=== PATIENT | female | born 1990 ===

== ENCOUNTER 2020-12-24 11:12 | Outpatient (REF) | payer OTHER, SELFPAY ==
[2020-12-24 13:37] LABS: Hematocrit 36.4 % (37-47); Hemoglobin 11.3 g/dl (12.0-16.0); Mean Corpuscular Hemoglobin 26.3 pg (27.0-33.0); Mean Corpuscular Volume 84.8 fL (80-98); Platelet Count 378 X10*3/uL (160-400); Red Blood Count 4.29 X10*6/uL (4.20-5.50); Red Cell Distribution Width 14.1 % (11.0-16.0); White Blood Count 8.3 X10*3/uL (4.8-10.8)
[2020-12-24 14:06] LABS: Glucose Random 80 mg/dL (60-115)
[2020-12-24 14:22] LABS: Thyroid Stimulating Hormone 3.65 uIU/mL (0.32-4.0)
[2020-12-24 16:35] LABS: CT PCR NOT DETECTED (Not Detect.); NG PCR NOT DETECTED (Not Detect.)
[2020-12-25 09:24] LABS: BV Int Neg Control Negative (Negative); BV Int Pos Control Positive (Positive)
[2020-12-27 00:36] LABS: HPV mRNA E6/E7 rflx Not Detected (Not Detected)
== END 2020-12-24 11:13 | disposition home or self-care (01) ==
LOC: HO.LAB 11:12
PROVIDERS: Visit Provider Advanced Practice Midwife
DX: N92.4 Excessive bleeding in the premenopausal period (principal); E66.01 Morbid (severe) obesity due to excess calories; Z68.42 Body mass index [BMI] 45.0-49.9, adult; Z87.42 Personal history of other diseases of the female genital tract; Z20.2 Contact with and (suspected) exposure to infections with a predominantly sexual mode of transmission
CPT/HCPCS: 36415; 82947; 84443; 85027; 87480; 87491; 87510; 87591; 87624; 87660; 88142; 99212

== ENCOUNTER 2021-03-26 14:38 | Outpatient (REF) | payer OTHER, SELFPAY ==
--- NOTE | ~2021-03-26 | US_ITS ---
EXAMINATION: PELVIC ULTRASOUND CLINICAL INFORMATION: Obesity COMPARISON: Previous exam March 2018 TECHNIQUE: Transabdominal and transvaginal pelvic ultrasound was performed. Transvaginal exam was performed for better visualization of the uterus and ovaries. FINDINGS: The uterus is anteverted and retroflexed and measures 8.9 x 3.5 x 5.4 cm in dimension. No focal uterine lesion is seen. Endometrial thickness is normal measuring 1.4 cm. There is polycystic appearance of both ovaries with multiple small peripheral cysts or follicles. The right ovary measures 3.2 x 3.1 x 3.1 cm, volume 16 mL in the left ovary measures 3.1 x 2.6 x 3 cm, volume 13 mL. There is no fluid in the pelvis. US/US transvaginal IMPRESSION: Polycystic appearing ovaries. Normal thickness endometrium.
--- NOTE | ~2021-03-26 | US_ITS ---
EXAMINATION: PELVIC ULTRASOUND CLINICAL INFORMATION: Obesity COMPARISON: Previous exam March 2018 TECHNIQUE: Transabdominal and transvaginal pelvic ultrasound was performed. Transvaginal exam was performed for better visualization of the uterus and ovaries. FINDINGS: The uterus is anteverted and retroflexed and measures 8.9 x 3.5 x 5.4 cm in dimension. No focal uterine lesion is seen. Endometrial thickness is normal measuring 1.4 cm. There is polycystic appearance of both ovaries with multiple small peripheral cysts or follicles. The right ovary measures 3.2 x 3.1 x 3.1 cm, volume 16 mL in the left ovary measures 3.1 x 2.6 x 3 cm, volume 13 mL. There is no fluid in the pelvis. US/US pelvic complete IMPRESSION: Polycystic appearing ovaries. Normal thickness endometrium.
== END 2021-03-26 14:39 | disposition home or self-care (01) ==
LOC: HO.US 14:38
PROVIDERS: Visit Provider Advanced Practice Midwife
DX: N92.4 Excessive bleeding in the premenopausal period (principal); E66.01 Morbid (severe) obesity due to excess calories
CPT/HCPCS: 76830; 76856

== ENCOUNTER → 2021-04-03 15:13 | Outpatient (BNVA) | payer OTHER, SELFPAY | PROVIDERS: Visit Provider Advanced Practice Midwife ==

== ENCOUNTER 2021-06-16 13:33 | Outpatient (REF) | payer OTHER, SELFPAY ==
[2021-06-17 01:58] LABS: CT PCR NOT DETECTED (Not Detect.); NG PCR NOT DETECTED (Not Detect.)
[2021-06-17 09:14] LABS: BV Int Neg Control Negative (Negative); BV Int Pos Control Positive (Positive)
== END 2021-06-16 13:34 | disposition home or self-care (01) ==
LOC: HO.LAB 13:33
PROVIDERS: Visit Provider Advanced Practice Midwife
DX: Z01.419 Encounter for gynecological examination (general) (routine) without abnormal findings (principal); N92.1 Excessive and frequent menstruation with irregular cycle; E28.2 Polycystic ovarian syndrome; E66.01 Morbid (severe) obesity due to excess calories; N92.4 Excessive bleeding in the premenopausal period; Z87.42 Personal history of other diseases of the female genital tract; Z20.2 Contact with and (suspected) exposure to infections with a predominantly sexual mode of transmission
CPT/HCPCS: 58100; 81025; 87480; 87491; 87510; 87591; 87660; 88305; 99212

== ENCOUNTER → 2021-12-24 14:06 | Outpatient (BNVA) | payer OTHER, SELFPAY | PROVIDERS: Visit Provider Advanced Practice Midwife | DX: E28.2 Polycystic ovarian syndrome (principal); N92.4 Excessive bleeding in the premenopausal period; E66.01 Morbid (severe) obesity due to excess calories; Z87.42 Personal history of other diseases of the female genital tract; Z68.41 Body mass index [BMI] 40.0-44.9, adult | CPT/HCPCS: 99212 ==

== ENCOUNTER 2022-12-20 05:57 | Emergency (ER) | payer OTHER, SELFPAY ==
--- NOTE | ~2022-12-20 | XR_ITS ---
EXAMINATION: XR CHEST CLINICAL INFORMATION: Cough COMPARISON: 10/11/2017 TECHNIQUE: AP portable upright view of the chest was obtained. FINDINGS: No significant abnormality is noted involving the heart, lungs, mediastinum, bony thorax or soft tissues. XR/XR chest 1V IMPRESSION: Unremarkable examination.
[2022-12-20 06:07] VITALS: BP 114/86; PULSE 70; RESP 15; TEMP 36.6; O2SAT 100; BMI 35.4
[2022-12-20 06:38] LABS: IDNOW Serial# 08D9AD1C; Strep A Nucleic Acid Negative (Negative)
[2022-12-20 07:07] LABS: Influenza A PCR NEGATIVE (Negative); Influenza B PCR NEGATIVE (Negative); Resp Syncy Virus RNA Qual PCR NEGATIVE (Negative); SARS COV2 PCR INHOUSE NEGATIVE (Negative)
[2022-12-20 07:14] VITALS: BP 113/76; PULSE 68; RESP 16; TEMP 36.9; O2SAT 100
--- NOTE | 2022-12-20 07:15 | ED_ITS ---
HPI - General Adult General Chief complaint: General Medical Stated complaint: body aches, sore throat Time Seen by Provider: 12/20/22 06:54 Source: patient, family and asl interpreter Mode of arrival: ambulatory Limitations: no limitations History of Present Illness HPI narrative: 32-year-old female came in for evaluation of sore throat, nasal congestion and coughing with no sputum, generalized body ache, no fever, no chills. 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 Related Data Home Medications Medication Instructions Recorded Confirmed lorazepam 1 mg tablet 1 mg PO DAILY PRN 04/03/21 12/24/21 trazodone 50 mg tablet 50 mg PO BEDTIME PRN 04/03/21 12/24/21 Allergies Allergy/AdvReac Type Severity Reaction Status Date / Time meperidine [From DEMEROL] Allergy Unknown SWELLING, Verified 12/24/21 14:46 ITCHY Review of Systems Review of Systems: All other systems are reviewed and are negative Constitutional: Reports as per HPI and Reports no additional constitutional com plaints Eyes: Reports as per HPI and Reports no additional eye complaints Reports system reviewed and no additional complaints, except as documented Cardiovascular: Reports as per HPI and Reports no additional cardiovascular complaints Respiratory: Reports as per HPI and Reports no additional respiratory complaints Gastrointestinal: Reports as per HPI and Reports no additional gastrointestinal complaints Genitourinary: Reports no additional female genitourinary complaints Musculoskeletal: Reports no additional musculoskeletal complaints Skin/Breast: Reports system reviewed and no additional complaints, except as docu Psychiatric: Reports no additional psychiatric complaints Endocrine: Reports no additional endocrine complaints Hematologic/Lymphatic: Reports no additional hematologic/lymphatic complaints Allergic/Immunologic: Reports no additional allergic/immunologic complaints Reports system reviewed and no additional complaints, except as documented and Reports Abnormal speech present [facility] Past Medical History Medical History Anxiety Depressed Surgical History History of loop electrical excision procedure (LEEP) Hx of cholecystectomy Family History Family History Mother HTN (hypertension) Diabetes Father HTN (hypertension) Social History Social History Alcohol intake: never Advance Directives: No Gender identity: Female Physical Exam ED Vital Signs: Vital Signs - 24 hr 12/20/22 06:07 12/20/22 07:14 Temperature 97.9 F 98.4 F Pulse Rate 70 68 Respiratory Rate 15 16 Blood Pressure 114/86 113/76 Pulse Oximetry 100 100 Oxygen Delivery Method Room Air Room Air BMI result Body Mass Index 35.4 Vital signs have been reviewed as appeared to be correct. Blood pressure normal. Heart rate normal. Respiration rate normal. Temperature normal. Oxygen saturation normal. Appearance: Alert. Oriented X3. No acute distress. Head: Normal external exam. Normocephalic. Atraumatic. No Jordan signs noted. No raccoon eyes noted Eyes: PERRLA. EOMI. Conjunctiva and sclera normal. Eyelids normal. ENT: TM's Normal. Pharynx normal. Uvula midline. Moist mucous membranes. No trismus noted. No drooling noted. No muffled voice noted. Neck: Normal inspection. Neck supple. FROM. No adenopathy. Thyroid Normal. No meningeal signs. No neck mass noted. CVS: Normal heart rate and rhythm. Heart sound normal. No murmurs noted. Pulses normal throughout. Respiratory: No respiratory distress. Painless inspiration. Breath sounds normal. No wheezes/rales/rhonchi noted. Chest nontender. No accessory muscle usage noted or decreased air movement noted. Abdomen: Soft and nontender. Bowel sounds normal in all 4 quadrants. No distention noted. No organomegaly noted. No visible injury noted. Back: No CVA tenderness. Full range of motion noted. Skin: Skin warm and dry. Normal skin color. Normal skin turgor. No rashes/lesions/lacerations noted. Extremities: No lower extremity edema. Extremities exhibit normal range of motion. Extremities nontender. Neuro: Oriented X 3. Cranial nerve exam: II-XII are grossly intact No motor deficit. No sensory deficit. Reflexes normal. Course Course Course Narrative: 32-year-old female came in with flu-like symptoms. Patient has a negative rapid strep, negative upper respiratory panel. Will reassure use Tylenol/ibuprofen p.r.n. symptoms. Medical Decision Making Differential Diagnosis Differential Diagnoses: The differential diagnosis associated with the presentation includes (Strep pharyngitis, viral infection. Pneumonia) Lab Data MDM Lab Attestation statement: I reviewed the patient's lab results. Labs: Lab Results 12/20/22 12/20/22 Range/Units 06:23 06:23 Influenza Type A (PCR) NEGATIVE (Negative) Influenza Type B (PCR) NEGATIVE (Negative) RSV RNA Qual (PCR) NEGATIVE (Negative) SARS-CoV-2 RNA (RT-PCR) NEGATIVE (Negative) S. pyogenes GrpA HENRIQUE Negative (Negative) Independent Interpretation I performed an independent interpretation of an: Plain X-Ray (Chest: No acute intrathoracic pathology.) Discharge Plan Discharge Clinical Impression: Acute viral syndrome Patient Disposition: Home, Self-Care Instructions: Viral Syndrome (ED) Additional Instructions: Take Tylenol/ibuprofen 200 mg tablet ([id number]) every 6 hours if needed. Prescriptions: No Action lorazepam 1 mg tablet 1 mg PO DAILY PRN trazodone 50 mg tablet 50 mg PO BEDTIME PRN Stand Alone Forms: Work/School Release
--- NOTE | 2022-12-20 07:15 | PC.NURSE ---
assumed care of patient, VSS, resting comfortably, awaiting swab results
[2022-12-20 09:03] VITALS: BP 102/75; PULSE 74; RESP 16; O2SAT 100
== END 2022-12-20 09:07 | disposition home or self-care (01) ==
PROVIDERS: Emergency Provider Emergency Medicine
DX: B34.9 Viral infection, unspecified (principal); M79.10 Myalgia, unspecified site; R05.9 Cough, unspecified; Z20.822 Contact with and (suspected) exposure to COVID-19; Z20.828 Contact with and (suspected) exposure to other viral communicable diseases; Z79.899 Other long term (current) drug therapy
CPT/HCPCS: 0241U; 36415; 71045; 87651; 99283

== ENCOUNTER 2023-08-17 15:09 | Outpatient (AMB) | payer OTHER, SELFPAY ==
--- OUTSIDE RECORDS SUMMARY | 2023-08-17 15:10 | XMS_ITS | Continuity of Care Document ---
Author Name Unknown Organization [facility] ter Address [address] [place] [id number]- Care Team Providers Care Dividend Deposit Entry Clerk Name Role Phone Not on Staff, PCP Primary Care Physician Unavail able Encounter [facility] Date(s): 03/10/20 - 03/11/[address] [address]- [facility] Encounter Diagnosis Abdominal pain(Final) - 03/11/20 Fever(Final) - 03/11/20 Discharge Disposition: A-D/C Home Attending Physician: Jerry Carlisle MD Admitting Physician: Jerry Carlisle MD Referring Physician: Not on Staff, Referring MD Allergies, Adverse Reactions, Alerts Substance Reaction Severity Status morphine Active Medications No Known Medications Results Radiology Reports * Exam Date Time Procedure Performing Provider Status 03/11/20 12:08 AM Chest Portable Lisbet Santillan ( Verified) Notes: (Chest Portable) Reason For Exam: Shortness of Breath RESULT: Chest Portable Chest Portable AP upright at 11:39 PM on 03/10/2020. Reason: Shortness of breath. COMPARISON: None. FINDINGS: LINES AND TUBES: None. LUNGS AND PLEURA: Clear lungs. Normal pulmonary vascularity. No pleural effusion. No pneumothorax. HEART, MEDIASTINUM AND STEPHANIE: Heart is normal in size. Normal mediastinal and hilar contour. BONES AND SOFT TISSUES: No acute abnormality. IMPRESSION: No acute abnormality. I have personally reviewed the images and I agree with this report. WSN: [id number] Ordering Physician: Main Swain Dictated By: Ruslan Sotelo DO Dictated Date/Time: 03/11/20 7:40 am Reviewed By: Mohit Castro MD Signed By: Mohit Castro MD Signed Date/Time: 03/11/20 7:45 am Transcribed By: WILDER Transcribed Date/Time: 03/11/20 5:07 am Vital Signs Most recent to oldest [Reference Range]: 1 2 3 Oxygen Saturation [94-100 %] 99 % (03/11/20 3:32 AM) 100 % (03/11/20 1:41 AM) 100 % (03/10/20 11:46 PM) Pulse Rate [55-90 bpm] 72 bpm (03/11/20 3:32 AM) 82 bpm (03/11/20 1:41 AM) 81 bpm (03/10/20 11:46 PM) Blood Pressure [90-138/55-84 mm Hg] 111/75mm Hg (03/11/20 3:32 AM) 113/53mm Hg (03/11/20 1:41 AM) 108/66mm Hg (03/10/20 11:46 PM) Respiratory Rate [16-30 br/min] 16 br/min (03/11/20 3:32 AM) 17 br/min (03/11/20 1:41 AM) 18 br/min (03/10/20 11:46 PM) Temperature [96.8-100.4 DegF] 98.2 DegF (03/11/20 3:32 AM) 98.2 DegF (03/10/20 11:46 PM) 98.3 DegF (03/10/20 10:16 PM) Mode of Delivery (Oxygen) Room air (03/11/20 3:32 AM) Room air (03/11/20 1:41 AM) Room air (03/10/20 11:46 PM) Blood pressure sites Arm, left (03/11/20 3:32 AM) Arm, left (03/11/20 1:41 AM) Arm, left (03/10/20 11:46 PM) Temperature Route Oral (03/11/20 3:32 AM) Oral (03/10/20 11:46 PM) Oral (03/10/20 10:16 PM)
--- OUTSIDE RECORDS SUMMARY | 2023-08-17 15:10 | XMS_ITS | Continuity of Care Document ---
Author Name Unknown Organization [facility] Address [address] [place] [address]- Care Team Providers Care Music Instructor Name Role Phone Not on Staff, PCP Primary Care Physician Unavail able Encounter [facility] [place] Date(s): 10/30/20 - 10/30/[address] [address]- Discharge Disposition: A-D/C Home Attending Physician: Lenin Seo DO Admitting Physician: Lenin Seo DO Referring Physician: Not on Staff, Referring MD Allergies, Adverse Reactions, Alerts Substance Reaction Severity Status morphine Active Demerol Active Results Orders for Microbiology Reports Name Date Urine Culture (URINE CULTURE) 10/30/20 Microbiology Reports TEST:Urine Culture STATUS:Unauthenticated BODY SITE: SOURCE:URINE COLLECTED DATE/TIME:10/30/20 6:28 PM Urine Culture SPECIMEN DESCRIPTION : URINE CLEAN CATCH/MIDSTREAM SPECIAL REQUESTS : NONE Reflexed from [id number] REPORT STATUS : PRELIMINARY REPORT Vital Signs Most recent to oldest [Reference Range]: 1 2 3 Height 160 cm (10/30/20 9:19 PM) 160 cm (10/30/20 6:15 PM) Weight 118 kg (10/30/20 9:19 PM) 118 kg (10/30/20 6:15 PM) Oxygen Saturation [94-100 %] 100 % (10/30/20 9:19 PM) 100 % (10/30/20 6:15 PM) 98 % (10/30/20 5:58 PM) Pulse Rate [55-90 bpm] 82 bpm (10/30/20 9:19 PM) 91 bpm *H* (10/30/20 6:15 PM) 94 bpm *H* (10/30/20 5:58 PM) Body Mass Index [18.5-24.99] 46.09 *>HHI* (10/30/20 9:19 PM) 46.09 *>HHI* (10/30/20 6:15 PM) Blood Pressure [90-138/55-84 mm Hg] 125/72mm Hg (10/30/20 9:19 PM) 122/82mm Hg (10/30/20 6:15 PM) Respiratory Rate [16-30 br/min] 18 br/min (10/30/20 9:19 PM) 19 br/min (10/30/20 6:15 PM) Temperature [96.8-100.4 DegF] 98.1 DegF (10/30/20 6:15 PM) Mode of Delivery (Oxygen) Room air (10/30/20 9:19 PM) Room air (10/30/20 6:15 PM) Blood pressure sites Arm, left (10/30/20 9:19 PM) Arm, left (10/30/20 6:15 PM) Temperature Route Oral (10/30/20 6:15 PM) Dry Weight 118 kg (10/30/20 9:19 PM) 118 kg (10/30/20 6:15 PM) Weight Obtained Via Patient/family state d (10/30/20 6:15 PM) Dry Weight Obtained Via Patient/family s tated (10/30/20 6:15 PM)
--- OUTSIDE RECORDS SUMMARY | 2023-08-17 15:10 | XMS_ITS | Continuity of Care Document ---
Author Name Unknown Organization [facility] Address [address] [place] [address]- Care Team Providers Care Fork Lift Truck Operator Name Role Phone Not on Staff, PCP Primary Care Physician Unavail able Encounter [facility] [place] Date(s): 09/18/21 - 09/19/[address] [address]- Discharge Disposition: A-D/C Walkout Attending Physician: Sebastián Max MD Admitting Physician: Sebastián Max MD Referring Physician: Not on Staff, Referring MD Allergies, Adverse Reactions, Alerts Substance Reaction Severity Status morphine Active Demerol Active Vital Signs Most recent to oldest [Reference Range]: 1 2 Oxygen Saturation [94-100 %] 97 % (09/18/21 9:11 PM) 100 % (09/18/21 8:52 PM) Pulse Rate [55-90 bpm] 93 bpm *H* (09/18/21 9:11 PM) 101 bpm *H* (09/18/21 8:52 PM) Blood Pressure [90-138/55-84 mm Hg] 120/ 77mm Hg (09/18/21 9:11 PM) Respiratory Rate [16-30 br/min] 18 br/mi n (09/18/21 9:11 PM) Temperature [96.8-100.4 DegF] 99.4 DegF (09/18/21 9:11 PM) Mode of Delivery (Oxygen) Room air (09/18/21 9:11 PM) Room air (09/18/21 8:52 PM) Blood pressure sites Arm, left (09/18/21 9:11 PM) Temperature Route Oral (09/18/21 9:11 PM)
--- OUTSIDE RECORDS SUMMARY | 2023-08-17 15:10 | XMS_ITS | Continuity of Care Document ---
Author Name Unknown Organization [facility] ter Address [address] [place] [id number]- Care Team Providers Care Mussel Opener Name Role Phone Not on Staff, PCP Primary Care Physician Unavail able [place] [facility] [place] - 12/21/[address] [address]- Discharge Disposition: A-D/C Home Attending Physician: Keesha Vasquez MD Admitting Physician: Keesha Vasquez MD Referring Physician: Not on Staff, Referring MD Allergies, Adverse Reactions, Alerts Substance Reaction Severity Status morphine Active Demerol Active Results Radiology Reports * Exam Date Time Procedure Performing Provider Status 12/21/21 2:59 PM Chest 2 Views Frontal and Lat Ekenbarg er , Venus L; Auth (Verified) Notes: (Chest 2 Views Frontal and Lat) Reason For Exam: Cough RESULT: Chest 2 Views Frontal and Lat Chest 2 Views Frontal and Lat HX OF PRESENT ILLNESS: Cough; Clinical Question(s): Pneumonia / Pneumonia COMPARISON: 03/10/2020 FINDINGS: LINES AND TUBES: None. LUNGS AND PLEURA: Clear lungs. Normal pulmonary vascularity. No pleural effusion. No pneumothorax. HEART, MEDIASTINUM AND STEPHANIE: Heart is normal in size. Normal mediastinal and hilar contour. BONES AND SOFT TISSUES: No acute abnormality. IMPRESSION: No evidence of acute abnormality. WSN: [id number] Ordering Physician: Keesha Vasquez Dictated By: Ruben Paulson MD Dictated Date/Time: 12/21/21 3:01 pm Reviewed By: Ruben Paulson MD Signed By: Ruben Paulson MD Signed Date/Time: 12/21/21 3:01 pm Transcribed By: WILDER Transcribed Date/Time: 12/21/21 3:00 pm Vital Signs Most recent to oldest [Reference Range]: 1 2 3 Height 155 cm (12/21/21 12:57 PM) Weight 120 kg (12/21/21 12:57 PM) Oxygen Saturation [94-100 %] 97 % (12/21/21 1:27 PM) 100 % (12/21/21 12:57 PM) 100 % (12/21/21 12:55 PM) Pulse Rate [55-90 bpm] 84 bpm (12/21/21 1:27 PM) 95 bpm *H* (12/21/21 12:57 PM) 96 bpm *H* (12/21/21 12:55 PM) Blood Pressure [90-138/55-84 mm Hg] 114/59mm Hg (12/21/21 1:27 PM) 133/78mm Hg (12/21/21 12:57 PM) Respiratory Rate [16-30 br/min] 15 br/min *L* (12/21/21 1:27 PM) 18 br/min (12/21/21 12:57 PM) Temperature [96.8-100.4 DegF] 98.0 DegF (12/21/21 1:27 PM) 98.0 DegF (12/21/21 12:57 PM) Mode of Delivery (Oxygen) Room air (12/21/21 1:27 PM) Room air (12/21/21 12:57 PM) Room air (12/21/21 12:55 PM) Temperature Route Oral (12/21/21 1:27 PM) Dry Weight 120 kg (12/21/21 12:57 PM) Social History Social History Type Response Smoking Status Never (less than 100 in lifetime) entered on: 12/21/21 Sex
--- NOTE | 2023-08-17 15:11 | A.OFFVIS_ITS ---
Intake Vital Signs 08/17/23 15:12 Height 5 ft 3 in Weight 203 lb BMI 36.0 BP 116/66 Intake Visit Reasons: Irregular menstrual Intake Note: having irregular periods Occupational Therapy Supervisor Required: Yes Occupational Therapy Supervisor Language: Faroese Allergies meperidine [From DEMEROL] Allergy (Unknown, Verified 08/17/23 15:16) SWELLING, ITCHY Medication List - Last Reconciled 08/17/23 by Judi Yanez CNM bupropion HCl 150 mg PO QAM escitalopram oxalate 20 mg PO DAILY lorazepam 1 mg PO DAILY PRN Is last menstrual period known: Yes Last menstrual period: 08/13/23 Post menopausal: No HPI Irregular menstrual HPI Details Patient is here to discuss her regular periods. She has been seen here in the past and full discussions have taken place of her regular periods she has had various procedures done including of an endometrial biopsy ultrasounds and a full discussions about PCOS and its role in her irregular menses at the time she was last seen she was not interested in having any more children and a Mirena was discussed and recommended it however she did not return for the Mirena. Today she is here with her 3 children and she tells me things are a little bit different now and now she is actually trying to have a baby she says she has been keeping track of her periods in her apps on her phone and has been working hard at it she cites the last few periods as the following: She had a period on May 23 and most for periods last about for 5 days, then she had a period on June 23 and then she had a period on July 26 then this last period came early on August 13 it stopped and started for a while but it was heavier on the and the and today is very little just a little china , she has been keeping track of predicted ovulation via a 2 different apps on her phone and more importantly she has been keeping track of her own symptoms. All of this was discussed with her previous visits as well. She also has made concerted efforts in the last year and half to lose weight and she was 260 lb at her heaviest and got down as low as 194 though today she is 202. She is continuing to try and eat healthy and is keeping track of her symptoms of ovulation as well including how she feels with libido and vaginal secretions. She is aware that she is 33 years old and she does not want to waste time and wait too long and she is wondering how long she should try and how long is too long. Discussed that with PCOS and increasing years that fertility does wane over time but I congratulated her on her weight loss and discussed how this d efinitely improved her chances. Additionally I did discuss that at age 33 with keeping very good records of efforts and proof of ovulation and considering using 0 P Nano's that she would need at least 6 months records before trying to be seen at [facility] reproductive infertility. I also did discuss the reality that many insurances are not accepted. But that if she did need any assistance with ovulation that is where she would need to be seen. Also discussed that there have been recent limitations on referrals in the past. I urged her to take advantage of every opportunity to maximize use of her time. She has an appointment at the end of the year and if she has not gotten by then that would be 6 months of trying with records and then perhaps we could place a referral though I did tell her of the limitations a referrals as well. I told her that we are no longer able to facilitate ovulation with medications and other modalities as was possible in the past. She did not know that the birthing center had closed so I informed her that as well and that we are sending everyone to [facility] now to deliver. [facility] Medical History Anxiety Depressed Surgical History History of loop electrical excision procedure (LEEP) Hx of cholecystectomy Family History Mother HTN (hypertension) Diabetes Father HTN (hypertension) Social History Alcohol intake: never Gender identity: Female Female Reproductive History Menstrual Age of Menarche: 9 Duration of menses: 3-5 days Date of last menstrual period: 08/13/23 control method: none Total pregnancies: 2 Full term: 2 Number of Living Children: 3 Multiple births: 1 Date of last pap smear: 12/25/20 (negative) History of abnormal pap smear: Yes (hx of leep) Physical Exam Vital Signs: Last Vital Signs BP 116/66 08/17/23 15:12 BMI result Body Mass Index 36.0 Results Reviewed Results Reviewed: Visits and evaluations of last year noted Assessment & Plan Assessment & Plan (1) Polycystic bilateral ovaries: Code(s): E28.2 - Polycystic ovarian syndrome (2) Hx of abnormal cervical Pap smear: Comment: CIN3 2016, 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 pap done 12/24/20=neg ,w neg hpv Code(s): Z87.42 - Personal history of other diseases of the female genital tract (3) Obesity, morbid, BMI 40.0-49.9: Comment: Patient has lost weight in concerted effort and is now BMI of 36.08/17/23. Code(s): E66.01 - Morbid (severe) obesity due to excess calories (4) Menorrhagia, premenopausal: Code(s): N92.4 - Excessive bleeding in the premenopausal period Coding Level of Care Code Est Pt Level 3 (95416) Diagnoses Polycystic bilateral ovaries E28.2 Hx of abnormal cervical Pap smear Z87.42 Obesity, morbid, BMI 40.0-49.9 E66.01 Menorrhagia, premenopausal N92.4
--- OUTSIDE RECORDS SUMMARY | 2023-08-17 15:11 | XMS_ITS | Continuity of Care Document ---
Author Name Unknown Organization [facility] Address [address] [place] [address]- Care Team Providers Care Able Seaman Name Role Phone Not on Staff, PCP Primary Care Physician Unavail able Encounter [facility] [place] Date(s): 02/17/22 - 02/17/[address] [address]- Discharge Disposition: A-D/C Walkout Attending Physician: Sebastián Max MD Admitting Physician: Sebastián Max MD Referring Physician: Not on Staff, Referring MD Allergies, Adverse Reactions, Alerts Substance Reaction Severity Status morphine Active Demerol Active Vital Signs Most recent to oldest [Reference Range]: 1 2 3 Height 160 cm (02/17/22 11:57 AM) Weight 100 kg (02/17/22 11:57 AM) Oxygen Saturation [94-100 %] 99 % (02/17/22 12:12 PM) 100 % (02/17/22 9:52 AM) 99 % (02/17/22 9:43 AM) Pulse Rate [55-90 bpm] 81 bpm (02/17/22 12:12 PM) 94 bpm *H* (02/17/22 9:52 AM) 88 bpm (02/17/22 9:43 AM) Blood Pressure [90-138/55-84 mm Hg] 121/72mm Hg (02/17/22 12:12 PM) 145/90mm Hg *H* (02/17/22 9:52 AM) Respiratory Rate [16-30 br/min] 17 br/min (02/17/22 9:52 AM) Temperature [96.8-100.4 DegF] 98.7 DegF (02/17/22 12:12 PM) 98.9 DegF (02/17/22 9:52 AM) Mode of Delivery (Oxygen) Room air (02/17/22 12:12 PM) Room air (02/17/22 9:52 AM) Room air (02/17/22 9:43 AM) Blood pressure sites Arm, right (02/17/22 12:12 PM) Arm, right (02/17/22 9:52 AM) Temperature Route Oral (02/17/22 12:12 PM) Oral (02/17/22 9:52 AM) Dry Weight 100 kg (02/17/22 11:57 AM) Dry Weight Obtained Via Patient/family s tated (02/17/22 11:57 AM) Social History Social History Type Response Smoking Status Never (less than 100 in lifetime) entered on: 12/21/21 Sex
--- OUTSIDE RECORDS SUMMARY | 2023-08-17 15:11 | XMS_ITS | Continuity of Care Document ---
Author Name Unknown Organization [facility] ter Address [address] [place] [address]- Care Team Providers Care Socially Responsible Investment Adviser Name Role Phone Not on Staff, PCP Primary Care Physician Unavail able Encounter [facility] [place] Date(s): 01/02/22 - 01/02/[address] [address]- Encounter Diagnosis Chest pain(Final) - 01/02/22 Discharge Disposition: A-D/C Long-Term, Usp, or Fdc Fac Attending Physician: Sebastián Tovar MD Admitting Physician: Sebastián Tovar MD Referring Physician: Not on Staff, Referring MD Allergies, Adverse Reactions, Alerts Substance Reaction Severity Status morphine Active Demerol Active Results Radiology Reports * Exam Date Time Procedure Performing Provider Status 01/02/22 3:11 PM Chest Portable Zora Enriquez; Auth (Ve rified) Notes: (Chest Portable) Reason For Exam: Pleuritic Pain RESULT: Chest Portable Chest Portable Reason: Pleuritic Pain; Clinical Question(s): Pneumothorax COMPARISON: 12/21/2021 FINDINGS: LINES AND TUBES: None. LUNGS AND PLEURA: Clear lungs. Normal pulmonary vascularity. No pleural effusion. No pneumothorax. HEART, MEDIASTINUM AND STEPHANIE: Heart is normal in size. Normal upper mediastinal and hilar contour. BONES AND SOFT TISSUES: No acute abnormality. IMPRESSION: Normal chest. WSN: [id number] Ordering Physician: Harrison Ramos Dictated By: Harrison Monroe MD Dictated Date/Time: 01/02/22 3:47 pm Reviewed By: Harrison Monroe MD Signed By: Harrison Monroe MD Signed Date/Time: 01/02/22 3:47 pm Transcribed By: WILDER Transcribed Date/Time: 01/02/22 3:47 pm Vital Signs Most recent to oldest [Reference Range]: 1 2 Oxygen Saturation [94-100 %] 99 % (01/02/22 6:35 PM) 100 % (01/02/22 1:52 PM) Pulse Rate [55-90 bpm] 73 bpm (01/02/22 6:35 PM) 93 bpm *H* (01/02/22 1:52 PM) Blood Pressure [90-138/55-84 mm Hg] 118/ 68mm Hg (01/02/22 6:35 PM) 147/76mm Hg *H* (01/02/22 1:52 PM) Respiratory Rate [16-30 br/min] 18 br/mi n (01/02/22 6:35 PM) 17 br/min (01/02/22 1:52 PM) Temperature [96.8-100.4 DegF] 98.5 DegF (01/02/22 1:52 PM) Mode of Delivery (Oxygen) Room air (01/02/22 6:35 PM) Room air (01/02/22 1:52 PM) Blood pressure sites Arm, right (01/02/22 6:35 PM) Arm, right (01/02/22 1:52 PM) Temperature Route Oral (01/02/22 1:52 PM) Social History Social History Type Response Smoking Status Never (less than 100 in lifetime) entered on: 12/21/21 Sex
--- OUTSIDE RECORDS SUMMARY | 2023-08-17 15:11 | XMS_ITS | Continuity of Care Document ---
Author Name Unknown Organization [facility] Address [address] [place] [address]- Care Team Providers Care Compression Molding Machine Setter Name Role Phone Not on Staff, PCP Primary Care Physician Unavail able Encounter [facility] [place] [place] Date(s): 12/25/20 - 12/26/[address] [address]- Discharge Disposition: A-D/C Walkout Attending Physician: Not on Staff, Attending MD Admitting Physician: Not on Staff, Admitting MD Referring Physician: Not on Staff, Referring MD Allergies, Adverse Reactions, Alerts Substance Reaction Severity Status morphine Active Demerol Active Vital Signs Most recent to oldest [Reference Range]: 1 2 Oxygen Saturation [94-100 %] 98 % (12/26/20 12:19 AM) 100 % (12/25/20 10:13 PM) Pulse Rate [55-90 bpm] 92 bpm *H* (12/26/20 12:19 AM) 100 bpm *H* (12/25/20 10:13 PM) Blood Pressure [90-138/55-84 mm Hg] 131/ 71mm Hg (12/26/20 12:19 AM) 137/92mm Hg (12/25/20 10:13 PM) Respiratory Rate [16-30 br/min] 18 br/mi n (12/26/20 12:19 AM) 16 br/min (12/25/20 10:13 PM) Temperature [96.8-100.4 DegF] 98.7 DegF (12/26/20 12:19 AM) 98.6 DegF (12/25/20 10:13 PM) Mode of Delivery (Oxygen) Room air (12/26/20 12:19 AM) Room air (12/25/20 10:13 PM) Blood pressure sites Arm, right (12/26/20 12:19 AM) Arm, left (12/25/20 10:13 PM) Temperature Route Oral (12/26/20 12:19 AM) Oral (12/25/20 10:13 PM)
[2023-08-17 15:12] VITALS: BP 116/66; BMI 36.0
== END 2023-08-17 15:56 | disposition home or self-care (01) ==
LOC: HO.HWS 15:09
PROVIDERS: PCP Internal Medicine; Visit Provider Advanced Practice Midwife
DX: E28.2 Polycystic ovarian syndrome (principal); Z87.42 Personal history of other diseases of the female genital tract; E66.01 Morbid (severe) obesity due to excess calories; N92.4 Excessive bleeding in the premenopausal period
CPT/HCPCS: 99213

== ENCOUNTER → 2023-08-17 15:09 | Outpatient (BNVA) | payer OTHER, SELFPAY | PROVIDERS: PCP Internal Medicine; Visit Provider Advanced Practice Midwife | DX: N92.4 Excessive bleeding in the premenopausal period (principal); E28.2 Polycystic ovarian syndrome; E66.01 Morbid (severe) obesity due to excess calories; Z87.42 Personal history of other diseases of the female genital tract; Z68.36 Body mass index [BMI] 36.0-36.9, adult | CPT/HCPCS: 99212 ==

== ENCOUNTER 2023-11-02 13:39 | Outpatient (AMB) | payer OTHER, SELFPAY ==
[2023-11-02 13:41] VITALS: BP 110/68; BMI 34.7
--- NOTE | 2023-11-02 13:41 | A.OFFVIS_ITS ---
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 Information Interpreted: clinical only Machine Bander And Cellophaner: Machine Bander And Cellophaner Present Allergies meperidine [From DEMEROL] Allergy (Unknown, Verified 11/02/23 13:42) SWELLING, ITCHY Medication List - Last Reviewed 11/02/23 by Sen Rodríguez CMA bupropion HCl 150 mg PO QAM escitalopram oxalate 20 mg PO DAILY lorazepam 1 mg PO DAILY PRN Is last menstrual period known: Yes Last menstrual period: 10/08/23 [facility] BOX STACKER annual exam HPI Details 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 She has no longer trying to get she has no longer with the person that she was with. She has not seeing anybody right now so does not need anything for control currently but when I brought up the subject again at the end of the visit she asked if she could have something because you never know. She has a history of a LEEP and she had an endometrial biopsy for abnormal bleeding in the past as well. Some periods are very painful and some are not. But they are all coming regular now she is feeling very good about her progress with losing weight and is feeling well and she had stopped going to the gym for a month but she is going to start back again. [facility] Medical History (Updated 11/02/23 @ 14:27 by Judi Yanez CNM) Anxiety Depressed Surgical History (Updated 11/02/23 @ 13:56 by Judi Yanez CNM) History of loop electrical excision procedure (LEEP) Hx of cholecystectomy Family History Mother HTN (hypertension) Diabetes Father HTN (hypertension) Social History Alcohol intake: never Gender identity: Female Female Reproductive History Menstrual Age of Menarche: 9 Duration of menses: 3-5 days Date of last menstrual period: 10/08/23 control method: none Date of last pap smear: 12/25/20 (negative) History of abnormal pap smear: Yes (unknown) Physical Exam Vital Signs: Last Vital Signs BP 110/68 11/02/23 13:41 BMI result Body Mass Index 34.7 Const General: healthy appearing, comfortable, no acute distress, well developed and alert Nutritional Appearance: average body habitus Orientation/consciousness: patient oriented x3 Limitations: no limitations HEENT Head: Yes normocephalic Neck Neck: Yes normal visual inspection Chest Chest palpation & inspection: normal inspection of the chest Breast/axilla inspection: normal inspection of the breasts and normal inspection of the axillae Breast/axilla palpation: normal palpation of the breasts and normal palpation of the axillae Resp Effort & Inspection: normal respiratory effort GI Inspection: Yes normal to inspection, No Abdominal wall edema and No distended Palpation (GI): Soft to palpation and nontender Other: External exam within normal limits vagina pink moist clear very clear healthy appearing scant discharge cervix multiparous consistent with status post LEEP with tiny closed os. Patient found it painful when I was doing the Pap smear and cultures but bimanual exam was nontender and there was no cervical motion tenderness it was simply when something is entering her leep scarred os. Uterus small firm anteverted mobile nontender adnexa nontender very weak tone with Kegel patient given instructions in Greenlandic on Kegel exercises General: Yes bladder normal to palpation External Female Exam: normal external appearance and normal appearance of the urethra Speculum Exam - Vagina: normal appearance of the vagina, normal palpation and normal vaginal discharge Speculum Exam - Cervix: normal appearance of the cervix, normal palpation and nontender Bimanual exam- vagina & uterus: normal bimanual exam, normal palpation, uterine size normal, bladder normal to palpation, consistency normal, normal palpation, uterine mobility normal, uterine shape normal, No Cervical tenderness present, non-tender and no cervical motion tenderness Bimanual Exam- Adnexa, other: normal adnexae, no masses, normal and No adnexal tenderness Neuro General: patient oriented x3 Results Reviewed Results Reviewed: Name: Deanna Abraham Age/Sex: 31/F Attending: Judi Yanez CNM : 1990 Submitted by: Judi Yanez CNM Copies to: MR #: [id number] Status: DEP REF Collected: 06/16/21 Location: .LAB Received: 06/17/21 Diagnosis Endometrium, biopsy: Disordered proliferative endometrium with lytic changes; no atypia or hyperplasia seen. Clinical History Menorrhagia Microscopic Description Microscopic sections reviewed. Material Received EMB Gross Description Received in formalin labeled EMB are multiple soft, irregular and tubular cast fragments of congested and hemorrhagic, mc-brown tissue, blood and mucus aggregating 3.0 x 2.2 x 0.5 cm. The specimen is submitted in toto in cassettes A1 and A2. CEDS NOTE: Some or all of the immunohistochemical tests reported herein may have been developed and their performance characteristics determined by [facility]. They have not been cleared or approved by the U.S. Food and Drug Administration (FDA). However, the FDA has determined that such clearance or approval is not necessary. This laboratory is certified under the Clinical Laboratory Improvement Amendments of 1988 (CLIA) as qualified to perform high complexity clinical laboratory testing. Electronically Signed By: Kolton Simmons MD 06/18/21 1404 Patient: Wilfredo Name: Deanna Abraham Age/Sex: 30/F Attending: Judi Yanez CNM : 1990 Submitted by: Judi Yanez CNM Copies to: MR #: [id number] Status: DEP REF Collected: 12/24/20 Location: .LAB Received: 12/25/20 Interpretation Satisfactory for evaluation. Negative for intraepithelial lesion or malignancy. HPV mRNA E6/E7: NOT DETECTED This assay detects E6/E7 viral messenger RNA (mRNA) from 14 high-risk HPV types (16, 18, 31, 33, 35, 39, 45, 51, 52, 56, 58, 59, 66, 68) HPV testing performed by [facility], [place], [place]. See reference laboratory portion of the EMR for entire report. Clinical Information LMP: 12/02/20 Previous PAP test: Unknown Date, abnormal Material Received ThinPrep Cervical Electronically Signed By: Kasey Jade 12/30/20 1401 The Pap Test is a screening procedure with the inherent possibility of both false negative and false positive results. Results should be interpreted in the context of historic and current clinical findings. Reliability of the Pap Test is enhanced by performing the test on a regular repetitive basis. Patient: Wilfredo Page 1 of 1 Assessment & Plan Assessment & Plan (1) Polycystic bilateral ovaries: Code(s): E28.2 - Polycystic ovarian syndrome (2) Hx of abnormal cervical Pap smear: Comment: CIN3 2015, 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 pap done 12/24/20=neg ,w neg hpv; 11/02/23=cervix multiparous consistent with status post LEEP with tiny closed os. Patient found it painful when I was doing the Pap smear and cultures but bimanual exam was nontender and there was no cervical motion tenderness. Code(s): Z87.42 - Personal history of other diseases of the female genital tract (3) Obesity, morbid, BMI 40.0-49.9: Comment: Patient has lost weight in concerted effort and is now BMI of 36.11/.;11/02/23-continuing her efforts and BMI today 34.7! Code(s): E66.01 - Morbid (severe) obesity due to excess calories Plan -----Discussed in this visit the following: healthy balanced diet, regular and consistent exercise, getting recommended health screens, doing the best she can for her particular health concerns, kegel exercises, pap smear screening and followup recommendations, mammography screening and SBE, normal changes in cycles in her life stage--- . Pap smear done as well as cultures she decided she did not need blood work for STIs. She decided she would like to start control pills discussed that since she is 33 years old I normally would not start combination control pills at this age but I would find it acceptable to prescribe progestin only pills. Discussed the much more minimal risk profile and what she should call for I recommend she start pills at the beginning of the next period. Congratulated on her continued weight loss and good efforts she is continuing to try to eat well and not eat junk or sim or sodas or all the things that contributed to her weight gain in the 1st place she will be starting back at the gym soon as well she feels she is doing very well right now. We will see her in 3 months for pill check. Orders: Orders Pap Smear Today Z01.419 - Encounter for gynecological examination (general) (routine) without abnormal findings CT NG by PCR Today Z01.419 - Encounter for gynecological examination (general) (routine) without abnormal findings Bacterial Vaginosis Panel Today Z20.2 - Contact with and (suspected) exposure to infections with a predominantly sexual mode of transmission Medications: New norethindrone (contraceptive) Start at the beginning of her next period. 0.35 mg PO DAILY 84 tabs 3RF Coding Level of Care Code Est Pt Prev Care 18-39y(38794) Diagnoses Polycystic bilateral ovaries E28.2 Hx of abnormal cervical Pap smear Z87.42 Obesity, morbid, BMI 40.0-49.9 E66.01
== END 2023-11-02 14:33 | disposition home or self-care (01) ==
LOC: HO.HWSM 13:39
PROVIDERS: PCP Internal Medicine; Visit Provider Advanced Practice Midwife
DX: Z01.419 Encounter for gynecological examination (general) (routine) without abnormal findings (principal); E28.2 Polycystic ovarian syndrome; Z87.42 Personal history of other diseases of the female genital tract; E66.01 Morbid (severe) obesity due to excess calories
CPT/HCPCS: 99395

== ENCOUNTER 2023-11-02 13:39 | Outpatient (REF) | payer OTHER, SELFPAY ==
[2023-11-03 11:17] LABS: CT PCR NOT DETECTED (Not Detect.); NG PCR NOT DETECTED (Not Detect.)
[2023-11-03 13:12] LABS: BV Int Neg Control Negative (Negative); BV Int Pos Control Positive (Positive)
[2023-11-08 23:49] LABS: HPV mRNA E6/E7 rflx Not Detected (Not Detected)
== END 2023-11-02 13:40 | disposition home or self-care (01) ==
LOC: HO.LAB 13:39
PROVIDERS: PCP Internal Medicine; Visit Provider Advanced Practice Midwife
DX: Z01.419 Encounter for gynecological examination (general) (routine) without abnormal findings (principal); E66.01 Morbid (severe) obesity due to excess calories; E28.2 Polycystic ovarian syndrome; Z20.2 Contact with and (suspected) exposure to infections with a predominantly sexual mode of transmission; Z87.42 Personal history of other diseases of the female genital tract; Z79.899 Other long term (current) drug therapy
CPT/HCPCS: 0353U; 87480; 87510; 87624; 87660; 88142; 99395

== ENCOUNTER 2023-12-01 09:03 | Outpatient (AMB) | payer OTHER, SELFPAY ==
--- NOTE | 2023-12-01 09:09 | MHC.PC.OV ---
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 Bulb Grader Required: Yes Accompanied by: Self / Same As Patient Is last menstrual period known: No Post menopausal: No Patient : No Allergies meperidine [From DEMEROL] Allergy (Unknown, Verified 12/01/23 09:43) SWELLING, ITCHY Medication List - Last Reconciled 12/01/23 by SHAILESH Hensley multivitamin 1 tab PO DAILY Tobacco use date assessed: 12/01/23 Dental Screening Dental Screen Date: 12/01/23 Did you have a dental visit in the last 12 months?: Yes Did you have a dental problem in the last 6 months where you did not have access to dental care?: No Was dental information given to patient?: Patient has dentist HPI HPI Comments History of Present Illness Details Patient is a 33-year-old female here to establish care. She has a past medical history significant for abnormal Pap smear and LEEP procedure, she currently has an established OBGYN, she will send us the records. Patient also has a history of anxiety and depression, she is currently seeing a therapist and states that it is under control. [facility] Medical History (Updated 12/01/23 @ 09:58 by SHAILESH Hensley) Anxiety Depressed Surgical History History of loop electrical excision procedure (LEEP) Hx of cholecystectomy Family History Mother HTN (hypertension) Diabetes Father HTN (hypertension) Social History Housing: Apartment Alcohol intake: never Patient Tobacco Use Status: Former Tobacco user Tobacco use type: Cigarette e-Cigarette/Vaping Use: Never Used Patient : No service: No Current occupational status: unemployed Current occupational exposures/hazards: No Gender identity: Female Cognitive needs: No Hearing needs: No Vision needs: No Female Reproductive History Menstrual Age of Menarche: 9 Questionnaire PHQ-9 Over the last 2 weeks, how often have you been bothered by any of the following problems? 1. Little interest or pleasure in doing things: several days 2. Feeling down, depressed, or hopeless: several days 3. Trouble falling or staying asleep, or sleeping too much: not at all 4. Feeling tired or having little energy: several days 5. Poor appetite or overeating: not at all 6. Feeling bad about yourself - or that you are a failure or have let yourself or your family down: several days 7. Trouble concentrating on things, such as reading the newspaper or watching television: several days 8. Moving or speaking so slowly that other people could have noticed. Or the opposite - being so fidgety or restless that you have been moving around a lot more than usual: not at all 9. Thoughts that you would be better off or of hurting yourself in some way: not at all Total score: 5 Depression Screening Interpretation: Negative Depression Screening Done: Yes 90772 - PHQ-9 Billing: Yes Source: Developed by Drs. Josh Hightower, Monica Vickers, Neil Pierson and colleagues, with an educational anca from [employer]. Thrive Questionnaire Date Thrive assessed: 12/01/23 I am a: Patient What is your living situation today?: I have a steady place to live Within the past 12 months, did the food you bought not last and you didn't have the money to get more?: Never true Within the past 12 months, did you worry whether your food would run out before you got money to buy more?: Never true Do you have trouble paying for medicines?: No Do you have trouble getting transportation to medical appointments?: No Do you have trouble paying your heating and electricity bill?: No Do you have trouble taking care of your child, family member or friend?: No Do you have trouble with day-to-day activities such as bathing, preparing meals, shopping, managing finances, etc.?: No Are you currently unemployed and looking for a job?: Yes Are you interested in more education?: Yes THRIVE Score: 0 AUDIT C Alcohol Use Questionnaire (AUDIT-C) 1. How often do you have a drink containing alcohol?: Never 3. How often do you have six or more drinks on one occasion?: Never Total Score: 0 Score Reviewed/Action Taken: No JONATHAN-7 AMB Questionnaire JONATHAN-7 Date JONATHAN - 7 assessed: 12/01/23 Feeling nervous, anxious, or on edge: 1 = Several days Not being able to stop or control worryin = Not at all Worrying too much about different things: 1 = Several days Trouble relaxin = Several days Being so restless that it is hard to sit still: 1 = Several days Becoming easily annoyed or irritable: 1 = Several days Feeling afraid as if something awful might happen: 0 = Not at all Total JONATHAN-7 score (0-4 normal; 5-9 mild; 10-14 moderate; 15-21 severe): 5 Source: Developed by Drs. Josh Hightower, Monica Vickers, Neil Pierson and colleagues, with an educational anca from [employer]. JONATHAN-7 Assessment Billing JONATHAN-7 Assessment Tool: JONATHAN-7 Assessment 36710 Review of Systems Const Details: Constitutional : No Weight loss, No Fever, No Chills, No Fatigue, No Malaise ENT/Mouth : No sore throat, No Rhinorrhea Eyes: No Eye Pain, No Swelling, No Redness Cardiovascular : No Chest Pain, No SOB, No Dyspnea on Exertion, No Orthopnea, No Edema, No Palpitations Respiratory : No Cough, No Sputum, No Wheezing Gastrointestinal : No Nausea, No Vomiting, No Diarrhea, No Constipation, No abdominal Pain, No Hematochezia, No Melena Genitourinary : No Dysuria, No Urinary Frequency, No Hematuria, Musculoskeletal : No joint pain, No Myalgias, No Joint Swelling Skin : No Skin Lesions, No rash Neuro : No Weakness, No Numbness, No Dizziness, No Headache Psych : Admits little Anxiety/Panic, No Depression. Denies SI/HI. Heme/Lymph: No Bruising, No Bleeding,No Lymphadenopathy Endocrine : No Polyuria, No Polydipsia All other systems reviewed and are negative Physical exam (Primary Care) Vital Signs: Last Vital Signs Pulse 82 12/01/23 09:11 BP 120/80 12/01/23 09:11 Pulse Ox 98 12/01/23 09:11 Oxygen Delivery Method Room Air 12/01/23 09:11 BMI result Body Mass Index 33.0 Tobacco/Smoking Status: Tobacco use Status Tobacco use date assessed 12/01/23 12/01/23 09:16 Patient Tobacco Use Status Former Tobacco user 12/01/23 09:16 Tobacco use type Cigarette 12/01/23 09:16 e-Cigarette/Vaping Use Never Used 12/01/23 09:16 Depression Screening Interpretation: Negative Const Other: Appearance: Alert.? Oriented X3.? No acute distress.? Head: Normocephalic, atraumatic. Neck: Normal inspection.? Neck supple.? CVS: Normal heart rate and rhythm.? Pulses normal.? Respiratory: No respiratory distress.? Breath sounds normal.? Neuro: Oriented X 3.? No motor deficit.? No sensory deficit. CN 2-12 intact Assessment and Plan Assessment & Plan (1) Anxiety: Comment: Patient is currently seeing a therapist and states that her anxiety is better and feels under control. Would not like medication intervention at this time. Code(s): F41.9 - Anxiety disorder, unspecified Plan Patient will follow-up with physical exam in 3-4 months Orders: Orders Lipid Panel Today Z13.220 - Encounter for screening for lipoid disorders Vitamin B6 Today Z13.21 - Encounter for screening for nutritional disorder TSH reflex Free T4 Today Z13.29 - Encounter for screening for other suspected endocrine disorder Complete Blood Count Auto Diff Today Z13.0 - Encounter for screening for diseases of the blood and blood-forming organs and certain disorders involving the immune mechanism Comprehensive Met. Panel Today Z91.89 - Other specified personal risk factors, not elsewhere classified Vitamin D 25-OH (D2 and D3) Today Z13.21 - Encounter for screening for nutritional disorder Vitamin B12 Today Z13.21 - Encounter for screening for nutritional disorder UA CC w/rflx Micro + Cult Today Z13.89 - Encounter for screening for other disorder Coding Level of Care Code Est Pt Level 3 (59735) Diagnoses Anxiety F41.9 Additional Codes JONATHAN-7 Assessment Billing - JONATHAN-7 Assessment Tool: JONATHAN-7 Assessment 68507 ([id number]) Time Spent (min) 30
[2023-12-01 09:11] VITALS: BP 120/80; PULSE 82; O2SAT 98; BMI 33.0
== END 2023-12-01 10:41 | disposition home or self-care (01) ==
PROVIDERS: PCP Internal Medicine; Visit Provider Nurse Practitioner Primary Care
DX: F41.9 Anxiety disorder, unspecified (principal)
CPT/HCPCS: 99213

== ENCOUNTER 2023-12-01 10:45 | Outpatient (REF) | payer OTHER, SELFPAY ==
[2023-12-01 13:36] LABS: MANUAL DIFF FLAG NO
[2023-12-01 13:48] LABS: Appearance Urine Clear; Color Urine Dark Yellow; Glucose Urine UA Negative (Negative); Leukocyte Esterase Urine Negative (Negative); Nitrite Urine Negative (Negative); Specific Gravity - Urine >= 1.030 (1.005-1.025); Urine Blood Negative (Negative); Urine Ketones Trace mg/dL (Negative); Urine Protein Negative (Neg-Trace)
[2023-12-01 13:53] LABS: Basophils Absolute Auto 0.1 X10*3/uL (0.0-0.2); Basophils Percent Auto 0.7 % (0-2); Eosinophils Absolute Auto 0.1 X10*3/uL (0.0-0.4); Hematocrit 38.6 % (37.0-47.0); Hemoglobin 12.2 g/dl (12.0-16.0); Imm Gran Abs Auto 0.03 X10*3/uL (0.00-0.03); Imm Gran Pct Auto 0.4 % (0.0-0.4); Lymphocytes Absolute Auto 1.8 X10*3/uL (1.2-4.9); Lymphocytes Percent Auto 25.6 % (20-40); Mean Corpuscular HGB Conc 31.6 g/dl (31.0-35.0); Mean Corpuscular Hemoglobin 27.9 pg (27.0-33.0); Mean Corpuscular Volume 88.3 fL (80.0-98.0); Mean Platelet Volume 11.8 fL (9.4-12.3); Monocytes Absolute Auto 0.4 X10*3/uL (0.1-1.2); Monocytes Percent Auto 5.3 % (2-11); Neutrophils Absolute Auto 4.8 x10*3/uL (2.0-8.3); Platelet Count 327 X10*3/uL (160-400); Red Blood Count 4.37 X10*6/uL (4.20-5.50); Red Cell Distribution Width 14.5 % (11.0-16.0); White Blood Count 7.2 X10*3/uL (4.8-10.8)
[2023-12-01 14:22] LABS: Alanine Aminotransferase 12 U/L (0-31); Albumin Level 4.2 g/dL (3.5-5.0); Alkaline Phosphatase 65 U/L (39-117); Anion Gap 10 (12-20); Aspartate Amino Transferase 14 U/L (5-31); Bilirubin Total 0.5 mg/dL (0.0-1.0); Blood Urea Nitrogen 12 mg/dL (9-16); Calcium 9.5 mg/dL (8.4-10.2); Carbon Dioxide 26 mmol/L (22-29); Chloride 107 mmol/L (96-108); Cholesterol 153 mg/dL (<200); Estimated Glomerular Filt Rate > 60; Glucose Random 81 mg/dL (60-115); HDL Cholesterol 40 mg/dL (>40); LDL Cholesterol Calculated 97 mg/dL (<100); Potassium 3.6 mmol/L (3.3-5.1); Sodium 139 mmol/L (135-145); Total Protein 7.2 g/dL (6.5-8.0); Triglycerides 83 mg/dL (<150)
[2023-12-01 14:26] LABS: TSH reflex Free T4 1.81 uIU/mL (0.32-4.0)
[2023-12-01 15:41] LABS: Vitamin B12 581 pg/mL (200-900)
[2023-12-05 17:03] LABS: Vitamin D 25-OH, D2 <4 ng/mL; Vitamin D 25-OH, D3 16 ng/mL; Vitamin D 25-OH, Total 16 ng/mL (30-100)
[2023-12-06 16:58] LABS: Vitamin B6 20.2 ng/mL (2.1-21.7)
== END 2023-12-01 10:46 | disposition home or self-care (01) ==
LOC: HO.HMGCLDS 10:45
PROVIDERS: PCP Nurse Practitioner Primary Care; Visit Provider Nurse Practitioner Primary Care
DX: Z13.220 Encounter for screening for lipoid disorders (principal); Z13.21 Encounter for screening for nutritional disorder; Z13.29 Encounter for screening for other suspected endocrine disorder; Z13.89 Encounter for screening for other disorder; Z13.0 Encounter for screening for diseases of the blood and blood-forming organs and certain disorders involving the immune mechanism; Z91.89 Other specified personal risk factors, not elsewhere classified
CPT/HCPCS: 36415; 80053; 80061; 81003; 82306; 82607; 84207; 84443; 85025

== ENCOUNTER 2023-12-14 13:10 | Outpatient (AMB) | payer OTHER, SELFPAY ==
--- NOTE | 2023-12-14 13:16 | MHC.OFFVIS ---
Intake Vital Signs 12/14/23 13:17 Height 5 ft 4 in Weight 192 lb BMI 33.0 BP 110/64 Intake Visit Reasons: test Intake Note: took 3 hcg test at home and they all have a very faint line [employer] Required: Yes [employer] Language: Portuguese Allergies meperidine [From DEMEROL] Allergy (Unknown, Verified 12/14/23 13:19) SWELLING, ITCHY Medication List - Last Reconciled 12/14/23 by Judi Yanez CNM multivitamin 1 tab PO DAILY Is last menstrual period known: Yes Last menstrual period: 11/17/23 Post menopausal: No HPI test HPI Details Patient is here for a test visit her last menstrual period was November 17 according to 1 malou she was supposed to get her. In the last 3 days and in according to another malou she will not be getting it for another 7 days she does not really feel like she is she had faint positive tests at home but the test here is negative she says she has been checking her calendar and she always gets her period Around the of the . She also tells me that she accepted control pills at the last visit but she has not taken them because she wants to get . I told her that that was fine and that was her decision she is trying to continue it weight loss and she actually looks good and feels good and I congratulated her on that. I reviewed with her again that the way to know how long a cycle is due to actually count from the beginning of 1 period to the beginning of the next 1 and she says she has records for a year at home at least and I told her to sit down with her calendar and actually count the number of days in each cycle and that that was the way to find out how long each cycle was especially if different apps are giving her different information it sounds like something is not correct in what is being input to them. I did offer her a serum test during this visit but she declined it saying she would weight because she does not really thinks she is yet. PFSH Medical History Anxiety Depressed Surgical History History of loop electrical excision procedure (LEEP) Hx of cholecystectomy Family History Mother HTN (hypertension) Diabetes Father HTN (hypertension) Social History Housing: Apartment Alcohol intake: never Patient Tobacco Use Status: Former Tobacco user Tobacco use type: Cigarette e-Cigarette/Vaping Use: Never Used service: No Current occupational status: unemployed Current occupational exposures/hazards: No Gender identity: Female Cognitive needs: No Hearing needs: No Vision needs: No Female Reproductive History Menstrual Age of Menarche: 9 Date of last menstrual period: 11/17/23 control method: none Total pregnancies: 2 Full term: 2 Number of Living Children: 3 Multiple births: 1 Date of last pap smear: 11/04/23 (negative) Physical Exam Vital Signs: Last Vital Signs BP 110/64 12/14/23 13:17 BMI result Body Mass Index 33.0 Assessment & Plan Assessment & Plan (1) Polycystic bilateral ovaries: Code(s): E28.2 - Polycystic ovarian syndrome (2) Patient desires : Code(s): Z31.9 - Encounter for procreative management, unspecified Plan Patient is here for a test visit her last menstrual period was November 17 according to 1 malou she was supposed to get her. In the last 3 days and in according to another malou she will not be getting it for another 7 days she does not really feel like she is she had faint positive tests at home but the test here is negative she says she has been checking her calendar and she always gets her period Around the of the . She also tells me that she accepted control pills at the last visit but she has not taken them because she wants to get . I told her that that was fine and that was her decision she is trying to continue it weight loss and she actually looks good and feels good and I congratulated her on that. I reviewed with her again that the way to know how long a cycle is due to actually count from the beginning of 1 period to the beginning of the next 1 and she says she has records for a year at home at least and I told her to sit down with her calendar and actually count the number of days in each cycle and that that was the way to find out how long each cycle was especially if different apps are giving her different information it sounds like something is not correct in what is being input to them. I did offer her a serum test during this visit but she declined it saying she would weight because she does not really thinks she is yet. Coding Level of Care Code Est Pt Level 3 (99680) Diagnoses Polycystic bilateral ovaries E28.2 Patient desires Z31.9
[2023-12-14 13:17] VITALS: BP 110/64; BMI 33.0
== END 2023-12-14 14:01 | disposition home or self-care (01) ==
LOC: HO.HWSM 13:10
PROVIDERS: PCP Nurse Practitioner Primary Care; Visit Provider Advanced Practice Midwife
DX: E28.2 Polycystic ovarian syndrome (principal); Z31.9 Encounter for procreative management, unspecified
CPT/HCPCS: 99213

== ENCOUNTER → 2023-12-14 13:10 | Outpatient (BNVA) | payer OTHER, SELFPAY | PROVIDERS: PCP Nurse Practitioner Primary Care; Visit Provider Advanced Practice Midwife | DX: E28.2 Polycystic ovarian syndrome (principal); Z31.9 Encounter for procreative management, unspecified | CPT/HCPCS: 99212 ==

== ENCOUNTER 2024-02-25 11:11 | Outpatient (AMB) | payer OTHER, SELFPAY ==
[2024-02-25 11:12] VITALS: BP 94/60; PULSE 82; O2SAT 97; BMI 34.0
--- NOTE | 2024-02-25 11:12 | MHC.PC.OV ---
Vital Signs 02/25/24 11:12 Height 5 ft 4 in Weight 198 lb BMI 34.0 BP 94/60 Blood Pressure Location Lt brachial Position Sitting Pulse 82 Pulse Source Pulse Oximeter Pulse Oximetry (%) 97 Oxygen Delivery Method Room Air Intake Visit Reasons: follow up resched from 02/20 Intake Note: Pt is here today for her f/u Allergies meperidine [From DEMEROL] Allergy (Unknown, Verified 02/25/24 11:26) SWELLING, ITCHY Medication List - Last Reconciled 02/25/24 by SHAILESH Hensley multivitamin 1 tab PO DAILY Tobacco use date assessed: 02/25/24 Dental Screening Dental Screen Date: 02/25/24 Did you have a dental visit in the last 12 months?: Yes Did you have a dental problem in the last 6 months where you did not have access to dental care?: No Was dental information given to patient?: Patient has dentist HPI HPI Comments History of Present Illness Details Patient is a 33-year-old female in today for a sick visit. Reports lower back pain x3 days. Denies any trauma to the area. Denies any tingling or numbness. Full ROM. Has not utilized and medications for relief. She would also like a referral to the weight loss clinic. She states she has been trying to imrove diet and exercise but has gained about 8 lbs since her last visit. [facility] Medical History Anxiety Depressed Surgical History History of loop electrical excision procedure (LEEP) Hx of cholecystectomy Family History Mother HTN (hypertension) Diabetes Father HTN (hypertension) Social History Housing: Apartment Alcohol intake: never Patient Tobacco Use Status: Current someday Tobacco user Tobacco use type: Cigarette e-Cigarette/Vaping Use: Never Used service: No Current occupational status: unemployed Current occupational exposures/hazards: No Gender identity: Female Cognitive needs: No Hearing needs: No Vision needs: No Female Reproductive History Menstrual Age of Menarche: 9 Questionnaire Thrive Questionnaire Date Thrive assessed: 12/01/23 JONATHAN-7 AMB Questionnaire JONATHAN-7 Date JONATHAN - 7 assessed: 12/01/23 Source: Developed by Drs. Josh Hightower, Monica Vickers, Neil Pierson and colleagues, with an educational anca from [employer]. Review of Systems Const All systems reviewed & are unremarkable except as noted in HPI and below Physical exam (Primary Care) Vital Signs: Last Vital Signs Pulse 82 02/25/24 11:12 BP 94/60 02/25/24 11:12 Pulse Ox 97 02/25/24 11:12 Oxygen Delivery Method Room Air 02/25/24 11:12 Care Plan Goal for BP management: Patient will take blood pressure measurements at home BMI result Body Mass Index 34.0 Tobacco/Smoking Status: Tobacco use Status Tobacco use date assessed 12/01/23 02/25/24 11:13 Patient Tobacco Use Status Former Tobacco user 02/25/24 11:13 Tobacco use type Cigarette 02/25/24 11:13 e-Cigarette/Vaping Use Never Used 02/25/24 11:13 Thrive Assessment: Date of Thrive Assessment Date Thrive assessed 12/01/23 02/25/24 11:13 Const Other: Appearance: Alert.? Oriented X3.? No acute distress.? Head: Normocephalic Respiratory: No respiratory distress.? Abdomen: Soft and nontender.? Skin: Skin warm and dry.? Normal skin color.? Normal skin turgor.? Back: No midline tenderness, no C-spine tenderness, Limited range of motion to flexion and extension, no CVA tenderness bilaterally. Neuro: Oriented X 3.? No motor deficit.? No sensory deficit. Results Reviewed Results Reviewed: Sodium 139 135-145 mmol/L Potassium 3.6 3.3-5.1 mmol/L CL 107 96-108 mmol/L CO2 26 22-29 mmol/L Gap 10 L 12-20 BUN 12 9-16 mg/dL Creat 0.63 0.5-1.4 mg/dL EGFR > 60 NOTE: For -Lao individuals, multiply the result by 1.210. Chronic Kidney Disease: Estimated GFR < 60 mL/min/1.73m2 Severe Kidney Disease: Estimated GFR < 15 mL/min/1.73m2 Glucose, Random 81 60-115 mg/dL CA 9.5 8.4-10.2 mg/dL Total Bili 0.5 0.0-1.0 mg/dL AST (GOT) 14 5-31 U/L ALT (GPT) 12 0-31 U/L Protein, Total 7.2 6.5-8.0 g/dL Alb 4.2 3.5-5.0 g/dL Triglyceride 83 <150 mg/dL Desirable Triglyceride: less than 150 mg/dL Borderline High Triglyceride 150-199 mg/dL High Triglyceride: 200-499 mg/dL Very High Triglyceride: greater than or equal to 5OO mg/dL Cholesterol 153 <200 mg/dL Desirable Cholesterol: less than 200 mg/dL Borderline High Cholesterol: 200-239 mg/dL High Cholesterol: greater than 239 mg/dL LDL Calculated 97 <100 mg/dL Desirable LDL: less than 100 mg/dL Near Optimal/Above Optimal LDL: 110-129 mg/dL Borderline High LDL: 130-159 mg/dL High LDL: 160-189 mg/dL Very High LDL: greater than or equal to 190 mg/dL HDL 40 L >40 mg/dL Desirable HDL: greater than 40 mg/dL Note: This HDL assay may give artificially low results in patients with liver disease. Alk Phos 65 39-117 U/L TSH 1.81 0.32-4.0 uIU/mL Assessment and Plan Assessment & Plan (1) Lower back pain: Comment: Will obtain X-ray. will give cyclobenzaprine. Pt can utilize Tylenol and Ibuprofen. Code(s): M54.50 - Low back pain, unspecified Qualifiers: Back pain laterality: bilateral Chronicity: acute Sciatica presence: without sciatica Qualified Code(s): M54.50 - Low back pain, unspecified (2) Obesity (BMI 30.0-34.9): Comment: Affecting ability to get . Patient has utilized improved diet and exercise with no effect. Will refer to weight loss clinic. Code(s): E66.9 - Obesity, unspecified (3) Migraines: Comment: Utilizes Excedrin PRN with moderate effect. Patient have patient start 400 mg p.o. daily of magnesium Code(s): G43.909 - Migraine, unspecified, not intractable, without status migrainosus Qualifiers: Intractability: not intractable Migraine type: unspecified Status migrainosus presence: without status migrainosus Qualified Code(s): G43.909 - Migraine, unspecified, not intractable, without status migrainosus Plan: Will follow-up in 4 weeks. Orders: Orders XR lumbar spine 2-3V Today M54.50 - Low back pain, unspecified Referrals Bariatric Surgery Referral E66.9 - Obesity, unspecified Medications: New cyclobenzaprine 5 mg PO BEDTIME PRN 10 tabs 0RF muscle spasm magnesium oxide 400 mg PO DAILY 30 caps 0RF Coding Level of Care Code Est Pt Level 3 (72153) Diagnoses Acute bilateral low back pain without sciatica M54.50 Back pain laterality: bilateral Chronicity: acute Sciatica presence: without sciatica Obesity (BMI 30.0-34.9) E66.9 Migraine without status migrainosus, not intractable, unspecified migraine type G43.909 Intractability: not intractable Migraine type: unspecified Status migrainosus presence: without status migrainosus Time Spent (min) 28
== END 2024-02-25 11:44 | disposition home or self-care (01) ==
PROVIDERS: PCP Nurse Practitioner Primary Care; Visit Provider Nurse Practitioner Primary Care
DX: M54.50 Low back pain, unspecified (principal); E66.9 Obesity, unspecified; G43.909 Migraine, unspecified, not intractable, without status migrainosus; Z68.30 Body mass index [BMI] 30.0-30.9, adult
CPT/HCPCS: 99213

== ENCOUNTER 2024-02-25 11:47 | Outpatient (REF) | payer OTHER, SELFPAY ==
--- NOTE | ~2024-02-25 | XR_ITS ---
EXAMINATION: XR LUMBOSACRAL SPINE CLINICAL INFORMATION: COMPARISON: None available. TECHNIQUE: Three views of the lumbosacral spine. FINDINGS: Surgical clips right upper quadrant. Mild levoscoliosis of the lumbar spine. Facet arthritis in the lower lumbar spine. Degenerative changes in the bilateral sacroiliac joints. Mild multilevel lumbar spondylosis. Limited visualization of the L5-S1 due to overlying bony structures. XR/XR lumbar spine 2-3V IMPRESSION: Mild multilevel lumbar spondylosis.
== END 2024-02-25 11:48 | disposition home or self-care (01) ==
LOC: HO.HMGCX 11:47
PROVIDERS: PCP Nurse Practitioner Primary Care; Visit Provider Nurse Practitioner Primary Care
DX: M54.50 Low back pain, unspecified (principal)
CPT/HCPCS: 72100

== ENCOUNTER 2024-03-29 13:07 | Outpatient (AMB) | payer OTHER, SELFPAY ==
--- NOTE | 2024-03-29 13:11 | MHC.PC.OV ---
Vital Signs 03/29/24 13:13 Height 5 ft 4 in Weight 186 lb BMI 31.9 BP 118/80 Blood Pressure Location Lt brachial Position Sitting Pulse 91 Pulse Source Pulse Oximeter Pulse Oximetry (%) 97 Oxygen Delivery Method Room Air Intake Visit Reasons: 5WK F/U per JL Intake Note: pt is here for 5 wk f/u lower back pain and anxiety Allergies meperidine [From DEMEROL] Allergy (Unknown, Verified 03/29/24 13:34) SWELLING, ITCHY Medication List - Last Reconciled 03/29/24 by SHAILESH Hensley cyclobenzaprine 5 mg PO BEDTIME PRN magnesium oxide 400 mg PO DAILY multivitamin 1 tab PO DAILY Tobacco use date assessed: 03/29/24 Dental Screening Dental Screen Date: 02/25/24 HPI HPI Comments History of Present Illness Details Patient is a 33-year-old female in today for follow-up for lower back pain. Patient had recent x-rays of the lumbar region which demonstrated mild spondylosis. Patient was given referral to physical therapy which she has not yet started. Patient utilizes Tylenol with mild effect. Will give meloxicam to be taken as prescribed. Patient also needs to establish therapy for anxiety. She denies SI/HI. She does have an appointment in 1 day with [facility] for this. Is denying medication this time. Patient does have new complaint of intermittent dizziness. Her blood pressure is normal today. States sometimes this happens whether she is sitting or standing. She denies palpitations, blood in her stools, chest pain, numbness, headache, blurry vision, or shortness of breath. She is positive for Bushnell-Hallpike maneuver in the office today. Will start on meclizine 25 mg p.o. p.r.n.. Will refer to physical therapy if no improvement. Will also draw labs including CMP, CBC, TSH, vitamin-D. [facility] Medical History Anxiety Depressed Surgical History History of loop electrical excision procedure (LEEP) Hx of cholecystectomy Family History Mother HTN (hypertension) Diabetes Father HTN (hypertension) Social History Housing: Apartment Alcohol intake: never Patient Tobacco Use Status: Current someday Tobacco user Tobacco use type: Cigarette e-Cigarette/Vaping Use: Never Used service: No Current occupational status: unemployed Current occupational exposures/hazards: No Gender identity: Female Cognitive needs: No Hearing needs: No Vision needs: No Female Reproductive History Menstrual Age of Menarche: 9 Questionnaire Thrive Questionnaire Date Thrive assessed: 12/01/23 AUDIT C Alcohol Use Questionnaire (AUDIT-C) 1. How often do you have a drink containing alcohol?: Never 3. How often do you have six or more drinks on one occasion?: Never Total Score: 0 JONATHAN-7 AMB Questionnaire JONATHAN-7 Date JONATHAN - 7 assessed: 12/01/23 Source: Developed by Drs. Josh Hightower, Monica Vickers, Neil Pierson and colleagues, with an educational anca from [employer]. Review of Systems Const All systems reviewed & are unremarkable except as noted in HPI and below Denies chills, Denies fever(s), Denies frequent falls, Denies headache(s) and Denies weakness Eyes Denies blurry vision ENT Denies headache(s) Card Denies chest pain, Denies syncope and Denies dyspnea Resp Denies dyspnea GI Denies diarrhea, Denies nausea and Denies vomiting Musc Denies abnormal gait, Reports back pain and Denies numbness Neuro Denies abnormal gait, Denies confusion, Denies syncope, Denies frequent falls, Denies headache(s), Denies numbness, Denies Sensory deficit (Neuro) and Denies weakness Psych Reports anxiety, Denies confusion, Denies homicidal ideation and Denies suicidal ideation Physical exam (Primary Care) Vital Signs: Last Vital Signs Pulse 91 03/29/24 13:13 BP 118/80 03/29/24 13:13 Pulse Ox 97 03/29/24 13:13 Oxygen Delivery Method Room Air 03/29/24 13:13 Care Plan Goal for BP management: Blood pressures control. BMI result Body Mass Index 31.9 Tobacco/Smoking Status: Tobacco use Status Tobacco use date assessed 03/29/24 03/29/24 13:18 Patient Tobacco Use Status Current someday Tobacco 03/29/24 13:12 Tobacco use type Cigarette 03/29/24 13:12 e-Cigarette/Vaping Use Never Used 03/29/24 13:12 Thrive Assessment: Date of Thrive Assessment Date Thrive assessed 12/01/23 03/29/24 13:12 Const Other: Appearance: Alert.? Oriented X3.? No acute distress.? Head: Normocephalic, atraumatic, no step-offs or deformities Eyes: Pupils equal, round and reactive to light.?Sclera white. ENT: Pharynx normal.?TM intact and pearly lemus. Neck: Normal inspection.? Neck supple.?Full ROM. CVS: Normal heart rate and rhythm.? Pulses normal.? Respiratory: No respiratory distress.? Breath sounds normal.? Extremities: No lower extremity edema.? No calf ttp. 5/5 strength to bilateral upper and lower extremities Back: No midline tenderness, no C-spine tenderness, limited range of motion to flexion and extension, no CVA tenderness bilaterally Neuro: Oriented X 3.? No motor deficit.? No sensory deficit. CN 2-12 intact Positive Tammy-Hallpike maneuver in office. General: No confusion Orientation/consciousness: patient oriented x3 and No confusion Eyes Pupils: Equal, round and reactive pupils present Neuro General: patient oriented x3, gait normal, no focal motor deficits, deep tendon reflexes 2+ bilaterally and No confusion Cranial nerves: Yes CN's II-XII intact bilaterally, Yes Equal, round and reactive pupils present and Yes Bilaterally intact EOM present Cognition (Neuro): normal cognition Gait exam (Neuro): Normal gait present Motor exam (neuro): 5/5 motor strength present throughout Sensory Exam: No Sensory deficit (Neuro) Romberg Test: Negative Assessment and Plan Assessment & Plan (1) Lower back pain: Comment: Patient starting Physical therapy. Will give meloxicam to be taken as directed. Code(s): M54.50 - Low back pain, unspecified Qualifiers: Chronicity: acute Back pain laterality: bilateral Sciatica presence: without sciatica Qualified Code(s): M54.50 - Low back pain, unspecified (2) Anxiety: Comment: Patient is declining medication at this time. Denies SI/HI. Patient is starting therapy in 1 day. Code(s): F41.9 - Anxiety disorder, unspecified (3) Vertigo: Comment: Will order meclizine 25 mg p.r.n.. Will give referral physical therapy if no improvement. Patient has been educated to stay hydrated. Has been educated on signs of worsening symptoms when to return to the office or when to present to the Code(s): R42 - Dizziness and giddiness Plan: Draw labs. Plan Will follow-up with lab results Orders: Orders Vitamin D 25-OH (D2 and D3) 03/29/24 Z13.21 - Encounter for screening for nutritional disorder TSH reflex Free T4 03/29/24 Z13.29 - Encounter for screening for other suspected endocrine disorder Complete Blood Count Auto Diff 03/29/24 Z13.0 - Encounter for screening for diseases of the blood and blood-forming organs and certain disorders involving the immune mechanism Comprehensive Met. Panel 03/29/24 Z91.89 - Other specified personal risk factors, not elsewhere classified Medications: New meloxicam 15 mg PO DAILY 20 tabs 0RF meclizine 25 mg PO DAILY PRN 20 tabs 0RF motion sickness Coding Level of Care Code Est Pt Level 3 (72123) Diagnoses Acute bilateral low back pain without sciatica M54.50 Chronicity: acute Back pain laterality: bilateral Sciatica presence: without sciatica Anxiety F41.9 Vertigo R42 Time Spent (min) 23
[2024-03-29 13:13] VITALS: BP 118/80; PULSE 91; O2SAT 97; BMI 31.9
== END 2024-03-29 14:40 | disposition home or self-care (01) ==
PROVIDERS: PCP Nurse Practitioner Primary Care; Visit Provider Nurse Practitioner Primary Care
DX: M54.50 Low back pain, unspecified (principal); F41.9 Anxiety disorder, unspecified; R42 Dizziness and giddiness
CPT/HCPCS: 99213

== ENCOUNTER 2024-05-10 13:37 | Outpatient (AMB) | payer OTHER, SELFPAY ==
[2024-05-10 13:48] VITALS: BP 112/68; BMI 35.5
--- NOTE | 2024-05-10 13:48 | A.OFFVIS_ITS ---
Vital Signs 05/10/24 13:48 Height 5 ft 4 in Weight 207 lb BMI 35.5 BP 112/68 Intake Visit Reasons: Trying to conceive Information Interpreted: clinical only Dust Box Tender: Dust Box Tender Present Allergies meperidine [From DEMEROL] Allergy (Unknown, Verified 05/10/24 13:49) SWELLING, ITCHY Medication List - Last Reconciled 05/10/24 by Judi Yanez CNM magnesium oxide 400 mg PO DAILY meclizine 25 mg PO DAILY PRN meloxicam 15 mg PO DAILY Is last menstrual period known: Yes Last menstrual period: 04/18/24 Do you need a note to return to daycare/school/sports/work: No HPI HPI Trying to conceive: Details: Patient is here to again discussed that she is trying to get . Full instruction about keeping track menses and symptoms and signs and evidence of ovulation and keeping records of when she has sex occurred during previous visits she was trying very hard to lose weight and she did lose some weight but she gained some back again she has changed her primary care provider but she has not seen her new 1 yet. She believes that she had blood work done to check for diabetes and everything about 5 months ago and it was all negative her last child was born 5 years ago by because of issues with the heartbeat during labor she wants to have a baby and has been trying for a while. [facility] Medical History Anxiety Depressed Surgical History History of loop electrical excision procedure (LEEP) Hx of cholecystectomy Family History Mother HTN (hypertension) Diabetes Father HTN (hypertension) Social History Housing: Apartment Alcohol intake: never Patient Tobacco Use Status: Current someday Tobacco user Tobacco use type: Cigarette e-Cigarette/Vaping Use: Never Used service: No Current occupational status: unemployed Current occupational exposures/hazards: No Gender identity: Female Cognitive needs: No Hearing needs: No Vision needs: No Female Reproductive History Menstrual Age of Menarche: 9 Duration of menses: 3-5 days Date of last menstrual period: 04/18/24 control method: none Total pregnancies: 2 Full term: 3 Date of last pap smear: 11/04/23 (neg,[id number]) History of abnormal pap smear: Yes (Hx of LEEP) Physical Exam Vital Signs: Last Vital Signs BP 112/68 05/10/24 13:48 BMI result Body Mass Index 35.5 Results Reviewed Results Reviewed: Name: Deanna Abraham Age/Sex: 33/F Attending: Judi Yanez CNM : 1990 Submitted by: Judi Yanez CNM Copies to: Shantelle Johnson MD MR #: [id number] Status: DEP REF Collected: 11/02/23 Location: .LAB Received: 11/04/23 Interpretation Satisfactory for evaluation. Negative for intraepithelial lesion or malignancy. HPV mRNA E6/E7: NOT DETECTED This assay detects E6/E7 viral messenger RNA (mRNA) from 14 high-risk HPV types (16, 18, 31, 33, 35, 39, 45, 51, 52, 56, 58, 59, 66, 68) HPV testing performed by [facility], [place], [place]. See reference laboratory portion of the EMR for entire report. Clinical Information LMP: 10/08/2023 Previous PAP test: 2020, neg, abnormal Material Received ThinPrep-Cervical Copies To Shantelle Johnson MD [address] [place] [address] Judi Yanez CNM [address] [place] [address] Dr. Bogdan Gray [place] [id number] Electronically Signed By: KATERINA Bishop (ASCP) 11/17/23 0654 The Pap Test is a screening procedure with the inherent possibility of both false negative and false positive results. Results should be interpreted in the context of historic and current clinical findings. Reliability of the Pap Test is enhanced by performing the test on a regular repetitive basis. Patient: Deanna Abraham Age/[facility]: 33[id number]#: [id number] Page 1 of 1 Assessment & Plan Assessment & Plan (1) Infertility counseling: Code(s): Z31.69 - Encounter for other general counseling and advice on procreation Category: Medical Plan Reviewed recent menses and per her recollection she has the dates memorize in her head 3 months and the week she believes she was ovulating and cites that she has been having regular intercourse during those times. I again reiterated that it is important to really keep working on the weight loss is that is important Since she is 33 years old and it gets harder with each passing month and year 2 get the sooner she is able to have a little help with this the better. I told her I would place a referral to [facility] for infertility services but I have no way of knowing how long that referral may take and whether not she will be seen any time soon I am recommending that she also follow-up with her primary care provider to work on the referral process as well. I found in the system that she had fasting labs ordered by her primary and I printed all of the orders for her and also printed the bariatric referral re that was in there and the referral to [facility] IVF is not loaded into the system but I told the patient that the name had possibly changed which the patient should call herself to try to nicole the referral a long. I recommend that she actually write down all of the dates of her period, ovulations, intercourse, And bring somebody with her who can speak Swazi. I wished her luck in her journey to get . 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 Orders: Referrals Infertility Reproductive Referral (female) Z31.69 - Encounter for other genera l counseling and advice on procreation Coding Level of Care Code Est Pt Level 3 (23995) Diagnoses Infertility counseling Z31.69
== END 2024-05-10 15:00 | disposition home or self-care (01) ==
LOC: HO.HWSM 13:37
PROVIDERS: PCP Nurse Practitioner Primary Care; Visit Provider Advanced Practice Midwife
DX: Z31.69 Encounter for other general counseling and advice on procreation (principal)
CPT/HCPCS: 99213

== ENCOUNTER → 2024-05-10 13:37 | Outpatient (BNVA) | payer OTHER, SELFPAY | PROVIDERS: PCP Nurse Practitioner Primary Care; Visit Provider Advanced Practice Midwife | DX: Z31.69 Encounter for other general counseling and advice on procreation (principal) | CPT/HCPCS: 99212 ==

== ENCOUNTER 2024-06-09 11:22 | Outpatient (REF) | payer OTHER, SELFPAY ==
[2024-06-09 13:13] LABS: MANUAL DIFF FLAG NO
[2024-06-09 13:31] LABS: Basophils Absolute Auto 0.1 X10*3/uL (0.0-0.2); Basophils Percent Auto 0.8 % (0-2); Eosinophils Absolute Auto 0.2 X10*3/uL (0.0-0.4); Eosinophils Percent Auto 2.9 % (0-4); Hematocrit 35.8 % (37.0-47.0); Hemoglobin 11.4 g/dl (12.0-16.0); Imm Gran Abs Auto 0.03 X10*3/uL (0.00-0.03); Imm Gran Pct Auto 0.4 % (0.0-0.4); Lymphocytes Percent Auto 25.6 % (20-40); Mean Corpuscular HGB Conc 31.8 g/dl (31.0-35.0); Mean Corpuscular Hemoglobin 28.3 pg (27.0-33.0); Mean Corpuscular Volume 88.8 fL (80.0-98.0); Mean Platelet Volume 10.9 fL (9.4-12.3); Monocytes Absolute Auto 0.5 X10*3/uL (0.1-1.2); Neutrophils Absolute Auto 5.1 x10*3/uL (2.0-8.3); Neutrophils Percent Auto 64.3 % (45-73); Platelet Count 341 X10*3/uL (160-400); Red Blood Count 4.03 X10*6/uL (4.20-5.50); Red Cell Distribution Width 13.1 % (11.0-16.0); White Blood Count 7.9 X10*3/uL (4.8-10.8)
[2024-06-09 14:32] LABS: Alanine Aminotransferase 17 U/L (0-31); Albumin Level 3.8 g/dL (3.5-5.0); Alkaline Phosphatase 66 U/L (39-117); Anion Gap 9 (12-20); Aspartate Amino Transferase 16 U/L (5-31); Bilirubin Total 0.2 mg/dL (0.0-1.0); Blood Urea Nitrogen 15 mg/dL (9-16); Carbon Dioxide 24 mmol/L (22-29); Chloride 109 mmol/L (96-108); Estimated Glomerular Filt Rate > 60; Glucose Random 87 mg/dL (60-115); Potassium 3.9 mmol/L (3.3-5.1); Sodium 138 mmol/L (135-145); Total Protein 6.5 g/dL (6.5-8.0)
[2024-06-09 14:33] LABS: TSH reflex Free T4 2.57 uIU/mL (0.32-4.0)
[2024-06-16 15:03] LABS: Vitamin D 25-OH, D2 <4 ng/mL; Vitamin D 25-OH, D3 11 ng/mL; Vitamin D 25-OH, Total 11 ng/mL (30-100)
== END 2024-06-09 11:23 | disposition home or self-care (01) ==
LOC: HO.HMGCLDS 11:22
PROVIDERS: PCP Internal Medicine; Visit Provider Nurse Practitioner Primary Care
DX: Z13.21 Encounter for screening for nutritional disorder (principal); Z13.29 Encounter for screening for other suspected endocrine disorder; Z13.0 Encounter for screening for diseases of the blood and blood-forming organs and certain disorders involving the immune mechanism; Z91.89 Other specified personal risk factors, not elsewhere classified
CPT/HCPCS: 36415; 80053; 82306; 84443; 85025

== ENCOUNTER 2024-07-05 20:57 | Emergency (ER) | payer OTHER, SELFPAY ==
[2024-07-05 21:04] VITALS: BP 149/85; BP 170/104; PULSE 86; PULSE 96; RESP 15; TEMP 37.1; O2SAT 97; O2SAT 98; BMI 33.3
[2024-07-05 21:19] VITALS: BP 149/85; PULSE 86; RESP 15; TEMP 37.1; O2SAT 98
--- NOTE | 2024-07-05 21:44 | ED.ANXIETY ---
HPI - Anxiety General Chief Complaint: Anxiety Stated Complaint: Anxiety/panic attack Time Seen by Provider: 07/05/24 21:03 Source: patient, EMS and old records reviewed Mode of arrival: EMS Limitations: no limitations History of Present Illness ED Provider: JO HURT narrative: 34 yo female with PMH of anemia, migraines, obesity here with severe anxiety and reports not sleeping or eating for 3 days. She states this is normal for her. Her uncle called due to panic attack but she denies this. She states she is fine now. Uncle told EMS her and her boyfriend broke up and it has been hard for her. Patient denies SI/HI. 05/03/24 negative 24 hour EEG at [facility] for her convulsions that she gets with her anxiety MD complaint: anxiety Onset (ago): day(s) (3) Symptoms: other Severity: severe Quality: intermittent Place: home History of similar episodes: Yes Provoking factors: emotional stress Relieving factors: nothing Exacerbating factors: nothing Associated symptoms: anorexia, nausea/vomiting and other (insomnia) Related Data Previous Rx's ?Medication ?Instructions ?Recorded magnesium oxide 400 mg PO DAILY #30 caps 02/25/24 meclizine 25 mg tablet 25 mg PO DAILY PRN motion sickness 03/29/24 #20 tabs meloxicam 15 mg tablet 15 mg PO DAILY #20 tabs 03/29/24 cholecalciferol (vitamin D3) 1,250 1,250 mcg PO QWEEK 3 months #13 06/16/24 mcg (50,000 unit) capsule caps ferrous fumarate 325 mg (106 mg 325 mg PO DAILY #90 tabs 06/16/24 iron) tablet Allergies Allergy/AdvReac Type Severity Reaction Status Date / Time meperidine [From DEMEROL] Allergy Unknown SWELLING, Verified 07/05/24 21:15 ITCHY Review of Systems Review of Systems: Constitutional : No Fever, No Chills, No Fatigue ENT/Mouth : No sore throat, No Rhinorrhea Eyes: No Eye Pain, No Swelling, No Redness Cardiovascular : No Chest Pain, No SOB, No Dyspnea on Exertion Respiratory : No Cough, No Sputum Gastrointestinal : pos Nausea, No Vomiting, No Diarrhea, No abdominal Pain Genitourinary : No Dysuria, No Urinary Frequency, No Hematuria, Musculoskeletal : No joint pain, No Myalgias, No Joint Swelling Skin : No Skin Lesions, No rash Neuro : No Weakness, No Numbness, No Dizziness, positive Headache Psych : pos Anxiety/Panic, No Depression All other systems reviewed and are negative [facility] Past Medical History Attestation statement: The following information was validated with the patient. Source: old records reviewed Medical History Vitamin D deficiency Anemia Anxiety Depressed Surgical History History of loop electrical excision procedure (LEEP) Hx of cholecystectomy Family History Family History Mother HTN (hypertension) Diabetes Father HTN (hypertension) Social History Social History Housing: Apartment Alcohol intake: never Patient Tobacco Use Status: Current someday Tobacco user Tobacco use type: Cigarette Smoked in Last 30 Days: No e-Cigarette/Vaping Use: Never Used Use of substances other than those prescribed or required for medical reasons: No Advance Directives: No Advance Directives Information Provided: No service: No Current occupational status: unemployed Current occupational exposures/hazards: No Gender identity: Female Cognitive needs: No Hearing needs: No Vision needs: No Physical Exam Vital Signs: Vital Signs: Last Vital Signs Temp 98.7 F 07/05/24 21:19 Pulse 86 07/05/24 21:19 Resp 15 07/05/24 21:19 BP 149/85 H 07/05/24 21:19 Pulse Ox 98 07/05/24 21:19 O2 Del Method Room Air 07/05/24 21:19 BMI result Body Mass Index 33.3 Appearance: Alert. Oriented X3. No acute distress. initially would not talk to me then came around and started to talk was eye fluttering on arrival but responded to painful stimuli Eyes: Pupils equal, round and reactive to light. ENT: Pharynx normal. Neck: Normal inspection. Neck supple. CVS: Normal heart rate and rhythm. Pulses normal. Respiratory: No respiratory distress. Breath sounds normal. Abdomen: Soft and nontender. Skin: Skin warm and dry. Normal skin color. Normal skin turgor. Extremities: No lower extremity edema. No calf ttp Neuro: Oriented X 3. No motor deficit. No sensory deficit. Medications Administered Discontinued Medications Generic Name Dose Route Start Last Admin Trade Name Lexi PRN Reason Stop Dose Admin Acetaminophen 975 mg 07/05/24 21:45 07/05/24 21:56 Acetaminophen 325 Mg Tablet PO 07/05/24 21:46 975 mg ONCE ONE Administration Ondansetron HCl 4 mg 07/05/24 21:45 07/05/24 21:56 Ondansetron Odt 4 Mg Tab.Rapdis TRANSLINGU 07/05/24 21:46 4 mg ONCE ONE Administration Medical Decision Making Medical Decision Making MDM Narrative: 34 yo female with PMH of anemia, migraines, obesity here with c/o 3 days of not eating or sleeping that then culminated in what uncle told EMS as a panic attack the patient is not very forthcoming about her anxiety or what led to it but she dnies SI/HI. At this time will need basic labs and will reassess. She currently declines medications and states she has a therapist. Differential Diagnosis Differential Diagnoses: The differential diagnosis associated with the presentation includes anxiety, panic attack, dehydration Admission/Observation Consideration of admission/observation: Escalation of care including admission/observation considered labs reassuring declined services can be DC home Lab Data [facility] Lab Attestation statement: I reviewed the patient's lab results. 07/05/24 22:01 07/05/24 22:01 Labs: Lab Results 07/05/24 Range/Units 22:01 WBC 12.5 H (4.8-10.8) X10*3/uL RBC 4.38 (4.20-5.50) X10*6/uL Hgb 12.5 (12.0-16.0) g/dl Hct 37.9 (37.0-47.0) % MCV 86.5 (80.0-98.0) fL MCH 28.5 (27.0-33.0) pg MCHC 33.0 (31.0-35.0) g/dl RDW 12.6 (11.0-16.0) % Plt Count 339 (160-400) X10*3/uL MPV 10.0 (9.4-12.3) fL Immature Gran % (Auto) 0.4 (0.0-0.4) % Neut % (Auto) 73.6 H (45-73) % Lymph % (Auto) 18.4 L (20-40) % [place] % (Auto) 6.0 (2-11) % Eos % (Auto) 1.0 (0-4) % Baso % (Auto) 0.6 (0-2) % Lymph # (Auto) 2.3 (1.2-4.9) X10*3/uL [place] # (Auto) 0.8 (0.1-1.2) X10*3/uL Eos # (Auto) 0.1 (0.0-0.4) X10*3/uL Baso # (Auto) 0.1 (0.0-0.2) X10*3/uL Abs Immat Gran (auto) 0.05 H (0.00-0.03) X10*3/uL Absolute Neuts (auto) 9.2 H (2.0-8.3) x10*3/uL Absolute Nucleated RBC 0.000 (0.0-0.012) X10*3/uL Nucleated RBC % (auto) 0.0 (0.0-0.2) /100WBC Sodium 140 (135-145) mmol/L Potassium 3.6 (3.3-5.1) mmol/L Chloride 109 H (96-108) mmol/L Carbon Dioxide 23 (22-29) mmol/L Anion Gap 12 (12-20) BUN 13 (9-16) mg/dL Creatinine 0.71 (0.5-1.4) mg/dL Estim Creat Clear Calc 126.1 Estimated GFR > 60 Random Glucose 92 (60-115) mg/dL Calcium 8.7 (8.4-10.2) mg/dL Magnesium 2.2 (1.6-2.6) mg/dL Total Bilirubin 0.4 (0.0-1.0) mg/dL Direct Bilirubin 0.2 (0.0-0.5) mg/dL AST 14 (5-31) U/L ALT 13 (0-31) U/L Alkaline Phosphatase 52 (39-117) U/L Total Protein 6.0 L (6.5-8.0) g/dL Albumin 3.6 (3.5-5.0) g/dL Beta HCG, Quant < 2 mIU/mL Independent Historian Clinical information obtained from an independent historian. History obtained from or confirmed by: EMS External Record Review External record reviewed: Outpatient record Prescription Management I considered prescription management with: Other Discharge Plan Discharge Clinical Impression: Acute anxiety Patient Disposition: Home, Self-Care Instructions: Anxiety (ED) Additional Instructions: return for any worsening symptoms or concerns follow up with your doctor and therapist labs are reassuring Prescriptions: No Action ferrous fumarate 325 mg (106 mg iron) tablet 325 mg PO DAILY Qty: 90 0RF cholecalciferol (vitamin D3) 1,250 mcg (50,000 unit) capsule 1,250 mcg PO QWEEK 90 Days Qty: 13 0RF magnesium oxide 400 mg magnesium capsule 400 mg PO DAILY Qty: 30 0RF meloxicam 15 mg tablet 15 mg PO DAILY Qty: 20 0RF meclizine 25 mg tablet 25 mg PO DAILY PRN (Reason: motion sickness) Qty: 20 0RF Print Language: Nepalese
[2024-07-05] MEDS: Acetaminophen 325 MG TABLET 975 MG PO (21:56)
[2024-07-05] MEDS: Ondansetron ODT 4 MG TAB.RAPDIS TRANSLINGU (21:56)
[2024-07-05 22:06] LABS: MANUAL DIFF FLAG NO
[2024-07-05 22:07] LABS: Basophils Absolute Auto 0.1 X10*3/uL (0.0-0.2); Basophils Percent Auto 0.6 % (0-2); Eosinophils Absolute Auto 0.1 X10*3/uL (0.0-0.4); Hematocrit 37.9 % (37.0-47.0); Hemoglobin 12.5 g/dl (12.0-16.0); Imm Gran Abs Auto 0.05 X10*3/uL (0.00-0.03); Imm Gran Pct Auto 0.4 % (0.0-0.4); Lymphocytes Absolute Auto 2.3 X10*3/uL (1.2-4.9); Lymphocytes Percent Auto 18.4 % (20-40); Mean Corpuscular Hemoglobin 28.5 pg (27.0-33.0); Mean Corpuscular Volume 86.5 fL (80.0-98.0); Monocytes Absolute Auto 0.8 X10*3/uL (0.1-1.2); Neutrophils Absolute Auto 9.2 x10*3/uL (2.0-8.3); Neutrophils Percent Auto 73.6 % (45-73); Platelet Count 339 X10*3/uL (160-400); Red Blood Count 4.38 X10*6/uL (4.20-5.50); Red Cell Distribution Width 12.6 % (11.0-16.0); White Blood Count 12.5 X10*3/uL (4.8-10.8)
[2024-07-05 22:36] LABS: Alanine Aminotransferase 13 U/L (0-31); Albumin Level 3.6 g/dL (3.5-5.0); Alkaline Phosphatase 52 U/L (39-117); Anion Gap 12 (12-20); Aspartate Amino Transferase 14 U/L (5-31); Bilirubin Direct 0.2 mg/dL (0.0-0.5); Bilirubin Total 0.4 mg/dL (0.0-1.0); Blood Urea Nitrogen 13 mg/dL (9-16); Calcium 8.7 mg/dL (8.4-10.2); Carbon Dioxide 23 mmol/L (22-29); Chloride 109 mmol/L (96-108); Creatinine Clr Calc Pharmacy 126.1; Estimated Glomerular Filt Rate > 60; Glucose Random 92 mg/dL (60-115); HCG Quantitative < 2 mIU/mL; Magnesium 2.2 mg/dL (1.6-2.6); Potassium 3.6 mmol/L (3.3-5.1); Sodium 140 mmol/L (135-145)
[2024-07-05 22:55] VITALS: BP 149/85; PULSE 86; RESP 15; TEMP 37.1; O2SAT 98
== END 2024-07-05 23:18 | disposition home or self-care (01) ==
PROVIDERS: Emergency Provider Emergency Medicine; PCP Internal Medicine
DX: F41.9 Anxiety disorder, unspecified (principal); G47.00 Insomnia, unspecified; R11.0 Nausea; F17.210 Nicotine dependence, cigarettes, uncomplicated; Z79.899 Other long term (current) drug therapy
CPT/HCPCS: 36415; 80048; 80076; 83735; 84702; 85025; 99283; 99284

== ENCOUNTER 2024-07-21 22:23 | Emergency (ER) | payer OTHER, SELFPAY ==
[2024-07-21 22:26] VITALS: BP 110/63; PULSE 78; RESP 20; TEMP 36.3; O2SAT 99; BMI 35.4
[2024-07-21 22:46] LABS: Basophils Percent Auto 0.4 % (0-2); Eosinophils Absolute Auto 0.2 X10*3/uL (0.0-0.4); Eosinophils Percent Auto 1.6 % (0-4); Hematocrit 36.2 % (37.0-47.0); Imm Gran Abs Auto 0.01 X10*3/uL (0.00-0.03); Imm Gran Pct Auto 0.1 % (0.0-0.4); Lymphocytes Absolute Auto 2.7 X10*3/uL (1.2-4.9); Lymphocytes Percent Auto 29.3 % (20-40); MANUAL DIFF FLAG NO; Mean Corpuscular HGB Conc 33.1 g/dl (31.0-35.0); Mean Corpuscular Hemoglobin 28.4 pg (27.0-33.0); Mean Corpuscular Volume 85.6 fL (80.0-98.0); Mean Platelet Volume 10.2 fL (9.4-12.3); Monocytes Absolute Auto 0.5 X10*3/uL (0.1-1.2); Monocytes Percent Auto 5.4 % (2-11); Neutrophils Absolute Auto 5.8 x10*3/uL (2.0-8.3); Neutrophils Percent Auto 63.2 % (45-73); Platelet Count 370 X10*3/uL (160-400); Red Blood Count 4.23 X10*6/uL (4.20-5.50); Red Cell Distribution Width 12.8 % (11.0-16.0); White Blood Count 9.2 X10*3/uL (4.8-10.8)
[2024-07-21 23:02] LABS: Alanine Aminotransferase 18 U/L (0-31); Albumin Level 3.5 g/dL (3.5-5.0); Alkaline Phosphatase 43 U/L (39-117); Anion Gap 16 (12-20); Aspartate Amino Transferase 21 U/L (5-31); Bilirubin Total 0.2 mg/dL (0.0-1.0); Blood Urea Nitrogen 9 mg/dL (9-16); Calcium 8.2 mg/dL (8.4-10.2); Carbon Dioxide 19 mmol/L (22-29); Chloride 109 mmol/L (96-108); Creatinine Clr Calc Pharmacy 131.9; Estimated Glomerular Filt Rate > 60; Glucose Random 90 mg/dL (60-115); Potassium 3.4 mmol/L (3.3-5.1); Sodium 141 mmol/L (135-145); Total Protein 5.6 g/dL (6.5-8.0)
[2024-07-21] MEDS: Ketorolac Tromethamine 60 MG/2 ML VIAL IM (23:08)
[2024-07-21] MEDS: Ondansetron ODT 4 MG TAB.RAPDIS TRANSLINGU (23:08)
[2024-07-21 23:23] LABS: Influenza A PCR NEGATIVE (Negative); Influenza B PCR NEGATIVE (Negative); Resp Syncy Virus RNA Qual PCR NEGATIVE (Negative); SARS COV2 PCR INHOUSE NEGATIVE (Negative)
[2024-07-22] VITALS: BP 109/58; PULSE 85; RESP 16; TEMP 36.6; O2SAT 97
--- NOTE | 2024-07-22 00:09 | ED.GENADULT ---
HPI - General Adult General Chief complaint: General Medical Stated complaint: vomiting,headache Time Seen by Provider: 07/21/24 22:50 Source: patient Mode of arrival: ambulatory Limitations: no limitations History of Present Illness ED Provider: Dr. James HPI narrative: Patient is a 34yo female with a history of PCOS, and obesity who presents with sore throat, headache, myalgias, and vomiting and diarrhea. Patient states that she is unable to tolerate PO and is having diarrhea. Patients daughter had similar symptoms a few days ago. Related Data Previous Rx's ?Medication ?Instructions ?Recorded magnesium oxide 400 mg PO DAILY #30 caps 02/25/24 meclizine 25 mg tablet 25 mg PO DAILY PRN motion sickness 03/29/24 #20 tabs meloxicam 15 mg tablet 15 mg PO DAILY #20 tabs 03/29/24 cholecalciferol (vitamin D3) 1,250 1,250 mcg PO QWEEK 3 months #13 06/16/24 mcg (50,000 unit) capsule caps ferrous fumarate 325 mg (106 mg 325 mg PO DAILY #90 tabs 06/16/24 iron) tablet naproxen 500 mg tablet (Naprosyn) 500 mg PO BID #20 tabs 07/22/24 ondansetron 4 mg disintegrating 4 mg PO Q8H 4 days #12 tabs 07/22/24 tablet Allergies Allergy/AdvReac Type Severity Reaction Status Date / Time meperidine [From DEMEROL] Allergy Unknown SWELLING, Verified 07/21/24 22:29 ITCHY Review of Systems Review of Systems: Yes all other systems are reviewed and are negative Neurologic: Denies Sensory deficit (Neuro) PMFSH Past Medical History Medical History Vitamin D deficiency Anemia Anxiety Depressed Surgical History History of loop electrical excision procedure (LEEP) Hx of cholecystectomy Family History Family History Mother HTN (hypertension) Diabetes Father HTN (hypertension) Social History Social History Housing: Apartment Alcohol intake: never Patient Tobacco Use Status: Current someday Tobacco user Tobacco use type: Cigarette e-Cigarette/Vaping Use: Never Used Advance Directives: No Advance Directives Information Provided: No Do you have a plan to hurt others: No Plan service: No Current occupational status: unemployed Current occupational exposures/hazards: No Gender identity: Female Cognitive needs: No Hearing needs: No Vision needs: No Physical Exam ED Vital Signs: Vital Signs - 24 hr 07/21/24 22:26 07/22/24 00:00 Temperature 97.4 F 97.8 F Pulse Rate 78 85 Respiratory Rate 20 16 Blood Pressure 110/63 109/58 L Pulse Oximetry 99 97 Oxygen Delivery Method Room Air Room Air BMI result Body Mass Index 35.4 Const General: healthy appearing Nutritional Appearance: average body habitus Orientation/consciousness: oriented to person and patient oriented x3 Limitations: no limitations HENMT Head: Yes normal to inspection Ears: external ears normal General nose exam: Normal external nose present Mouth: Normal oral and palatal mucosa present and oropharynx normal Throat: Yes posterior oropharynx normal Eyes General: appearance normal, both eyes and all related structures Neck Neck: Yes normal visual inspection Chest Chest palpation & inspection: normal inspection of the chest Resp Auscultation: clear to auscultation bilaterally Cardio Jugular venous distension: no JVD Rate: regular rate Rhythm: regular rhythm Heart sounds: S1 normal heart sound present and S2 normal heart sound present GI Inspection: Yes normal to inspection Palpation (GI): Soft to palpation, nontender and No hepatosplenomegaly present Auscultation: normal bowel sounds General: Yes no CVA tenderness Back/Spine/Pelvis Back: no CVA tenderness Skin General skin exam: no rashes or lesions noted Neuro General: oriented to person and patient oriented x3 Cranial nerves: Yes CN's II-XII intact bilaterally Motor exam (neuro): 5/5 motor strength present throughout Sensory Exam: No Sensory deficit (Neuro) Extrem General: Yes normal to inspection Psych Appearance: grossly normal Course Reevaluation(s) Reevaluation #1: labs and viral screen negative will dc on zofran and naprosyn for her myalgias Time: 00:12 Medications Administered Discontinued Medications Generic Name Dose Route Start Last Admin Trade Name Freq PRN Reason Stop Dose Admin Ketorolac Tromethamine 60 mg 07/21/24 22:59 07/21/24 23:08 Ketorolac Tromethamine 60 Mg/2 Ml Vial IM 07/21/24 23:00 60 mg ONCE ONE Administration Ondansetron HCl 4 mg 07/21/24 22:59 07/21/24 23:08 Ondansetron Odt 4 Mg Tab.Rapdis TRANSLINGU 07/21/24 23:00 4 mg ONCE ONE Administration Medical Decision Making Differential Diagnosis Differential Diagnoses: The differential diagnosis associated with the presentation includes (strep throat, flu, covid, rsv, viral gastroenteritis, vomiting, diarrhea) Admission/Observation Consideration of admission/observation: Escalation of care including admission/observation considered (upon arrival admission was considered) Lab Data 07/21/24 22:41 07/21/24 22:41 Labs: Lab Results 07/21/24 Range/Units 22:41 WBC 9.2 (4.8-10.8) X10*3/uL RBC 4.23 (4.20-5.50) X10*6/uL Hgb 12.0 (12.0-16.0) g/dl Hct 36.2 L (37.0-47.0) % MCV 85.6 (80.0-98.0) fL MCH 28.4 (27.0-33.0) pg MCHC 33.1 (31.0-35.0) g/dl RDW 12.8 (11.0-16.0) % Plt Count 370 (160-400) X10*3/uL MPV 10.2 (9.4-12.3) fL Immature Gran % (Auto) 0.1 (0.0-0.4) % Neut % (Auto) 63.2 (45-73) % Lymph % (Auto) 29.3 (20-40) % [place] % (Auto) 5.4 (2-11) % Eos % (Auto) 1.6 (0-4) % Baso % (Auto) 0.4 (0-2) % Lymph # (Auto) 2.7 (1.2-4.9) X10*3/uL [place] # (Auto) 0.5 (0.1-1.2) X10*3/uL Eos # (Auto) 0.2 (0.0-0.4) X10*3/uL Baso # (Auto) 0.0 (0.0-0.2) X10*3/uL Abs Immat Gran (auto) 0.01 (0.00-0.03) X10*3/uL Absolute Neuts (auto) 5.8 (2.0-8.3) x10*3/uL Absolute Nucleated RBC 0.000 (0.0-0.012) X10*3/uL Nucleated RBC % (auto) 0.0 (0.0-0.2) /100WBC Sodium 141 (135-145) mmol/L Potassium 3.4 (3.3-5.1) mmol/L Chloride 109 H (96-108) mmol/L Carbon Dioxide 19 L (22-29) mmol/L Anion Gap 16 (12-20) BUN 9 (9-16) mg/dL Creatinine 0.63 (0.5-1.4) mg/dL Estim Creat Clear Calc 131.9 Estimated GFR > 60 Random Glucose 90 (60-115) mg/dL Calcium 8.2 L (8.4-10.2) mg/dL Total Bilirubin 0.2 (0.0-1.0) mg/dL AST 21 (5-31) U/L ALT 18 (0-31) U/L Alkaline Phosphatase 43 (39-117) U/L Total Protein 5.6 L (6.5-8.0) g/dL Albumin 3.5 (3.5-5.0) g/dL Influenza Type A (PCR) NEGATIVE (Negative) Influenza Type B (PCR) NEGATIVE (Negative) RSV RNA Qual (PCR) NEGATIVE (Negative) SARS-CoV-2 RNA (RT-PCR) NEGATIVE (Negative) Prescription Management I considered prescription management with: Antibiotic (no evidence of bacterial infection) Social Determinants Patient?s care significantly limited by Social Determinants of Health including: Low income Discharge Plan Discharge Clinical Impression: Gastroenteritis Patient Disposition: Home, Self-Care Instructions: Acute Nausea and Vomiting (ED) Prescriptions: New ondansetron 4 mg tablet,disintegrating 4 mg PO Q8H 4 Days Qty: 12 0RF naproxen [Naprosyn] 500 mg tablet 500 mg PO BID Qty: 20 0RF No Action ferrous fumarate 325 mg (106 mg iron) tablet 325 mg PO DAILY Qty: 90 0RF cholecalciferol (vitamin D3) 1,250 mcg (50,000 unit) capsule 1,250 mcg PO QWEEK 90 Days Qty: 13 0RF magnesium oxide 400 mg magnesium capsule 400 mg PO DAILY Qty: 30 0RF meloxicam 15 mg tablet 15 mg PO DAILY Qty: 20 0RF meclizine 25 mg tablet 25 mg PO DAILY PRN (Reason: motion sickness) Qty: 20 0RF Referrals: Nkechi Pineda MD [Primary Care Provider] - 5 days Print Language: Maltese
[2024-07-22 01:41] VITALS: BP 109/58; PULSE 85; RESP 16; TEMP 36.6; O2SAT 97
== END 2024-07-22 01:45 | disposition home or self-care (01) ==
PROVIDERS: Emergency Provider Emergency Medicine; PCP Internal Medicine
DX: K52.9 Noninfective gastroenteritis and colitis, unspecified (principal); J02.9 Acute pharyngitis, unspecified; R51.9 Headache, unspecified; R11.10 Vomiting, unspecified; Z79.899 Other long term (current) drug therapy; Z03.818 Encounter for observation for suspected exposure to other biological agents ruled out
CPT/HCPCS: 0241U; 36415; 80053; 85025; 96372; 99284; J1885

== ENCOUNTER 2024-12-21 09:29 | Outpatient (AMB) | payer OTHER, SELFPAY ==
[2024-12-21 09:31] VITALS: BP 120/80; BMI 37.2
--- NOTE | 2024-12-21 09:31 | A.OFFVIS_ITS ---
Vital Signs 12/21/24 09:31 Height 5 ft 3 in Weight 210 lb BMI 37.2 BP 120/80 Intake Visit Reasons: Control consult Grinder Outside Diameter Services: Grinder Outside Diameter Present Information Interpreted: clinical only Satellite Dish Technician: Satellite Dish Technician Present Allergies meperidine [From DEMEROL] Allergy (Unknown, Verified 12/21/24 09:35) SWELLING, ITCHY Medication List - Last Reconciled 12/21/24 by Judi Yanez CNM No Known Home Meds Is last menstrual period known: Yes Last menstrual period: 12/17/24 HPI HPI Control consult: Details: Patient is here to talk about control she was trying for very long time to get and was also working on weight loss. She is no longer trying to get has decided no more her youngest child 3 is 5 years old. She is sexually active would like control for. She has gained a little bit of weight back from her more recent efforts to lose and she is going to re double her efforts going forward she has an appointment with her primary care provider doctor Pineda on the . [facility] Medical History Vitamin D deficiency Anemia Anxiety Depressed Surgical History History of loop electrical excision procedure (LEEP) Hx of cholecystectomy Family History Mother HTN (hypertension) Diabetes Father HTN (hypertension) Social History Housing: Apartment Alcohol intake: never Patient Tobacco Use Status: Current someday Tobacco user Tobacco use type: Cigarette e-Cigarette/Vaping Use: Never Used service: No Current occupational status: unemployed Current occupational exposures/hazards: No Gender identity: Female Cognitive needs: No Hearing needs: No Vision needs: No Female Reproductive History Menstrual Age of Menarche: 9 Duration of menses: 3-5 days Date of last menstrual period: 12/17/24 control method: none Total pregnancies: 2 Full term: 3 Physical Exam Vital Signs: Last Vital Signs BP 120/80 12/21/24 09:31 BMI result Body Mass Index 37.2 Const Nutritional Appearance: obese Results Reviewed Results Reviewed: Name: Deanna Abraham Age/Sex: 33/F Attending: Judi Yanez CNM : 1990 Submitted by: Judi Yanez CNM Copies to: Shantelle Johnson MD MR #: [id number] Status: DEP REF Collected: 11/02/23 Location: .LAB Received: 11/04/23 Interpretation Satisfactory for evaluation. Negative for intraepithelial lesion or malignancy. HPV mRNA E6/E7: NOT DETECTED This assay detects E6/E7 viral messenger RNA (mRNA) from 14 high-risk HPV types (16, 18, 31, 33, 35, 39, 45, 51, 52, 56, 58, 59, 66, 68) HPV testing performed by [facility], [place], [place]. See reference laboratory portion of the EMR for entire report. Clinical Information LMP: 10/08/2023 Previous PAP test: 2020, neg, abnormal Material Received ThinPrep-Cervical Copies To Shantelle Johnson MD [address] [facility] [address] [place] [id number] Judi Yanez CNM [address] [place] [address] [place] [id number] Electronically Signed By: KATERINA Bishop (ASCP) 11/17/23 0654 The Pap Test is a screening procedure with the inherent possibility of both false negative and false positive results. Results should be interpreted in the context of historic and current clinical findings. Reliability of the Pap Test is enhanced by performing the test on a regular repetitive basis. 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 pap done 12/24/20=neg ,w neg hpv; 11/02/23=cervix multiparous consistent with status post LEEP with tiny closed os. Patient found it painful when I was doing the Pap smear and cultures but bimanual exam was nontender and there was no cervical motion tenderness.-11/02/23 pap is neg w neg HPV.; Code(s): Z87.42 - Personal history of other diseases of the female genital tract Category: Medical (2) control counseling: Code(s): Z30.09 - Encounter for other general counseling and advice on contraception Category: Medical (3) Obesity (BMI 35.0-39.9 without comorbidity): Code(s): E66.9 - Obesity, unspecified Category: Medical Plan -I reviewed with the patient, all of the currently common used methods of control that are available. We reviewed how they work in the body, how they are taken, common side effects, uncommon side effects, precautions, and contraindications. -Discussed also factors that influence their effectiveness and use, and womens satisfaction with the method. -Discussed how each are used, and drawbacks of each method as well. -Methods covered included: condoms, control pills, control patches, control rings, Depo-Provera, Nexplanon, Mirena and Kyleena IUDs, and ParaGard IUDs. All of the above methods were covered in great detail including their side effect profiles and common experiences that women have and ways to mitigate against the negative experiences including attention to diet and exercise patient's with bleeding challenges that may occur her and efforts to time the initiation of the method to this start of the menstrual period. Reviewed with her that I do not normally start women over 35 combination control methods with the estrogen and progestin with a the progestin be acceptable especially though that the Depo-Provera come with attended side effects so that be something to be aware of in consider choice. Additionally discussed Mirena IU S. She has heard of it just side effects she may so here she got her period on the 16th so she is now on day 4 something to start right available option be the norethindrone control pills and she is to take them for short and I am prescribing we will see her in 3 months but it any point if she decides she wants to try a Mirena instead inserted at the beginning of a period we will see her in 3 months to see how she is doing with her pills. At any point if she decides she wanted the IUD instead she should keep taking the pills and call to schedule a Mirena insertion when she starts her period and we could See if we could get her in for that. I discussed that in general the hormones of th progestin only e control IUD are in the same family so might be somewhat similar and she should pay attention to how she feels and if she is not having any issues, but would rather something that she did not have take a pill every day and also would like the effect of her periods getting senior network security engineer and maybe go in the way the Mirena may good to be a good long-term option. I reviewed common side effects to expect and also she should start the pill today, and call us within problems --see her in 3 months if not before. Medications: New norethindrone (contraceptive) 0.35 mg PO DAILY 84 tabs 3RF Coding Level of Care Code Est Pt Level 3 (74015) Diagnoses Hx of abnormal cervical Pap smear Z87.42 control counseling Z30.09 Obesity (BMI 35.0-39.9 without comorbidity) E66.9
== END 2024-12-21 10:29 | disposition home or self-care (01) ==
LOC: HO.HWSM 09:29
PROVIDERS: Visit Provider Advanced Practice Midwife
DX: Z87.42 Personal history of other diseases of the female genital tract (principal); Z30.09 Encounter for other general counseling and advice on contraception; E66.9 Obesity, unspecified
CPT/HCPCS: 99213

== ENCOUNTER → 2024-12-21 09:29 | Outpatient (BNVA) | payer OTHER, SELFPAY | PROVIDERS: Visit Provider Advanced Practice Midwife | DX: E66.9 Obesity, unspecified (principal); Z30.09 Encounter for other general counseling and advice on contraception; Z87.42 Personal history of other diseases of the female genital tract; Z68.37 Body mass index [BMI] 37.0-37.9, adult | CPT/HCPCS: 99212 ==

== ENCOUNTER 2025-01-02 12:00 | Outpatient (AMB) | payer OTHER, SELFPAY ==
--- NOTE | 2025-01-02 12:32 | A.OFFPC_ITS ---
Vital Signs 01/02/25 12:35 Height 5 ft 3 in Weight 212 lb BMI 37.6 BP 108/80 Blood Pressure Location Rt brachial Position Sitting Respiration 15 Pulse 63 Pulse Source Pulse Oximeter Temp 98.2 F Temp Source Oral Pulse Oximetry (%) 98 Oxygen Delivery Method Room Air Intake Visit Reasons: Transfer from [facility]/Anxiety Migraines Intake Note: Pt is here today as a transfer from [facility]/ c/o anxiety and migraines Picker Packer Required: Yes Picker Packer Name: Charlton (Voyce) [id number] Information Interpreted: clinical only Allergies meperidine [From DEMEROL] Allergy (Unknown, Verified 01/02/25 13:00) SWELLING, ITCHY Medication List - Last Reconciled 01/02/25 by Nkechi Pineda MD norethindrone (contraceptive) 0.35 mg PO DAILY Tobacco use date assessed: 01/02/25 Dental Screening Dental Screen Date: 01/02/25 Did you have a dental visit in the last 12 months?: Yes Did you have a dental problem in the last 6 months where you did not have access to dental care?: No Was dental information given to patient?: Patient has dentist HPI Transfer from [facility]/Anxiety Migraines HPI Details 34-year-old lady, new to me, letitia palacios with new PCP, who has history of migraine headache, and depression. He has been taking Excedrin migraine tablets which she states has not been helping anymore with relieving her headache. Would get at least 1-2 episodes a month. Denies any lightheadedness, no chest pain or shortness of breath. Has been having episodes of depression and anxiety attacks, I would like referral to see a therapist but does not want to start medication at present time. She also has been having difficulty with losing weight, has been following a healthy diet, pat has not been exercising regularly, requesting referral to a weight management clinic. [facility] Medical History (Updated 01/02/25 @ 13:22 by Nkechi Pineda MD) Depression with anxiety History of anemia Vitamin D deficiency Depressed Surgical History History of loop electrical excision procedure (LEEP) Hx of cholecystectomy Family History Mother HTN (hypertension) Diabetes Father HTN (hypertension) Social History Housing: Apartment Alcohol intake: never Patient Tobacco Use Status: Former Tobacco user Tobacco use type: Cigarette e-Cigarette/Vaping Use: Never Used service: No Current occupational status: unemployed Current occupational exposures/hazards: No Gender identity: Female Cognitive needs: No Hearing needs: No Vision needs: No Female Reproductive History Menstrual Age of Menarche: 9 Questionnaire PHQ-9 Over the last 2 weeks, how often have you been bothered by any of the following problems? 1. Little interest or pleasure in doing things: several days 2. Feeling down, depressed, or hopeless: several days 3. Trouble falling or staying asleep, or sleeping too much: several days 4. Feeling tired or having little energy: more than half the days 5. Poor appetite or overeating: more than half the days 6. Feeling bad about yourself - or that you are a failure or have let yourself or your family down: several days 7. Trouble concentrating on things, such as reading the newspaper or watching television: several days 8. Moving or speaking so slowly that other people could have noticed. Or the opposite - being so fidgety or restless that you have been moving around a lot more than usual: several days 9. Thoughts that you would be better off or of hurting yourself in some way: not at all Total score: 10 Depression Screening Interpretation: Positive (Referred for counseling) Depression Screening Follow-up: Existing condition, In treatment and Community Mental Health Worker F/U Depression Screening Done: Yes 74007 - PHQ-9 Billing: Yes Source: Developed by Drs. Josh Hightower, Monica Vickers, Neil Pierson and colleagues, with an educational anca from [employer]. Thrive Questionnaire Date Thrive assessed: 01/02/25 I am a: Patient What is your living situation today?: I do not have a steady places to live I am temporarily staying with others Within the past 12 months, did the food you bought not last and you didn't have the money to get more?: Never true Within the past 12 months, did you worry whether your food would run out before you got money to buy more?: Never true Do you have trouble paying for medicines?: No Do you have trouble getting transportation to medical appointments?: No Do you have trouble paying your heating and electricity bill?: No Do you have trouble taking care of your child, family member or friend?: No Do you have trouble with day-to-day activities such as bathing, preparing meals, shopping, managing finances, etc.?: No Are you currently unemployed and looking for a job?: Yes Are you interested in more education?: No Please select the resources that you would like help with: Housing/Skilled Nursing, Utilities and Job search/training Currently or been in a relationship where the following occur: I choose not to answer THRIVE Score: 1 AUDIT C Alcohol Use Questionnaire (AUDIT-C) 1. How often do you have a drink containing alcohol?: Never Total Score: 0 JONATHAN-7 AMB Questionnaire JONATHAN-7 Date JONATHAN - 7 assessed: 01/02/25 Feeling nervous, anxious, or on edge: 1 = Several days Not being able to stop or control worryin = Several days Worrying too much about different things: 1 = Several days Trouble relaxin = Several days Being so restless that it is hard to sit still: 1 = Several days Becoming easily annoyed or irritable: 1 = Several days Feeling afraid as if something awful might happen: 1 = Several days Total JONATHAN-7 score (0-4 normal; 5-9 mild; 10-14 moderate; 15-21 severe): 7 Source: Developed by Drs. Josh Hightower, Monica Vickers, Neil Pierson and colleagues, with an educational anca from [employer]. JONATHAN-7 Assessment Billing JONATHAN-7 Assessment Tool: JONATHAN-7 Assessment 22314 Review of Systems Const All systems reviewed & are unremarkable except as noted in HPI and below Denies chills, Denies fever(s), Denies frequent falls, Denies headache(s) and Denies weakness Eyes Denies blurry vision ENT Denies headache(s) Card Denies chest pain, Denies syncope and Denies dyspnea Resp Denies dyspnea GI Denies diarrhea, Denies nausea and Denies vomiting Reports no additional complaints Musc Denies abnormal gait, Reports back pain and Denies numbness Skin/Breast Denies breast pain, Denies breast mass and Denies lesions Neuro Denies abnormal gait, Denies confusion, Denies syncope, Denies frequent falls, Denies headache(s), Denies numbness, Denies Sensory deficit (Neuro) and Denies weakness Psych Reports as per HPI, Denies confusion, Denies visual hallucinations, Denies hallucinations, Denies tactile hallucinations, Denies homicidal ideation and Denies suicidal ideation Endo Reports no additional complaints Vlad/Lymph Reports no additional complaints Aller/Immun Reports no additional complaints Physical exam (Primary Care) Vital Signs: Last Vital Signs Temp 98.2 F 01/02/25 12:35 Pulse 63 01/02/25 12:35 Resp 15 01/02/25 12:35 BP 108/80 01/02/25 12:35 Pulse Ox 98 01/02/25 12:35 Oxygen Delivery Method Room Air 01/02/25 12:35 BMI result Body Mass Index 37.6 Tobacco/Smoking Status: Tobacco use Status Tobacco use date assessed 01/02/25 01/02/25 12:44 Patient Tobacco Use Status Former Tobacco user 01/02/25 12:44 Tobacco use type Cigarette 01/02/25 12:33 e-Cigarette/Vaping Use Never Used 01/02/25 12:33 PHQ-9: PHQ-9 Score PHQ-9: Total score 10 01/02/25 13:23 Depression Screening Interpretation: Positive (Referred for counseling) Depression Screening Follow-up: Existing condition, In treatment and Community Mental Health Worker F/U Thrive Assessment: Date of Thrive Assessment Date Thrive assessed 01/02/25 01/02/25 12:44 Currently or been in a relationship where the following occur: I choose not to answer Const General: No confusion Orientation/consciousness: No confusion Limitations: no limitations HENMT Ears: external ears normal, TM's normal bilaterally and EAC's normal General nose exam: Normal external nose present Mouth: Normal oral and palatal mucosa present, oropharynx normal and moist mucous membranes Eyes General: appearance normal, both eyes and all related structures Conjunctivae: conjunctivae normal Sclerae: sclerae normal Pupils: Equal, round and reactive pupils present EOM: EOMs intact bilaterally Neck Neck: Yes full ROM, Yes no lymphadenopathy and Yes supple Resp Effort & Inspection: normal respiratory effort and able to speak in complete sentences Auscultation: clear to auscultation bilaterally Cardio Rate: regular rate Rhythm: regular rhythm Heart sounds: S1 normal heart sound present and S2 normal heart sound present GI Palpation (GI): Soft to palpation, nontender and no masses Auscultation: normal bowel sounds Back/Spine/Pelvis Back: No back tenderness Skin General skin exam: no rashes or lesions noted Neuro General: No confusion Cranial nerves: Yes CN's II-XII intact bilaterally and Yes Equal, round and reactive pupils present Cognition (Neuro): normal cognition Sensory Exam: No Sensory deficit (Neuro) Extrem General: Yes full ROM, Yes no joint enlargement, Yes no clubbing, cyanosis or edema and Yes no calf tenderness Psych Appearance: grossly normal and well kempt Mental Status: mental status grossly normal Speech and movement: Normal speech and movement present Affect: normal affect Attitude: cooperative Thought process: Normal thought process present Thought content: Normal thought content present Coding Level of Care Code Est Pt Level 4 (21237) Complex EM visit Add On G2211 Diagnoses Obesity (BMI 35.0-39.9 without comorbidity) E66.9 Depression with anxiety F41.8 Migraine without status migrainosus, not intractable, unspecified migraine type G43.909 Intractability: not intractable Migraine type: unspecified Status migrainosus presence: without status migrainosus Additional Codes JONATHAN-7 Assessment Billing - JONATHAN-7 Assessment Tool: JONATHAN-7 Assessment 24663 ([id number]) PHQ-9 - 44916 - PHQ-9 Billing: Yes ([id number]) Assessment & Plan Assessment & Plan (1) Obesity (BMI 35.0-39.9 without comorbidity): Code(s): E66.9 - Obesity, unspecified Category: Medical Plan: Referred to [facility] for dietary guidance, Referred to medical weight management program. Reinforced importance of following healthy diet and getting regular exercise (2) Depression with anxiety: Code(s): F41.8 - Other specified anxiety disorders Category: Medical Plan: Patient referred to our mental health coordinator, Thao Vanegas , for assistance with getting appointment for therapy, patient wants to do telehealth with a Sinhala-speaking therapist. Does not want to start any medication at present time (3) Migraines: Comment: Utilizes Excedrin PRN with moderate effect. Patient have patient start 400 mg p.o. daily of magnesium Code(s): G43.909 - Migraine, unspecified, not intractable, without status migrainosus Category: Medical Qualifiers: Intractability: not intractable Migraine type: unspecified Status migrainosus presence: without status migrainosus Qualified Code(s): G43.909 - Migraine, unspecified, not intractable, without status migrainosus Plan: Prescription for sumatriptan 100 mg per tablet to take 1 tablet at onset of headache and a repeat another dose after 2 hours if no you do not taking it in 2 tablets in 24 mm. . Effects of medication discussed with patient which may include keep flushing Orders: Referrals Medical Weight Management Referral E66.9 - Obesity, unspecified Medications: New sumatriptan succinate take 1 tab at onset of headache; if no relief, may repeat 1 tab after at least 2 hrs; max = 2 tabs/24 hrs PO 10 tabs 1RF
[2025-01-02 12:35] VITALS: BP 108/80; PULSE 63; RESP 15; TEMP 36.8; O2SAT 98; BMI 37.6
== END 2025-01-02 13:47 | disposition home or self-care (01) ==
LOC: HO.HMCC 12:01
PROVIDERS: Visit Provider Internal Medicine
DX: G43.909 Migraine, unspecified, not intractable, without status migrainosus (principal); E66.9 Obesity, unspecified; Z68.37 Body mass index [BMI] 37.0-37.9, adult; F41.8 Other specified anxiety disorders

== ENCOUNTER → 2025-01-02 12:00 | Outpatient (BNVA) | payer OTHER, SELFPAY | PROVIDERS: Visit Provider Internal Medicine | DX: E66.9 Obesity, unspecified (principal); F41.8 Other specified anxiety disorders; G43.909 Migraine, unspecified, not intractable, without status migrainosus | CPT/HCPCS: 96127; 99212 ==

== ENCOUNTER → 2025-01-12 11:25 | Outpatient (BNVA) | payer OTHER, SELFPAY | PROVIDERS: PCP Internal Medicine ==

== ENCOUNTER 2025-01-16 09:18 | Outpatient (AMB) | payer OTHER, SELFPAY ==
--- NOTE | 2025-01-16 09:26 | AM.OFFWIN_ITS ---
Intake Vital Signs 01/16/25 09:29 Height 5 ft 3 in Weight 218 lb BMI 38.6 BP 126/80 Blood Pressure Location Rt brachial Position Sitting Pulse 86 Pulse Source Pulse Oximeter Pulse Oximetry (%) 96 Oxygen Delivery Method Room Air Intake Visit Reasons: EP-lt arm mass Intake Note: Patient here for migraine and was given meds for it previously which worked but she does not have anymore and she would also like to have left arm checked, states she feels a lump and is tender to the touch. Patient Tobacco Use Status: Former Tobacco user Allergies meperidine [From DEMEROL] Allergy (Unknown, Verified 01/16/25 09:30) SWELLING, ITCHY Do you need a note to return to daycare/school/sports/work: No HPI HPI Comments History of Present Illness Details This is a 34-year-old female with a past medical history of migraine headaches presenting for evaluation of a migraine headache that she woke up with this morning behind her left eye. Patient states that she had nausea this morning that has since resolved and she denies any vomiting, visual changes, neck pain, fevers or chills. Patient has not taken any medication for treatment of her discomfort. Patient states she was previously prescribed sumatriptan however has run out of this medication. Patient is also complaining of pain in her left tricep that she first noticed on Wednesday when rubbing her left arm. She denies any injury or trauma preceding the onset of this aching sensation and has not taken any medication for treatment of this discomfort. Patient is right hand dominant. [facility] Medical History (Updated 01/16/25 @ 09:58 by Keesha Garza PA-C) Depression with anxiety History of anemia Vitamin D deficiency Depressed Surgical History History of loop electrical excision procedure (LEEP) Hx of cholecystectomy Family History Mother HTN (hypertension) Diabetes Father HTN (hypertension) Social History Housing: Apartment Alcohol intake: never Patient Tobacco Use Status: Former Tobacco user Tobacco use type: Cigarette e-Cigarette/Vaping Use: Never Used service: No Current occupational status: unemployed Current occupational exposures/hazards: No Gender identity: Female Cognitive needs: No Hearing needs: No Vision needs: No Female Reproductive History Menstrual Age of Menarche: 9 Review of Systems Const All systems reviewed & are unremarkable except as noted in HPI and below Reports headache(s) Eyes Reports no additional complaints ENT Reports no additional complaints and Reports headache(s) Card Reports no additional complaints Resp Reports no additional complaints GI Reports no additional complaints Reports no additional complaints Musc Details: left tricep pain Skin/Breast Reports system reviewed and no additional complaints, except as documented Neuro Reports no additional complaints and Reports headache(s) Psych Reports no additional complaints Endo Reports no additional complaints Vlad/Lymph Reports no additional complaints Aller/Immun Reports no additional complaints Physical Exam Vital Signs: Last Vital Signs Pulse 86 01/16/25 09:29 BP 126/80 01/16/25 09:29 Pulse Ox 96 01/16/25 09:29 Oxygen Delivery Method Room Air 01/16/25 09:29 BMI result Body Mass Index 38.6 Const General: cooperative, healthy appearing, comfortable, no acute distress, well developed, alert, awake and Physically active Nutritional Appearance: average body habitus Orientation/consciousness: patient oriented x3 Limitations: no limitations HEENT Head: Yes normal to inspection and Yes normocephalic Eyes General: appearance normal, both eyes and all related structures Visual Matta: normal visual matta by confrontation Alignment and Position: alignment normal Periorbital: periorbital findings normal Eyelids: Yes eyelids normal Conjunctivae: conjunctivae normal Pupils: Equal, round and reactive pupils present EOM: EOMs intact bilaterally Direct Ophthalmoscopy: no photophobia Neuro General: patient oriented x3, no focal motor deficits and CN's II-XI intact bilaterally Cranial nerves: Yes CN's II-XII intact bilaterally and Yes Equal, round and reactive pupils present Gait exam (Neuro): Normal gait present Motor exam (neuro): 5/5 motor strength present throughout Extrem Other: pain to palpation left tricep; no palpable lesions, no ecchymosis, no edema, erythema or abrasions. 5/5 strength with extension and flexion of left olecranon without exacerbation of left tricep pain. General: Yes normal to inspection Psych Appearance: grossly normal Mental Status: mental status grossly normal Insight: Good insight present (Psych) Judgement: Good judgement present (Psych) Assessment & Plan Assessment & Plan (1) Acute headache: Comment: Patient is neurologically intact and in no acute distress. Records reveal a previous prescription for sumatriptan which will be represcribed. Code(s): R51.9 - Headache, unspecified Qualifiers: Headache type: unspecified Intractability: not intractable Qualified Code(s): R51.9 - Headache, unspecified Plan: Sumatriptan as directed. Quantity #5. (2) Strain of left triceps: Comment: 5/5 strength intact upper extremities bilaterally Code(s): S46.312A - Strain of muscle, fascia and tendon of triceps, left arm, initial encounter Qualifiers: Encounter type: initial encounter Qualified Code(s): S46.312A - Strain of muscle, fascia and tendon of triceps, left arm, initial encounter Plan: Warm compresses, ibuprofen as needed. Medications: New sumatriptan succinate take 1 tab at onset of headache; if no relief may repeat 1 tab after at least 2 hrs; max = 4 tabs/24 hr PO 5 tabs 0RF Coding Level of Care Code Est Pt Level 3 (01331) Diagnoses Acute nonintractable headache, unspecified headache type R51.9 Headache type: unspecified Intractability: not intractable Strain of left triceps, initial encounter S46.312A Encounter type: initial encounter Time Spent (min) 20
[2025-01-16 09:29] VITALS: BP 126/80; PULSE 86; O2SAT 96; BMI 38.6
== END 2025-01-16 10:18 | disposition home or self-care (01) ==
PROVIDERS: PCP Internal Medicine; Visit Provider Physician Assistant
DX: R51.9 Headache, unspecified (principal); S46.312A Strain of muscle, fascia and tendon of triceps, left arm, initial encounter

== ENCOUNTER → 2025-01-16 09:18 | Outpatient (BNVA) | payer OTHER, SELFPAY | PROVIDERS: PCP Internal Medicine; Visit Provider Physician Assistant | DX: R51.9 Headache, unspecified (principal); S46.312A Strain of muscle, fascia and tendon of triceps, left arm, initial encounter | CPT/HCPCS: 99212 ==

== ENCOUNTER → 2025-02-02 09:38 | Outpatient (BNVA) | payer OTHER, SELFPAY | PROVIDERS: PCP Internal Medicine; Visit Provider Surgery ==

== ENCOUNTER 2025-02-12 08:05 | Outpatient (AMB) | payer OTHER, SELFPAY ==
--- NOTE | 2025-02-12 11:04 | A.OFFVIS_ITS ---
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: Yes Reimbursement Auditor Services: Reimbursement Auditor Present Information Interpreted: clinical only Allergies meperidine [From DEMEROL] Allergy (Unknown, Verified 02/12/25 11:05) SWELLING, ITCHY Medication List - Last Reconciled 02/12/25 by Steve Farrell MD norethindrone (contraceptive) 0.35 mg PO DAILY HPI HPI [employer] SW[employer] 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*: Details: Start time: 10.56am, End time: 11.47 ?I spent 46 minutes speaking with the patient on the phone plus an additional 5 minutes reviewing and updating records for a total of 51 minutes HPI Comments Details: Previous weight loss efforts: none Wakes up: 7am, Sleeps: 10pm Breakfast: some days per week (eggs, oatmeal, pancakes) Lunch: skips Dinner: 6-7pm (meat, rice, chicken, avocado) Snacks: 2-3 snacks before dinner (sweets, , fried), occasionally also after dinner Exercise: none Beverages: Coffee (1 cup/day with cream and sugar), tea: none, soda: none, juice: a few times per week, ETOH: 2/wk (2 beers per each time) [facility] Medical History (Updated 02/12/25 @ 11:28 by Steve Farrell MD) BMI 38.0-38.9,adult Obesity Recurrent headache Depression with anxiety History of anemia Vitamin D deficiency Depressed Surgical History History of loop electrical excision procedure (LEEP) Hx of cholecystectomy Family History Mother HTN (hypertension) Diabetes Father HTN (hypertension) Social History Housing: Apartment Alcohol intake: never Patient Tobacco Use Status: Former Tobacco user Tobacco use type: Cigarette e-Cigarette/Vaping Use: Never Used service: No Current occupational status: unemployed Current occupational exposures/hazards: No Gender identity: Female Cognitive needs: No Hearing needs: No Vision needs: No Female Reproductive History Menstrual Age of Menarche: 9 Telehealth Telehealth Telehealth Platform: Telephone Location of provider rendering services: practice address Location of patient: address on file Patient Identification confirmed using: Name, : Yes Telehealth method: voice only Patient verbally consented to treatment: Yes Patient verbally consented to billing insurance company: Yes Patient informed of any privacy concerns related to visit: Yes Minutes spent on Phone/Video with Pt.: 51 Assessment & Plan Assessment & Plan (1) Obesity: Code(s): E66.9 - Obesity, unspecified Category: Medical Qualifiers: Obesity type: due to excess calories Obesity classification: adult class 2 (BMI 35 - 39.9) Serious obesity comorbidity presence: without serious comorbidity Body mass index: BMI 38.0-38.9 Qualified Code(s): E66.812 - Obesity, class 2; E66.09 - Other obesity due to excess calories; Z68.38 - Body mass index [BMI] 38.0-38.9, adult Plan: 1.? Plan for lap sleeve gastrectomy. If diaphragmatic or ventral hernias are present at time of surgery, these will be repaired laparoscopically as well. I emphasized the importance of close follow-up, adherence to instructions and good communication. The surgery does not replace the need to change your lifestlyle which is the cause of the obesity problem. The surgery provides the motivation to try again to change your lifestyle, it reduces the appetite and make the transition to a better lifestyle easier and doubles the amount of weight you would lose compared to doing the lifestyle change without the surgery. You will need to be on a liquid diet with protein shakes for 2 weeks before surgery to maximize weight loss and boost your nutritional status to recover better from surgery and also for the first two weeks after surgery to let the stomach heal before we introduce other foods. After the first 2 weeks we will introduce protein bars and soft foods like scrambled eggs, cottage cheese and yogurt and after the 6th week will introduce meat, fish and cooked veg etables in small amounts. Over time you should be able to eat everything in small amounts. Side effects like nausea, vomiting, heartburn or abdominal pain are not common in the practice unless you are not following in the practice. This operation requires lifetime commitment to following in our practice and communication with me. You will much less weight and experience side effects if you don?t communicate or not following in the practice. Complications are rare and in our practice is about 1/10 of the national average. However, you can develop bleeding that may require transfusion (hasn?t happened for year in the practice), you may from complications (we did not have any deaths in the practice) and infections. Infections are usually a result of breakdown in communication or not understanding or following directions correctly. They are difficult to treat, they can happen during the first 6 weeks, they may require to be in the hospital for weeks or even months, not being able to eat by mouth and you may have drains and surgeries to try and correct the issue. Other risks and complications include possible conversion to an open procedure, leaks, small bowel obstruction, blood clots, cardiac, or pulmonary complications, as detention complications such as ulcers, insufficient weight loss and vitamin deficiencies. 2.? Nutritional counseling. Start with one premade Premier protein (buy at [employer] or [employer]) shake (mix 4oz of Premier shake with 4oz low fat unsweetened almond milk) at 8am-10am, 1 protein bar (Fit Crunch protein bars, buy at [employer] or [employer]) at 11am-1pm, another premade Premier protein (buy at [employer] or [employer]) shake (mix 4oz of Premier shake with 4oz low fat unsweetened almond milk) at 2pm-4pm, dinner at 5pm (8 forks of protein and 8 forks of salad/vegetables) and one more protein bar after dinner at 7pm-9pm. So you do 2 protein shakes, 2 protein bars and one meal per day. Meal to include lean meat (beef, fish, pork, turkey, chicken), or georgian yogurt, or egg whites, or beans with a salad with olive oil and fruits (berries, pears, apples, kiwi). Avoid salt, breads, potatoes, rice, pasta, desserts. 3. Each shake would be drunk slowly, like coffee in a period of 2 hours. 4. Cut each bar in 4 pieces and eat each piece in 30min ?to make each bar last 2 hours. 5. I emphasized the importance of measuring accurately the food portion and measure it when serving the food in plate 6. The meal portions include 8 full-size forks of meat and 8 full-size forks of salad. You always eat the meat portion but you can replace up to 4 forks for salad/vegetables with rice, potatoes or pasta, or a fruit ?if you like. The less you do it the better weight loss will be. 7. One full-size fork is what it can be scooped on the fork without falling aside and not what can be bit with the fork. Use regular forks like those you find in a typical restaurant. 8.? Please buy the body composition scale we discussed and send me weight measurements as soon as possible and then once a week. Always include your diet and exercise plan. 9. Start walking outside daily, tracking calories with a goal of 300 calories per day, daily. Goal is to burn 2000 calories per week on exercise, which means either 300 calories daily, or 400 calories 5 days per week, or 500 calories 4 days per week, or 650 calories 3 days per week. 10. The best choice would be to purchase a stationary bike at home that can track calories. Let me know if you do so I can give you an exercise plan. 11.?It is important of avoiding and for at least 18 months postoperatively and has been discussed at the infosession. 12. Goal is to lose at least 1.5-2lbs per week 13. Goal to lose 10% of your weight before surgery, which is about 20lbs. Ultimate weight goal: 200lbs before surgery 14. Please follow the diet plan exactly without any change. If you don't like something about the plan or you feel hungry you need to communicate with me so I can help you revise the plan. You should not change the plan yourself 15. To be scheduled for EGD to assess the stomach's anatomy. The possibility of biopsies was discussed. Patient needs to avoid use of NSAIDs and aspirin for 1 week prior to EGD. You must be on liquids only the day before your endoscopy. Risks of perforation and bleeding was discussed with the patient. This will be an outpatient procedure with IV sedation. Orders: Orders Insulin Today E28.2 - Polycystic ovarian syndrome, E66.9 - Obesity, unspecified H Pylori Breath Test Today E28.2 - Polycystic ovarian syndrome, E66.9 - Obesity, unspecified Complete Blood Count Auto Diff Today E28.2 - Polycystic ovarian syndrome, E66.9 - Obesity, unspecified IRON PROFILE Today E28.2 - Polycystic ovarian syndrome, E66.9 - Obesity, unspecified Vitamin B12 and Folate Today E28.2 - Polycystic ovarian syndrome, E66.9 - Obesity, unspecified Zinc Today E28.2 - Polycystic ovarian syndrome, E66.9 - Obesity, unspecified TSH reflex Free T4 Today E28.2 - Polycystic ovarian syndrome, E66.9 - Obesity, unspecified Ferritin Today E28.2 - Polycystic ovarian syndrome, E66.9 - Obesity, unspecified Vitamin D 25-OH Total Today E28.2 - Polycystic ovarian syndrome, E66.9 - Obesity, unspecified US abdomen comp w elastography Today E28.2 - Polycystic ovarian syndrome, E66.9 - Obesity, unspecified XR chest 2V Today E28.2 - Polycystic ovarian syndrome, E66.9 - Obesity, unspecified Hemoglobin A1c Today E28.2 - Polycystic ovarian syndrome, E66.9 - Obesity, unspecified Lipid Panel Today E28.2 - Polycystic ovarian syndrome, E66.9 - Obesity, unspecified Comprehensive Met. Panel Today E28.2 - Polycystic ovarian syndrome, E66.9 - Obesity, unspecified C Reactive Protein Today E28.2 - Polycystic ovarian syndrome, E66.9 - Obesity, unspecified Vitamin B1 Today E28.2 - Polycystic ovarian syndrome, E66.9 - Obesity, unspeci fied Vitamin A Today E28.2 - Polycystic ovarian syndrome, E66.9 - Obesity, unspecified ECG 12 lead EKG Today E28.2 - Polycystic ovarian syndrome, E66.9 - Obesity, unspecified FL upper GI w air Today E28.2 - Polycystic ovarian syndrome, E66.9 - Obesity, unspecified Referrals Behavioral Health Referral E28.2 - Polycystic ovarian syndrome, E66.9 - Obesity, unspecified Nutrition/Dietitian Referral E28.2 - Polycystic ovarian syndrome, E66.9 - Obesity, unspecified
[2025-02-12 11:26] VITALS: BMI 38.8
== END 2025-02-12 11:48 | disposition home or self-care (01) ==
LOC: HO.HBS 08:05
PROVIDERS: PCP Internal Medicine; Visit Provider Surgery
DX: E66.09 Other obesity due to excess calories (principal); E66.812 Obesity, class 2; Z68.38 Body mass index [BMI] 38.0-38.9, adult
CPT/HCPCS: 99204

== ENCOUNTER → 2025-02-12 08:05 | Outpatient (BNVA) | payer OTHER, SELFPAY | PROVIDERS: PCP Internal Medicine; Visit Provider Surgery ==

== ENCOUNTER 2025-02-13 09:31 | Outpatient (REF) | payer OTHER, SELFPAY ==
--- NOTE | ~2025-02-13 | XR_ITS ---
EXAMINATION: XR CHEST CLINICAL INFORMATION: E66.9 - Obesity, unspecified COMPARISON: December 20, 2022. TECHNIQUE: 2 views of the chest were obtained. FINDINGS: Poor inspiration. No consolidation pleural effusion or pneumothorax. Cardiomediastinal silhouette size is normal. Metallic piercing likely in the nipple areola region No acute cortical disruption or malalignment the axial skeleton. Vascular clips right upper quadrant abdomen. Patient's large body habitus/obesity.. XR/XR chest 2V IMPRESSION: No acute airspace disease. Electronically signed by: nAoop Espinoza MD 02/13/2025 10:18 AM EDT
[2025-02-13 09:51] LABS: MANUAL DIFF FLAG NO
--- NOTE | 2025-02-13 09:51 | ECG_ITS ---
Test Reason : E66.9 Blood Pressure : */* mmHG Vent. Rate : 70 BPM Atrial Rate : 70 BPM P-R Int : 166 ms QRS Dur : 88 ms QT Int : 400 ms P-R-T Axes : -8 38 25 degrees QTcB Int : 432 ms Normal sinus rhythm Normal ECG When compared with ECG of 12-Jan-2019 16:25, No significant change was found Referred By: Steve Farrell Electronically Signed By: BEKA MERLOS MD
[2025-02-13 10:44] LABS: Basophils Percent Auto 0.6 % (0-2); Eosinophils Absolute Auto 0.1 X10*3/uL (0.0-0.4); Eosinophils Percent Auto 1.8 % (0-4); Hematocrit 38.3 % (37.0-47.0); Hemoglobin 11.9 g/dl (12.0-16.0); Imm Gran Abs Auto 0.03 X10*3/uL (0.00-0.03); Imm Gran Pct Auto 0.4 % (0.0-0.4); Lymphocytes Absolute Auto 1.7 X10*3/uL (1.2-4.9); Lymphocytes Percent Auto 25.6 % (20-40); Mean Corpuscular HGB Conc 31.1 g/dl (31.0-35.0); Mean Corpuscular Hemoglobin 27.3 pg (27.0-33.0); Mean Corpuscular Volume 87.8 fL (80.0-98.0); Mean Platelet Volume 10.8 fL (9.4-12.3); Monocytes Absolute Auto 0.4 X10*3/uL (0.1-1.2); Monocytes Percent Auto 5.5 % (2-11); Neutrophils Absolute Auto 4.5 x10*3/uL (2.0-8.3); Neutrophils Percent Auto 66.1 % (45-73); Platelet Count 310 X10*3/uL (160-400); Red Blood Count 4.36 X10*6/uL (4.20-5.50); Red Cell Distribution Width 14.3 % (11.0-16.0); White Blood Count 6.8 X10*3/uL (4.8-10.8)
[2025-02-13 10:55] LABS: Estimated Average Glucose 100 mg/dL; Hemoglobin A1C 101.1964 umol/L; Hemoglobin A1c % 5.1 % (<6.0)
[2025-02-13 12:08] LABS: Ferritin 25 ng/mL (10-122); Iron 39 mcg/dL (30-160); Percent Iron Saturation 11 % (15-50); TSH reflex Free T4 16.01 uIU/mL (0.32-4.0); Total Iron Binding Capacity 354 mcg/dL (228-428); Unsaturated Iron Binding 315 ug/dL; Vitamin D 25-OH Total 10.8 ng/mL (>30)
[2025-02-13 12:10] LABS: Alanine Aminotransferase 17 U/L (0-31); Albumin Level 4.2 g/dL (3.5-5.0); Anion Gap 10 (12-20); Aspartate Amino Transferase 19 U/L (5-31); Bilirubin Total 0.3 mg/dL (0.0-1.0); Blood Urea Nitrogen 12 mg/dL (9-16); Carbon Dioxide 26 mmol/L (22-29); Chloride 109 mmol/L (96-108); Cholesterol 188 mg/dL (<200); Estimated Glomerular Filt Rate > 60; Glucose Random 80 mg/dL (60-115); HDL Cholesterol 50 mg/dL (>40); Iron 39 mcg/dL (30-160); LDL Cholesterol Calculated 126 mg/dL (<100); Magnesium 2.1 mg/dL (1.6-2.6); Percent Iron Saturation 11 % (15-50); Sodium 141 mmol/L (135-145); Total Iron Binding Capacity 359 mcg/dL (228-428); Total Protein 7.3 g/dL (6.5-8.0); Triglycerides 64 mg/dL (<150); Unsaturated Iron Binding 320 ug/dL
[2025-02-13 12:14] LABS: Vitamin D 25-OH Total 11.3 ng/mL (>30)
[2025-02-13 12:34] LABS: Alkaline Phosphatase 73 U/L (39-117)
[2025-02-13 12:39] LABS: Free T4 (Free Thyroxine) 0.65 ng/dL (0.71-1.85)
[2025-02-13 14:35] LABS: Folate 14.7 ng/mL (> or = 4.0); Vitamin B12 438 pg/mL (200-900)
[2025-02-16 01:43] LABS: Zinc 67 mcg/dL (60-130)
== END 2025-02-13 09:32 | disposition home or self-care (01) ==
LOC: HO.XRAY 09:31
PROVIDERS: PCP Internal Medicine; Visit Provider Surgery
DX: E66.9 Obesity, unspecified (principal); E55.9 Vitamin D deficiency, unspecified; D64.9 Anemia, unspecified; N92.4 Excessive bleeding in the premenopausal period; E28.2 Polycystic ovarian syndrome
CPT/HCPCS: 36415; 71046; 80053; 80061; 82306; 82607; 82728; 82746; 83036; 83540; 83735; 84425; 84439; 84443; 84590; 84630; 85025; 86140; 93005

== ENCOUNTER → 2025-02-13 09:51 | Outpatient (BNV) | payer OTHER, SELFPAY | PROVIDERS: PCP Internal Medicine; Visit Provider Internal Medicine Cardiovascular Disease | DX: E66.9 Obesity, unspecified (principal) | CPT/HCPCS: 93010 ==

== ENCOUNTER → 2025-02-13 10:04 | Outpatient (BNV) | payer OTHER, SELFPAY | PROVIDERS: PCP Internal Medicine; Visit Provider Radiology Diagnostic Radiology | DX: E66.9 Obesity, unspecified (principal) | CPT/HCPCS: 71046 ==

== ENCOUNTER 2025-02-15 09:36 | Outpatient (REF) | payer OTHER, SELFPAY ==
[2025-02-15 11:40] LABS: Insulin 23 uU/mL (2-29)
[2025-02-20 02:29] LABS: Vitamin A 50 mcg/dL (38-98)
[2025-02-21 15:54] LABS: Vitamin B1 19 nmol/L (8-30)
== END 2025-02-15 09:37 | disposition home or self-care (01) ==
LOC: HO.LAB 09:36
PROVIDERS: PCP Internal Medicine; Visit Provider Surgery
DX: E66.9 Obesity, unspecified (principal); E28.2 Polycystic ovarian syndrome
CPT/HCPCS: 36415; 83525; 84425; 84590

== ENCOUNTER 2025-03-06 11:17 | Outpatient (AMB) | payer OTHER, SELFPAY ==
--- NOTE | 2025-03-06 11:05 | MHC.WMTHER ---
Intake Intake Visit Reasons: VIDEO BH Intake Allergies meperidine [From DEMEROL] Allergy (Unknown, Verified 02/12/25 11:05) SWELLING, ITCHY PFSH Medical History (Updated 02/19/25 @ 19:15 by Steve Farrell MD) Hypothyroidism BMI 38.0-38.9,adult Obesity Recurrent headache Depression with anxiety History of anemia Vitamin D deficiency Depressed Surgical History History of loop electrical excision procedure (LEEP) Hx of cholecystectomy Family History Mother HTN (hypertension) Diabetes Father HTN (hypertension) Social History Housing: Apartment Alcohol intake: never Patient Tobacco Use Status: Former Tobacco user Tobacco use type: Cigarette e-Cigarette/Vaping Use: Never Used service: No Current occupational status: unemployed Current occupational exposures/hazards: No Gender identity: Female Cognitive needs: No Hearing needs: No Vision needs: No Female Reproductive History Menstrual Age of Menarche: 9 Behavioral Health Assessment Weight Management Therapy Therapy Notes Details The patient is a 34-year-old female presenting for an initial visit to begin a behavioral health assessment as part of a surgical weight loss program. She was referred to the program by her primary care physician due to obesity and the associated physical challenges. Presenting Concerns Referral Source WMP-Provider Reason for referral Completion of behavioral health assessment as part of process for weight-loss surgery. Precipitating Event Obesity Living Situation Current Living Situation Relative's/Guardian's Jeremy and Rent At risk of losing current housing? No Satisfied with current living situation? No Comments PT lives with in a room she rents at a friends' home 3 months ago. She lost her apartment about 5 months ago, was living in a hotel for 2 months, now living in a friend's home. Food/Weight/Diet Expectations of change Initial goal to lose 10% of her weight before surgery, which is about 20lbs. Ultimate weight goal: 200lbs before surgery PT started the program on 02/02/2025 at 219Lbs (Weight check malou), however she gained weight after initial weight check and was at 224Lbs on 02/12/2025. Weight as of yesterday 03/05/2025: 216Lbs. PT is implementing the following: Current meal plan: 2 protein shakes, 2 protein bars and one meal per day. Exercise plan: Outdoor walks. Scale: Yes Communication with provider. Yes. Mondays. History/Relationship with food PT reports her diet was high in carbs and foods that contains refined/added sugar Example of meals before starting the program: Breakfast: Lunch: Dinner: Snacks: Drinks/Liquids: History/Relationship with weight In the last 10 years, the patient's Lowest weight was 160Lbs and highest 275Lbs Social History Family history and relationship PT is a single mother of 3. She from her youngest son a few months ago. Currently dating. She has twin girls who are 9 years old and a 5 year old boy. 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 Developmental history and status None reported in the past. Currently WNL. Social support Boyfriend, friend Community support PCP who referred here. Buddhism/Spirituality None. Cultural/Ethnic information . Born in [place]. She has been living in [place] about 10 years ago. Legal Involvement and History Current or historical involvement with the legal system? Housing court case - closed 2 months. Education Highest grade completed 10th Preferred learning style Learn by doing and Visual Currently enrolled in educational program? No Interested in further educational program? No Employment Employment Status Unemployed (Since July 2024.) Wants help to find employment? No Financial Situation Describe current financial situation Often struggles with finance Financial assistance? Food [place] and [employer]AF[employer] Service Service? No Mental Health and Addiction Treatment Current/Past substance abuse? No Comments Alcohol: 1 time ever 2-3 months, 1-2 beers. Cigarettes/Tobacco: none Vaping: None Cannabis/Edibles: None. Current/Past addictive behavior concerns? No Psychiatric history PT reports she has been in counseling and outpatient psychiatric tx due to depression and anxiety at [facility]. Her case was closed in August/2024. PT doesn't remember the name of the last medications she got prescribed. PT reports she has never been hospitalized for MH or in crisis. Also denies any history or recent concerns around SI/Sa, self-harm, other harm. Medical and Physical Health Summary Additional Medical History not covered in history None Sexual History concerns None reported. Pain Screening Current pain? Yes Pain in the last few months? Yes Comments Knee and back pain. Also has migraines (frequent headaches). Questionnaires PHQ-9 Over the last 2 weeks, how often have you been bothered by any of the following problems? 1. Little interest or pleasure in doing things: more than half the days 2. Feeling down, depressed, or hopeless: more than half the days 3. Trouble falling or staying asleep, or sleeping too much: more than half the days 4. Feeling tired or having little energy: more than half the days 5. Poor appetite or overeating: more than half the days 6. Feeling bad about yourself - or that you are a failure or have let yourself or your family down: more than half the days 7. Trouble concentrating on things, such as reading the newspaper or watching television: not at all (Did not responded) 8. Moving or speaking so slowly that other people could have noticed. Or the opposite - being so fidgety or restless that you have been moving around a lot more than usual: several days 9. Thoughts that you would be better off or of hurting yourself in some way: not at all (Did not responded) Total score: 13 Depression Screening Interpretation: Positive (2 questions were not answered. These scores are from new PT pack. a New one will be administered before assessment is fully done. ) Depression Screening Done: Yes Source: Developed by Drs. Josh Hightower, Monica Vickers, Neil Pierson and colleagues, with an educational anca from [employer]. Binge Eating Scale Group 1 A. I don't feel self-conscious about my wt. or body size when I'm with others. B. I feel concerned about how I look to others, but it normally does not make me fell disappointed with myself C. I do get self-conscious about my appearance and wt. which makes me feel disappointed in myself. D. I feel very self-conscious about my wt. and frequently I feel intense shame and disgust for myself. I try to avoid social contacts because of my self-consciousness. Response Group 1: C Group 2 A. I don't have any difficulty eating slowly in the proper manner. B. Although I seem to gobble down foods, I don't end up feeling stuffed because of eating to much. C. At times, I tend to eat quickly and then, I feel uncomfortably full afterwards. D. I have the habit of bolting down my food, without really chewing it. When this happens I usually feel uncomfortably stuffed because I've eaten to much. Response Group 2: C Group 3 A. I feel capable to control my eating urges when I want to. B. I feel like I have failed to control my eating more than the average person. C. I feel utterly helpless when it comes to feeling in control of my eating urges. D. Because I feel so helpless about controlling my eating I have become very desperate about trying to get control. Response Group 3: C Group 4 A. I don't have the habit of eating when I'm bored. B. I sometimes eat when I'm bored, but often I'm able to get busy and get my mind off food. C. I have a regular habit of eating when I'm bored, but occasionally, I can use some other activity to get my mind off eating. D. I have a strong habit of eating when I'm bored. Nothing seems to help me breath the habit. Response Group 4: B Group 5 A. I'm usually physically hungry when I eat something. B. Occasionally, I eat something on impulse even though I really am not hungry. C. I have the regular habit of eating foods, that I might not really enjoy, to satisfy a hungry feeling even though physically, I don't need the food. D. Although I'm not physically hungry, I get a hungry feeling in my mouth that only seems to be satisfied when I eat a food, like sandwich, that fills my mouth. Sometimes, when I eat the food to satisfy my mouth hunger, I then spit the food out so I won't gain weight. Response Group 5: B Group 6 A. I don't feel any guilt or self-hate after I overeat. B. After I overeat, occasionally I feel guilt or self-hate. C. Almost all the time I experience strong guilt or self-hate after I overeat. Response Group 6: B Group 7 A. I don't lose total control of my eating when dieting even after periods when I overeat. B. Sometimes when I eat a forbidden food on a diet, I feel like I blew it and eat even more. C. Frequently, I have the habit of saying to myself, I've blown it now, why not go all the way, when I overeat on a diet. When that happens I eat more. D. I have a regular habit of starting a strict diets for myself but I break the diets by going on an eating binge. My life seems to be either a feast or famine. Response Group 7: A Group 8 A. I rarely eat so much food that I feel uncomfortably stuffed afterwards. B. Usually about once a month, I each such a quantity of food, I end up feeling very stuffed. C. I have regular periods during the month when I eat large amounts of food, either at mealtime or at snacks. D. I eat so much food that I regularly feel quite uncomfortable after eating and sometimes a bit nauseous. Response Group 8: B Group 9 A. My level of calorie intake does not go up very high or go down very low on a regular basis. B. Sometimes after I overeat, I will try to reduce my caloric intake to almost nothing to compensate for the excess calories I've eaten. C. I have a regular habit of overeating during the night. It seems that my routine is not to be hungry in the morning but overeat in the evening. D. In my adult years, I have had week-long periods where I practically starve myself. This follows periods when I overeat. It seems I live a life of either feast or famine. Response Group 9: A Group 10 A. I usually am able to stop eating when I want to. I know when enough is enough. B. Every so often, I experience a compulsion to eat which I can't seem to control. C. Frequently, I experience strong urges to eat which I seem unable to control, but at other times I can control my eating urges. D. I feel incapable of controlling urges to eat. I have a fear of not being able to stop eating voluntarily. Response Group 10: A Group 11 A. I don't have any problem stopping eating when I feel full. B. I usually can stop eating when I feel full but occasionally overeat leaving me feeling uncomfortably stuffed. C. I have a problem stopping eating once I start and usually I feel uncomfortably stuffed after I eat a meal. D. Because I have a problem not being able to stop eating when I want, I sometimes have to induce vomiting to relieve my stuffed feeling. Response Group 11: B Group 12 A. I seem to eat just as much when I'm with others, Family social gatherings as when I'm by myself. B. Sometimes, when I'm with other persons, I don't eat as much as I want to eat because I'm self-conscious about my eating. C. Frequently, I eat only a small amount of food when others are present, because I'm very embarrassed about my eating. D. I feel so ashamed about overeating that I pick times to overeat when I know no one will see me. I feel like a closet eater. Response Group 12: B Group 13 A. I eat three meals a day with only an occasional between meal snack. B. I eat 3 meals a day, but I also normally snack between meals. C. When I am snacking heavily, I get in the habit of skipping regular meals. D. There are regular periods when I seem to be continually eating, with no planned meals. Response Group 13: B Group 14 A. I don't think much about trying to control unwanted eating urges. B. At least some of the time, I feel my thoughts are pre-occupied with trying to control my eating urges. C. I feel that frequently I spend much time thinking about how much I ate or about trying not to eat anymore. D. It seems to me that most of my waking hours are pre-occupied by thoughts about eating or not eating. I feel like I'm constantly struggling not to eat. Response Group 14: B Group 15 A. I don't think about food a great deal. B. I have strong craving for food but they last only for brief periods of time. C. I have days when I can't seem to think about anything else but food. D. Most of my days seem to be pre-occupied with thoughts about food. I feel like I live to eat. Response Group 15: B Group 16 A. I usually know whether or not I'm physically hungry. I take the right portion of food to satisfy me. B. Occasionally, I feel uncertain about knowing whether or not I'm physically hungry. A these times it's hard to know how much food I should take to satisfy me. C. Even though I might know how many calories I should eat, I don't have any idea what is a normal amount of food for me. Response Group 16: B Binge Eating Score: 16 Score less than 17 Minimal Risk Score between 18-26 Moderate Risk Score between 27-46 High Risk Assessment & Plan Assessment & Plan (1) Adjustment disorder: Code(s): F43.20 - Adjustment disorder, unspecified Qualifiers: Adjustment disorder type: with mixed anxiety and depressed mood Qualified Code(s): F43.23 - Adjustment disorder with mixed anxiety and depressed mood (2) Pre-bariatric surgery psychological evaluation: Code(s): Z71.89 - Other specified counseling Plan The patient was not cleared today as the assessment was not completed. She will return in 2-3 weeks to continue the evaluation. Next Appointment:?Scheduled for 03/27/2025 at 1:30 PM via Telehealth. Telehealth Telehealth Telehealth Platform: Telephone Location of provider rendering services: practice address Location of patient: address on file Patient Identification confirmed using: Name, : Yes Telehealth method: voice only Patient verbally consented to treatment: Yes Patient verbally consented to billing insurance company: Yes Patient informed of any privacy concerns related to visit: Yes Minutes spent on Phone/Video with Pt.: 55 Coding Level of Care Code New Pt Tele Psy Diag Eval (04538) Patient Type New Diagnoses Adjustment disorder with mixed anxiety and depressed mood F43.23 Adjustment disorder type: with mixed anxiety and depressed mood Pre-bariatric surgery psychological evaluation Z71.89 Time Spent (min) 55
--- OUTSIDE RECORDS SUMMARY | 2025-03-06 12:58 | XMS_ITS | Clinical Summary ---
Author Organization [facility] Address [address] [place] [address] Phone Care Team Providers Care Partner Name Role Phone Nkechi Pineda MD Primary Care Provider [phone] Allergies Active Allergy Reactions Criticality Noted Date Comments Meperidine Unknown 08/30/2024 Medications metoclopramide (REGLAN) 10 mg tablet Take 1 tablet (10 mg total) by mouth every 6 (six) hours for 7 days. 28 each 02/22/2025 5 ibuprofen (ADVIL,MOTRIN) 800 mg tablet Take 1 tablet by mouth every 6-8 hours as needed for pain. 30 tablet 02/22/2025 5 Encounters Date Type Department Care Team Description 02/22/2025 10:28 AM EDT - 02/22/2025 1:24 PM EDT Emergency [facility] Emergency [address] [place] [id number] Gab Herrera MD Migraine with status migrainosus, not intractable, unspecified migraine type (Primary Dx) Discharge Disposition: Home or Self Care from Last 3 Months Medical History Medical History Date Comments Migraine Social History Tobacco Use Types Packs/Day Years Used Date Smoking Tobacco: Never Smokeless Tobacco: Never Tobacco Cessation:Counseling Given: Not Answered Comments Unknown Sex and Gender Information Value Date Recorded Sex Assigned at Female 08/30/2024 12:33 PM EST Legal Sex Female 8:28 PM EST Gender Identity Female 08/30/2024 12:33 PM EST Sexual Orientation Straight 08/30/2024 12 :33 PM EST Obstetrics History Last Filed Vital Signs Vital Sign Reading Time Taken Comments Blood Pressure 95/55 02/22/2025 12:51 PM EDT Pulse 62 02/22/2025 12:51 PM EDT Temperature 36.6 ??C (97.9 ??F) 02/22/2025 12:51 PM E DT Respiratory Rate 20 02/22/2025 12:51 PM EDT Oxygen Saturation 100% 02/22/2025 12:51 PM EDT Inhaled Oxygen Concentration - - Weight 98.9 kg (218 lb) 02/22/2025 9:52 AM EDT Height 160 cm (5' 3 ) 02/22/2025 9:52 AM EDT Body Mass Index 38.62 02/22/2025 9:52 AM EDT Plan of Treatment Health Maintenance Due Date Last Done Comments Hepatitis B Vaccines (1 of 3 - 19+ 3-dose series) 2007 Cervical Cancer Screening: P ap Smear 2009 Depression Screening 10/29/2023 HIV Screening 10/29/2023 Hepatitis C Screening 10/29/2023 Social Influencers of Health Screening 10/29/2023 COVID-19 Vaccine (2023-2 5 season) 2024 12/12/2021, 09/19/2021 Influenza Vaccine (Season Ended) 2025 07/21/2015 DTaP,Tdap,and Td Vaccines (2 - Td or Tdap) 01/25/2029 01/25/2019 HIB Vaccines Aged Out No longer eligi ble based on patient's age to complete this topic HPV Vaccines Aged Out No longer eligi ble based on patient's age to complete this topic Hepatitis A Vaccines Aged Out No long er eligible based on patient's age to complete this topic IPV Vaccines Aged Out No longer eligi ble based on patient's age to complete this topic MMR Vaccines Aged Out No longer eligi ble based on patient's age to complete this topic Meningococcal ACWY Vaccine Aged Out N o longer eligible based on patient's age to complete this topic Meningococcal B Vaccine Aged Out No l onger eligible based on patient's age to complete this topic Pneumococcal Vaccine: Pediatrics (0 to 5 Years) and At-Risk Patients (6 to 64 Years) Aged Out No longer eligible b ased on patient's age to complete this topic RSV Immunization Patients Under 20 months Aged Out No longer eligible b ased on patient's age to complete this topic Varicella Vaccines Aged Out No longer eligible based on patient's age to complete this topic Procedures Procedure Name Priority Date/Time Associated Diagnosis Comments POC , URINE DIAGNOSTIC STAT 02/22/2025 10:39 AM EDT from Last 3 Months Results * POC , urine manually resulted (02/22/2025 10:39 AM EDT) HCG, Ur POC Negative Negative POC hCG Int QC Pass? Yes Yes Urine Urine specimen obtained by clean catch procedure / Unknown 02/22/2025 10:39 AM EDT Gab Herrera MD POINT OF CARE TEST ENTER/EDIT ORDERABLES Final Result from Last 3 Months Insurance [facility] Care Teams Partner Relationship Specialty Start Date End Date Nkechi Pineda MD [phone] [facility] KIRSTIN Jimenez [phone] PCP - General Internal Medicine 08/30/24
== END 2025-03-06 11:58 | disposition home or self-care (01) ==
LOC: HO.HBST 11:17
PROVIDERS: PCP Internal Medicine; Visit Provider Counselor Mental Health
DX: F43.23 Adjustment disorder with mixed anxiety and depressed mood (principal); Z71.89 Other specified counseling
CPT/HCPCS: 90791

== ENCOUNTER 2025-03-07 10:58 | Outpatient (REF) | payer OTHER, SELFPAY ==
[2025-03-07 16:31] LABS: Bacterial Vaginosis PCR NEGATIVE (Negative); Candida Group PCR NOT DETECTED (Not Detect); Candida glab krusei PCR NOT DETECTED (Not Detect); Trichomonas vaginalis PCR NOT DETECTED (Not Detect)
[2025-03-07 17:01] LABS: CT PCR NOT DETECTED (Not Detect.); NG PCR NOT DETECTED (Not Detect.)
== END 2025-03-07 10:59 | disposition home or self-care (01) ==
LOC: HO.LNP 10:58
PROVIDERS: PCP Internal Medicine; Visit Provider Advanced Practice Midwife
DX: Z20.2 Contact with and (suspected) exposure to infections with a predominantly sexual mode of transmission (principal); G43.009 Migraine without aura, not intractable, without status migrainosus; Z30.41 Encounter for surveillance of contraceptive pills; R30.0 Dysuria
CPT/HCPCS: 81002; 81025; 81515; 87491; 87591; 99212

== ENCOUNTER 2025-03-07 10:58 | Outpatient (AMB) | payer OTHER, SELFPAY ==
--- NOTE | 2025-03-07 11:14 | A.OFFVIS_ITS ---
Vital Signs 03/07/25 11:58 Height 5 ft 3 in Weight 218 lb BMI 38.6 BP 108/70 Intake Visit Reasons: STD Check up Intake Note: Per patient, NO complaints. Patient states wanted STD testing due to not having testing in many years. Denied pain, burning, discharge when asked. Lead Network Engineer Required: Yes Lead Network Engineer Language: Supervisor Shipfitters Services: Lead Network Engineer Present ([employer] ) Lead Network Engineer Name: Gino Ibarra Information Interpreted: clinical only Fashion Illustrator: Fashion Illustrator Present ([employer]) Accompanied by: Self / Same As Patient Allergies meperidine [From DEMEROL] Allergy (Unknown, Verified 03/07/25 11:28) SWELLING, ITCHY HPI Comments Details: Patient is here today for STD testing. She reports some burning w/urination last week, with some frequency of urination. Currently taking Riya and has no problem with the medication including side effects or missed pills. She has a history of migraines without aura. She is a nonsmoker. [facility] Medical History (Updated 03/07/25 @ 12:02 by Claudia Murry CNM) Dysuria Surveillance for control, oral contraceptives Possible exposure to STD Migraine without aura Hypothyroidism BMI 38.0-38.9,adult Obesity Recurrent headache Depression with anxiety History of anemia Vitamin D deficiency Depressed Surgical History History of loop electrical excision procedure (LEEP) Hx of cholecystectomy Family History Mother HTN (hypertension) Diabetes Father HTN (hypertension) Social History Housing: Apartment Alcohol intake: never Patient Tobacco Use Status: Former Tobacco user Tobacco use type: Cigarette e-Cigarette/Vaping Use: Never Used service: No Current occupational status: unemployed Current occupational exposures/hazards: No Gender identity: Female Cognitive needs: No Hearing needs: No Vision needs: No Female Reproductive History Menstrual Age of Menarche: 9 Review of Systems Const All systems reviewed & are unremarkable except as noted in HPI and below Physical Exam Vital Signs: Last Vital Signs BP 108/70 03/07/25 11:58 BMI result Body Mass Index 38.6 Const General: cooperative, healthy appearing and no acute distress Orientation/consciousness: patient oriented x3 GI Inspection: Yes normal to inspection Palpation (GI): Soft to palpation and Other GI palpation findings present (Nontender) Rectal Exam - Female: visual inspection normal General: Yes bladder normal to palpation External Female Exam: normal appearance of the urethra Speculum Exam - Vagina: normal appearance of the vagina, normal palpation and normal vaginal discharge Speculum Exam - Cervix: normal appearance of the cervix, normal palpation and Other cervical findings present (Post LEEP appearance) Bimanual exam- vagina & uterus: normal bimanual exam, normal palpation, uterine size normal, bladder normal to palpation, normal palpation, uterine shape normal and non-tender Bimanual Exam- Adnexa, other: normal adnexae Neuro General: patient oriented x3 Results AMB Urinalysis Dipstick UR Leukocytes Negative Last Edit by Elizabeth Gudino CMA on 03/07/25 12:23 UR Nitrite Negative Last Edit by Elizabeth Gudino, ATHLETIC FIELD CUSTODIAN on 03/07/25 12:23 UR Urobilinogen Normal Last Edit by Elizabeth Gudino, LEON on 03/07/25 12:23 UR Protein Trace Last Edit by Elizabeth Gudino, ATHLETIC FIELD CUSTODIAN on 03/07/25 12:23 UR Ph 6.0 Last Edit by Elizabeth Gudino, ATHLETIC FIELD CUSTODIAN on 03/07/25 12:23 UR Blood Negative Last Edit by Elizabeth Gudino, ATHLETIC FIELD CUSTODIAN on 03/07/25 12:23 UR Specific [place] 1.020 Last Edit by Elizabeth Gudino, ATHLETIC FIELD CUSTODIAN on 03/07/25 12:23 UR Ketone Negative Last Edit by Elizabeth Gudino, ATHLETIC FIELD CUSTODIAN on 03/07/25 12:23 UR Bilirubin Negative Last Edit by Elizabeth Gudino, ATHLETIC FIELD CUSTODIAN on 03/07/25 12:23 UR Glucose Negative Last Edit by Elizabeth Gudino, ATHLETIC FIELD CUSTODIAN on 03/07/25 12:23 AMB Test Urine AMB Test Urine Negative Last Edit by Elizabeth Gudino CMA on 12:28 Results Reviewed Results Reviewed: Laboratory Last Values Urine pH (Clinic) 6.0 03/07/25 12:23 Specific [place] (Clinic) 1.020 03/07/25 12:23 Ur Protein (Clinic) Trace 03/07/25 12:23 Ur Ketones (Clinic) Negative 03/07/25 12:23 Urine Blood (Clinic) Negative 03/07/25 12:23 Urine Nitrite Negative 03/07/25 12:23 Urine Bilirubin (Clinic) Negative 03/07/25 12:23 Urobilinogen (Clinic) Normal 03/07/25 12:23 Leukocyte Esterase (Clinic) Negative 03/07/25 12:23 Urine Glucose (Clinic) Negative 03/07/25 12:23 Tst Clinic Negative 03/07/25 12:28 Assessment & Plan Assessment & Plan (1) Migraine without aura: Comment: Neurologist-Dr. Johnson Code(s): G43.009 - Migraine without aura, not intractable, without status migrainosus Category: Medical Qualifiers: Status migrainosus presence: without status migrainosus Plan: Discussed options with migraines. (2) Possible exposure to STD: Code(s): Z20.2 - Contact with and (suspected) exposure to infections with a predominantly sexual mode of transmission Category: Medical Plan: GC chlamydia and BV panel obtained await results for plan of care. (3) Surveillance for control, oral contraceptives: Code(s): Z30.41 - Encounter for surveillance of contraceptive pills Category: Medical Plan: Reviewed efficacy of progesterone only pills versus estrogen and progesterone come mind, she is happy continuing on the brand currently. Advised to use a backup method such as a condom. Multiple refills available on her control. The patient expressed understanding and agreement with the plan of care. All of her questions and concerns were addressed to the best of my ability. (4) Dysuria: Code(s): R30.0 - Dysuria Category: Medical Plan: Urine dip completed not indicating infection. UPT is negative. Plan This note is constructed using voice recognition software. While every effort has been made to ensure accuracy, psychiatric nurse errors may have been included. Orders: Orders AMB HCG Urine Test Today Z32.02 - Encounter for test, result negative CT NG by PCR Today Z20.2 - Contact with and (suspected) exposure to infections with a predominantly sexual mode of transmission Bacterial Vaginosis Panel Today Z20.2 - Contact with and (suspected) exposure to infections with a predominantly sexual mode of transmission AMB Urinalysis Dipstick Today R30.0 - Dysuria Coding Level of Care Code Est Pt Level 3 (48290) Diagnoses Migraine without aura G43.009 Status migrainosus presence: without status migrainosus Possible exposure to STD Z20.2 Surveillance for control, oral contraceptives Z30.41 Dysuria R30.0
[2025-03-07 11:58] VITALS: BP 108/70; BMI 38.6
--- OUTSIDE RECORDS SUMMARY | 2025-03-07 12:09 | XMS_ITS | Clinical Summary ---
Author Organization [facility] Address [address] [place] [address] Phone Care Team Providers Care Graphic Design Manager Name Role Phone Nkechi Pineda MD Primary Care Provider [phone] Allergies Active Allergy Reactions Criticality Noted Date [...] EDT - 02/22/2025 1:24 PM EDT Emergency [facility] Emergency [address] [place] [id number] Gab Herrera MD Migraine with status migrainosus, [...] Final Result from Last 3 Months Insurance [facility] Care Teams Graphic Design Manager Relationship Specialty Start Date End Date Nkechi Pineda MD [address] [facility] KIRSTIN Jimenez [id number] PCP - General Internal Medicine 08/30/24
== END 2025-03-07 13:59 | disposition home or self-care (01) ==
LOC: HO.HWS 11:13
PROVIDERS: PCP Internal Medicine; Visit Provider Advanced Practice Midwife
DX: G43.009 Migraine without aura, not intractable, without status migrainosus (principal); Z20.2 Contact with and (suspected) exposure to infections with a predominantly sexual mode of transmission; Z30.41 Encounter for surveillance of contraceptive pills; R30.0 Dysuria; Z32.02 Encounter for pregnancy test, result negative
CPT/HCPCS: 99213

== ENCOUNTER 2025-03-14 07:13 | Day surgery (SDC) | payer OTHER, SELFPAY ==
[2025-03-12 10:22] VITALS: BMI 38.8
--- NOTE | 2025-03-12 12:29 | HO.ANESPROP2 ---
Documented by User: Ankita Rodriguez NP 03/12/25 12:30 HPI - Anesthesia Eval Consult details Narrative: 34yo F for Upper Endoscopy PMFSH Active Problems Active Problems: All Active Problems Dysuria (Acute) Surveillance for control, oral contraceptives (Acute) Possible exposure to STD (Acute) Migraine without aura (Acute) Hypothyroidism (Acute) Vitamin B12 deficiency (Acute) BMI 38.0-38.9,adult (Acute) Obesity (Acute) Recurrent headache (Acute) Strain of left triceps (Acute) Acute headache (Acute) Depression with anxiety (Acute) Obesity (BMI 35.0-39.9 without comorbidity) (Acute) control counseling (Acute) Vitamin D deficiency (Acute) Infertility counseling (Acute) Vertigo (Acute) Migraines (Acute) Obesity (BMI 30.0-34.9) (Acute) History of loop electrical excision procedure (LEEP) (Acute) Polycystic bilateral ovaries (Acute) Hx of abnormal cervical Pap smear (Acute) Obesity, morbid, BMI 40.0-49.9 (Acute) Menorrhagia, premenopausal (Acute) Past Medical History Medical History Dysuria Surveillance for control, oral contraceptives Possible exposure to STD Migraine without aura Hypothyroidism BMI 38.0-38.9,adult Obesity Recurrent headache Depression with anxiety History of anemia Vitamin D deficiency Depressed Family History Family History Mother HTN (hypertension) Diabetes Father HTN (hypertension) Surgical History Surgical History History of loop electrical excision procedure (LEEP) Hx of cholecystectomy Social History Social History Housing: Apartment Alcohol intake: never Patient Tobacco Use Status: Former Tobacco user Tobacco use type: Cigarette e-Cigarette/Vaping Use: Never Used Advance Directives: No Advance Directives Information Provided: Yes service: No Current occupational status: unemployed Current occupational exposures/hazards: No Gender identity: Female Cognitive needs: No Hearing needs: No Vision needs: No Meds Allergies Allergy/AdvReac Type Severity Reaction Status Date / Time meperidine [From DEMEROL] Allergy Unknown SWELLING, Verified 03/07/25 11:28 ITCHY Exam Height,Weight and Vital Signs: Height 5 ft 3 in Weight 99.337 kg Assessment and Plan Assessment Anesthesia Assessment: Chart Reviewed Documented by User: Aleksandra Miles MD 03/14/25 08:07 PMFSH Past Medical History Medical History Dysuria Surveillance for control, oral contraceptives Possible exposure to STD Migraine without aura Hypothyroidism BMI 38.0-38.9,adult Obesity Recurrent headache Depression with anxiety History of anemia Vitamin D deficiency Depressed Family History Family History Mother HTN (hypertension) Diabetes Father HTN (hypertension) Surgical History Surgical History History of loop electrical excision procedure (LEEP) Hx of cholecystectomy History of Problems with Anesthesia: No Social History Social History Housing: Apartment Alcohol intake: never Patient Tobacco Use Status: Former Tobacco user Tobacco use type: Cigarette e-Cigarette/Vaping Use: Never Used Advance Directives: No Advance Directives Information Provided: Yes service: No Current occupational status: unemployed Current occupational exposures/hazards: No Gender identity: Female Cognitive needs: No Hearing needs: No Vision needs: No Meds Allergies Allergy/AdvReac Type Severity Reaction Status Date / Time meperidine [From DEMEROL] Allergy Unknown SWELLING, Verified 03/07/25 11:28 ITCHY Exam Airway Mallampati Class: II TM Dist: >3cm Neck ROM: Full Loose/Missing/Broken Teeth: No Heart: RRR Lungs: CTA Assessment and Plan Assessment Anesthesia Assessment: Anesthesia Plan Discussed Final Anesthetic Review History of Problems with Anesthesia: No NPO: Yes ASA Class: II Final Preanesthetic Review: Meds/Allgs Chart Reviewed, Consent Obtained/Reviewed and Anes Risks/Benef Reviewed Patient Risk: Low Procedure Risk: Intermediate Anesthetic Plan Anesthetic Plan: MAC: Disposition: Standard PACU
[2025-03-14 07:19] VITALS: BMI 38.0
[2025-03-14 07:31] LABS: UPreg QC Valid YES; Urine Pregnancy NEGATIVE (NEGATIVE)
[2025-03-14 07:32] VITALS: BP 106/64; PULSE 73; RESP 16; TEMP 36.7; O2SAT 100
[2025-03-14] MEDS: Lactated Ringers 1,000 ML 80 ML IVCONT (07:44)
--- NOTE | 2025-03-14 08:25 | MHC.SHP ---
Pre-Procedural Eval Section A - 24 Hr Update-Section A only Date of Service: 03/14/25 The patient is an INPATIENT: No The patient has been examined within 24 hours of the surgical procedure. The History & Physical has been completed within 30 days and I have reviewed it.: No Section B - Complete if H&P > 30 days Chief Complaint: Morbid (severe) obesity due to excess calories Relevant Family History (Specify if Yes): No Relevant Social History: None Present Medications: None Medical History: No relevant PMH History of Previous Operations: No relevant previous surgery Allergies: Allergies Allergy/AdvReac Type Severity Reaction Status Date / Time meperidine [From DEMEROL] Allergy Unknown SWELLING, Verified 03/07/25 11:28 ITCHY Review of Systems Sugical H&P ROS: Negative: Constitution, Cardiovascular, Respiratory, Neurological, Psychiatric, Hem-Onc, Allergic/Immunologic, Gastrointestinal, Genitourinary, Musculoskeletal, Integumentary, Endocrine and Eyes/Ears/Nose/Throat Exam Surgical H&P Exam: Normal: HEENT, Normal: Heart, Normal: Lungs, Normal: Extremities, Normal: Abdomen, Normal: Skin and Normal: Neurological Plan Diagnosis/Plan: Unchanged (EGD to assess the stomach's anatomy. Risks of bleeding and perforation were discussed with the patient and she is in agreement with the plan.) I have reviewed the history and physical and performed a pertinent physical examination on my patient. No changes have occurred unless specified. Time Spent With Patient Time: Total time managing care of this patient today ____ minutes.
--- NOTE | 2025-03-14 08:28 | PM.OP ---
Brief Operative Note Date of Service: 03/14/25 Pre-op diagnosis: Morbid obesity Post-op diagnosis: same Procedure: PROCEDURE DATE: 03/14/2025 PREOPERATIVE DIAGNOSIS: GERD POSTOPERATIVE DIAGNOSIS: ?Same as above. 1) small hiatal hernia PROCEDURE: [id number] with biopsies Surgeon: ?Homer Farrell M.D.. Ph.D. Gatehouse Attendant: None ? Anesthesia: IV sedation Estimated blood loss: ?Minimal FINDINGS AND PROCEDURE: ? OPERATIVE INDICATIONS: ?The patient is a 34 year old female known to me who is interested in bariatric surgery. Based on this information I recommended an upper endoscopy to evaluate the stomach's anatomy. Risks and complications of the surgery were discussed with the patient in advance particularly the possibility of perforation or bleeding that may require surgical intervention. The patient understood the risks and was in agreement with the plan. ? PROCEDURE: After informed consent was obtained by the patient, the patient was ?transferred to the Operating Room and was placed in the supine position.? After successful induction of IV sedation, a mouth block was inserted and the patient was placed in the left lateral decubitus position. An upper endoscopy was performed next, the oropharynx and esophagus appeared within the normal limits. There was a small 2-3cm hiatal hernia. The z-line was smooth. Two biopsies were obtained from the distal esophagus 2-3 cm proximal to the GE junction and two additional biopsies from the GE junction. The stomach was entered and it appeared to be of normal size. There was no gastritis. There was no stricture or ulcer. A biopsy was obtained from the gastric fundus and the antrum. No significant bleeding was noted from any of the biopsy sites. Retroflexion of the scope confirmed the presence of a small diaphragmatic hernia. The scope was then advanced into the duodenum which appeared to be normal as well. At that point the duodenum ?and the stomach were decompressed and the scope was withdrawn from the patient's mouth. The patient extubated and was transferred in stable condition to the Recovery Room for further care. I was present and performed all steps of the procedure. There were no residents to assist with this case. Homer Farrell M.D., Ph.D. Surgeon: Steve Farrell MD Anesthesia: MAC Was an Gatehouse Attendant used for this Procedure?: No Estimated blood loss (mL): 0 IV fluids (mL): 400 Urine output (mL): 0 (No Luis to record output) Pathology: other (1) antrum x1, 2) fundus x1, 3) GE junction x2, 4) distal esophagus x2) Condition: stable Disposition: PACU
[2025-03-14 08:42] VITALS: BP 109/79; PULSE 90; RESP 12; TEMP 36.1; O2SAT 98
[2025-03-14 08:57] VITALS: BP 109/71; PULSE 73; RESP 14; O2SAT 98
[2025-03-14 09:11] VITALS: BP 112/68; PULSE 66; RESP 16; TEMP 36.1; O2SAT 99
== END 2025-03-14 09:46 | disposition home or self-care (01) ==
PROVIDERS: Nurse Practitioner; PCP Internal Medicine; Visit Provider Surgery
PROC: 0DJ08ZZ Inspection of Upper Intestinal Tract, Via Natural or Artificial Opening Endoscopic (ICD-10-PCS; CPT 43235; principal; 2025-03-14 08:10)
DX: K21.9 Gastro-esophageal reflux disease without esophagitis (principal); E66.01 Morbid (severe) obesity due to excess calories; Z68.38 Body mass index [BMI] 38.0-38.9, adult; K44.9 Diaphragmatic hernia without obstruction or gangrene; E55.9 Vitamin D deficiency, unspecified; R51.9 Headache, unspecified; F41.8 Other specified anxiety disorders; E28.2 Polycystic ovarian syndrome; Z88.5 Allergy status to narcotic agent; Z90.49 Acquired absence of other specified parts of digestive tract; Z87.891 Personal history of nicotine dependence; Z56.0 Unemployment, unspecified
CPT/HCPCS: 43239; 81025; 88305; 88313; 88342; J2003; J2704

== ENCOUNTER → 2025-03-14 07:13 | Outpatient (BNV) | payer OTHER, SELFPAY | PROVIDERS: PCP Internal Medicine; Visit Provider Surgery | DX: K44.9 Diaphragmatic hernia without obstruction or gangrene (principal) | CPT/HCPCS: 43239 ==

== ENCOUNTER 2025-03-27 13:59 | Outpatient (AMB) | payer OTHER, SELFPAY ==
--- NOTE | 2025-03-27 13:45 | A.OFFWM_ITS ---
Intake Intake Visit Reasons: VIDEO BH Intake Part 2 Allergies meperidine (From DEMEROL) Allergy (Unknown, Verified 04/06/25 16:20) SWELLING, ITCHY PFSH Medical History Dysuria Surveillance for control, oral contraceptives Possible exposure to STD Migraine without aura Hypothyroidism BMI 38.0-38.9,adult Obesity Recurrent headache Depression with anxiety History of anemia Vitamin D deficiency Depressed Surgical History History of loop electrical excision procedure (LEEP) Hx of cholecystectomy Family History Mother HTN (hypertension) Diabetes Father HTN (hypertension) Social History Housing: Apartment Alcohol intake: never Patient Tobacco Use Status: Former Tobacco user Tobacco use type: Cigarette e-Cigarette/Vaping Use: Never Used Advance Directives: No Advance Directives Information Provided: No service: No Current occupational status: unemployed Current occupational exposures/hazards: No Gender identity: Female Cognitive needs: No Hearing needs: No Vision needs: No Female Reproductive History Menstrual Age of Menarche: 9 Behavioral Health Assessment Weight Management Therapy Therapy Notes Details The patient is a 34-year-old female presenting for a second visit to complete the behavioral health assessment as part of a surgical weight loss program. She was referred by her primary care provider due to obesity and related physical health challenges. The patient has a history of counseling and outpatient psychiatric treatment for depression and anxiety through [facility]. Her case was closed in August 2024. She does not recall the names of her most recent prescribed medications. She denies any history of psychiatric hospitalization, mental health crises, or emergency interventions. She also denies any current or past suicidal ideation (SI), suicide attempts (SA), self-harm, thoughts of harming others, or substance use. There is no indication of emotional or stress-related eating. Scores from the Binge Eating Scale (BES) indicate low risk for disordered eating, and PHQ-9 results do not reflect active depressive symptoms. The mental status exam is within normal limits, with no signs of cognitive or functional impairment. At this time, the patient is cleared from a behavioral health perspective to proceed with the surgical weight loss program. Presenting Concerns Referral Source WMP-Provider Reason for referral Completion of behavioral health assessment as part of process for weight-loss surgery. Precipitating Event Obesity Living Situation Current Living Situation Friend's Home and Rent At risk of losing current housing? No Satisfied with current living situation? No Comments PT lives with in a room she rents at a friends' home 3 months ago. She lost her apartment about 5 months ago, was living in a hotel for 2 months, now living in a friend's home. Food/Weight/Diet Expectations of change Initial goal to lose 10% of her weight before surgery, which is about 20lbs. Ultimate weight goal: 200lbs before surgery PT started the program on 02/02/2025 at 219Lbs (Weight check malou), however, she gained weight after the initial weight check and was at 224Lbs on 02/12/2025. Weight as of 03/05/2025: 216Lbs. Recent weight as of 03/26/2025: 215Lbs. PT is implementing the following: Current meal plan: 2 protein shakes, 2 protein bars, and one meal per day (7F/7F). Exercise plan: Outdoor walks Scale: Yes Communication with provider. Yes. Mondays. History/Relationship with food PT reports her diet was high in carbs and foods that contain refined/added sugar She would eat more candy than usual around her period. PT thinks she was very disorganized with food, she was used to skipping meals, then would snack a lot on sweets or chips and would have 1 meal meal a day, and often would also eat fast food either for lunch or after dinner late at night. Example of meals before starting the program: Breakfast: Skip most of the time. When I had breakfast it would be something like, oatmeal or scrambled eggs. Lunch: Skip. If we ate fast food like [employer]. Dinner: @5-6 pm. Rice, beans, pork chops, or any other type of meat. Snacks: multiple at the day in between meals. chips/Doritos, chocolate, fried foods (empanadillas), icecream. Drinks/Liquids: Coffee: 1 at day, from Mike, 4 cream and 4 sugar. Soda: none. Juice: 3-4 bottles a day. Tea: None. Energy Drinks: None. History/Relationship with weight PT denies having been overweight or obese in childhood. She started steady weight gain after age 14 when she moved out with her boyfriend and engaged in unhealthy/disorganized eating. Also, she gained sustained weight with her first as she had twins; she was over 200Lbs post-. In the last 10 years, the patient's Lowest weight was 160Lbs and highest 275Lbs History/Relationship with dieting In the past, it has engaged in episodes of restriction and then binge eating. Portion control. OTC pills - Binge Eating Do you frequently eat large amounts of food in short periods of time, not feeling physically hungry? Yes Do you feel out of control when you eat a large amount of food in a short period of time? Yes Do you eat large amounts of food rapidly and typically alone? No Night Eating Do you wake up at least once during the night to eat? No If you wake up in the night, do you find that it is necessary to eat something in order to fall back asleep? No Do you have little or no appetite in the morning and feel very hungry in the evening, often overeating between dinner and when you go to bed? Yes Social History Family history and relationship PT is a single mother of 3. She from her youngest son a few months ago. Currently dating. She has twin girls who are 9 years old and a 5 year old boy. 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 Developmental history and status None reported in the past. Currently WNL. Social support Boyfriend, friend Community support PCP who referred here. Jewish/Spirituality None. Cultural/Ethnic information . Born in [place]. She has been living in [place] about 10 years ago. Legal Involvement and History Current or historical involvement with the legal system? Housing court case - closed 2 months. Education Highest grade completed 10th Preferred learning style Learn by doing and Visual Currently enrolled in educational program? No Interested in further educational program? No Employment Employment Status Unemployed (Since July 2024.) Wants help to find employment? No Meaningful activities Reading, outdoor walks, going to the cinema or watching movies. Financial Situation Describe current financial situation Often struggles with finance Financial assistance? Food [place] and [employer]AF[employer] Service Service? No Mental Health and Addiction Treatment Current/Past substance abuse? No Comments Alcohol: 1 time ever 2-3 months, 1-2 beers. Cigarettes/Tobacco: none Vaping: None Cannabis/Edibles: None. Current/Past addictive behavior concerns? No Psychiatric history PT reports she has been in counseling and outpatient psyc hiatric tx due to depression and anxiety at [facility]. Her case was closed in August/2024. PT doesn't remember the name of the last medications she got prescribed. PT reports she has never been hospitalized for MH or in crisis. Also denies any history or recent concerns around SI/Sa, self-harm, other harm. Medical and Physical Health Summary Additional Medical History not covered in history None Sexual History concerns None reported. Physical exam in the last year? No Pain Screening Current pain? Yes Pain in the last few months? Yes Comments Knee and back pain. Also has migraines (frequent headaches). Medications Is the patient compliant with medications? Yes Does the patient have Villalba Guardian in place? Not applicable Does the patient use complimentary health approaches? No Trauma/Abuse History History of trauma? No Questionnaires PHQ-9 Over the last 2 weeks, how often have you been bothered by any of the following problems? 1. Little interest or pleasure in doing things: several days 2. Feeling down, depressed, or hopeless: several days 3. Trouble falling or staying asleep, or sleeping too much: not at all 4. Feeling tired or having little energy: several days 5. Poor appetite or overeating: not at all 6. Feeling bad about yourself - or that you are a failure or have let yourself or your family down: several days 7. Trouble concentrating on things, such as reading the newspaper or watching television: not at all 8. Moving or speaking so slowly that other people could have noticed. Or the opposite - being so fidgety or restless that you have been moving around a lot more than usual: not at all 9. Thoughts that you would be better off or of hurting yourself in some way: not at all Total score: 4 Depression Screening Interpretation: Positive (Low scores. PT reports this is related to issues with her living situation and finances. ) Depression Screening Done: Yes 52925 - PHQ-9 Billing: Yes Source: Developed by Drs. Josh Hightower, Monica Vickers, Neil Pierson and colleagues, with an educational anca from [employer]. Binge Eating Scale Group 1 A. I don't feel self-conscious about my wt. or body size when I'm with others. B. I feel concerned about how I look to others, but it normally does not make me fell disappointed with myself C. I do get self-conscious about my appearance and wt. which makes me feel disappointed in myself. D. I feel very self-conscious about my wt. and frequently I feel intense shame and disgust for myself. I try to avoid social contacts because of my self- consciousness. Response Group 1: C Group 2 A. I don't have any difficulty eating slowly in the proper manner. B. Although I seem to gobble down foods, I don't end up feeling stuffed because of eating to much. C. At times, I tend to eat quickly and then, I feel uncomfortably full afterwards. D. I have the habit of bolting down my food, without really chewing it. When this happens I usually feel uncomfortably stuffed because I've eaten to much. Response Group 2: C Group 3 A. I feel capable to control my eating urges when I want to. B. I feel like I have failed to control my eating more than the average person. C. I feel utterly helpless when it comes to feeling in control of my eating urges. D. Because I feel so helpless about controlling my eating I have become very desperate about trying to get control. Response Group 3: C Group 4 A. I don't have the habit of eating when I'm bored. B. I sometimes eat when I'm bored, but often I'm able to get busy and get my mind off food. C. I have a regular habit of eating when I'm bored, but occasionally, I can use some other activity to get my mind off eating. D. I have a strong habit of eating when I'm bored. Nothing seems to help me breath the habit. Response Group 4: B Group 5 A. I'm usually physically hungry when I eat something. B. Occasionally, I eat something on impulse even though I really am not hungry. C. I have the regular habit of eating foods, that I might not really enjoy, to satisfy a hungry feeling even though physically, I don't need the food. D. Although I'm not physically hungry, I get a hungry feeling in my mouth that only seems to be satisfied when I eat a food, like sandwich, that fills my mouth. Sometimes, when I eat the food to satisfy my mouth hunger, I then spit the food out so I won't gain weight. Response Group 5: B Group 6 A. I don't feel any guilt or self-hate after I overeat. B. After I overeat, occasionally I feel guilt or self-hate. C. Almost all the time I experience strong guilt or self-hate after I overeat. Response Group 6: B Group 7 A. I don't lose total control of my eating when dieting even after periods when I overeat. B. Sometimes when I eat a forbidden food on a diet, I feel like I blew it and eat even more. C. Frequently, I have the habit of saying to myself, I've blown it now, why not go all the way, when I overeat on a diet. When that happens I eat more. D. I have a regular habit of starting a strict diets for myself but I break the diets by going on an eating binge. My life seems to be either a feast or famine. Response Group 7: A Group 8 A. I rarely eat so much food that I feel uncomfortably stuffed afterwards. B. Usually about once a month, I each such a quantity of food, I end up feeling very stuffed. C. I have regular periods during the month when I eat large amounts of food, either at mealtime or at snacks. D. I eat so much food that I regularly feel quite uncomfortable after eating and sometimes a bit nauseous. Response Group 8: B Group 9 A. My level of calorie intake does not go up very high or go down very low on a regular basis. B. Sometimes after I overeat, I will try to reduce my caloric intake to almost nothing to compensate for the excess calories I've eaten. C. I have a regular habit of overeating during the night. It seems that my routine is not to be hungry in the morning but overeat in the evening. D. In my adult years, I have had week-long periods where I practically starve myself. This follows periods when I overeat. It seems I live a life of either feast or famine. Response Group 9: A Group 10 A. I usually am able to stop eating when I want to. I know when enough is enough. B. Every so often, I experience a compulsion to eat which I can't seem to control. C. Frequently, I experience strong urges to eat which I seem unable to control, but at other times I can control my eating urges. D. I feel incapable of controlling urges to eat. I have a fear of not being able to stop eating voluntarily. Response Group 10: A Group 11 A. I don't have any problem stopping eating when I feel full. B. I usually can stop eating when I feel full but occasionally overeat leaving me feeling uncomfortably stuffed. C. I have a problem stopping eating once I start and usually I feel uncomfortably stuffed after I eat a meal. D. Because I have a problem not being able to stop eating when I want, I so metimes have to induce vomiting to relieve my stuffed feeling. Response Group 11: B Group 12 A. I seem to eat just as much when I'm with others, Family social gatherings as when I'm by myself. B. Sometimes, when I'm with other persons, I don't eat as much as I want to eat because I'm self-conscious about my eating. C. Frequently, I eat only a small amount of food when others are present, because I'm very embarrassed about my eating. D. I feel so ashamed about overeating that I pick times to overeat when I know no one will see me. I feel like a closet eater. Response Group 12: B Group 13 A. I eat three meals a day with only an occasional between meal snack. B. I eat 3 meals a day, but I also normally snack between meals. C. When I am snacking heavily, I get in the habit of skipping regular meals. D. There are regular periods when I seem to be continually eating, with no planned meals. Response Group 13: B Group 14 A. I don't think much about trying to control unwanted eating urges. B. At least some of the time, I feel my thoughts are pre-occupied with trying to control my eating urges. C. I feel that frequently I spend much time thinking about how much I ate or about trying not to eat anymore. D. It seems to me that most of my waking hours are pre-occupied by thoughts about eating or not eating. I feel like I'm constantly struggling not to eat. Response Group 14: B Group 15 A. I don't think about food a great deal. B. I have strong craving for food but they last only for brief periods of time. C. I have days when I can't seem to think about anything else but food. D. Most of my days seem to be pre-occupied with thoughts about food. I feel like I live to eat. Response Group 15: B Group 16 A. I usually know whether or not I'm physically hungry. I take the right portion of food to satisfy me. B. Occasionally, I feel uncertain about knowing whether or not I'm physically hungry. A these times it's hard to know how much food I should take to satisfy me. C. Even though I might know how many calories I should eat, I don't have any idea what is a normal amount of food for me. Response Group 16: B Binge Eating Score: 16 Score less than 17 Minimal Risk Score between 18-26 Moderate Risk Score between 27-46 High Risk Assessment & Plan Assessment & Plan (1) Adjustment disorder: Code(s): F43.20 - Adjustment disorder, unspecified (2) Pre-bariatric surgery psychological evaluation: Code(s): Z71.89 - Other specified counseling Plan The patient has been cleared from a behavioral health standpoint and can be submitted for insurance approval when ready. A follow-up behavioral health visit will be scheduled 1?4 weeks postoperatively to assess psychological adjustment and screen for any concerns. Next appointment: 1-4 Weeks Post-op. Telehealth Telehealth Telehealth Platform: [facility] Location of provider rendering services: practice address Location of patient: address on file Patient Identification confirmed using: Name, : Yes Telehealth method: video Patient verbally consented to treatment: Yes Patient verbally consented to billing insurance company: Yes Patient informed of any privacy concerns related to visit: Yes Minutes spent on Phone/Video with Pt.: 60 Coding Level of Care Code Established Pt Tele Psytx >53 mins (17294) Patient Type Established Diagnoses Adjustment disorder F43.20 Pre-bariatric surgery psychological evaluation Z71.89 Additional Codes PHQ-9 - 40910 - PHQ-9 Billing: Yes ([id number]) Time Spent (min) 60
--- OUTSIDE RECORDS SUMMARY | 2025-03-27 16:57 | XMS_ITS | Clinical Summary ---
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 Name Role Phone Nkechi Pineda MD Primary Care Provider Allergies Active Allergy Reactions Criticality Noted Date [...] EDT - 02/22/2025 1:24 PM EDT Emergency [facility] Emergency [address] [place] [id number] Gab Herrera MD Migraine with status migrainosus, [...] 62 02/22/2025 12:51 PM EDT Temperature 36.6 C (97.9 F) 02/22/2025 12:51 PM EDT Respiratory Rate 20 02/22/2025 12:51 PM EDT [...] Influencers of Health Screening 10/29/2023 COVID-19 Vaccine ( - 2023-2 5 season) 2024 12/12/2021, 09/19/2021 Influenza Vaccine [...] Final Result from Last 3 Months Insurance [facility] Care Teams Casting Cleaner Relationship Specialty Start Date End Date Nkechi Pineda MD [address] [place], Located Within [facility] KIRSTIN Jimenez [phone] PCP - General Internal Medicine 08/30/24
== END 2025-03-27 14:45 | disposition home or self-care (01) ==
LOC: HO.HBST 13:59
PROVIDERS: PCP Internal Medicine; Visit Provider Counselor Mental Health
DX: F43.20 Adjustment disorder, unspecified (principal); Z71.89 Other specified counseling
CPT/HCPCS: 90837

== ENCOUNTER 2025-04-06 16:06 | Emergency (ER) | payer OTHER, SELFPAY ==
[2025-04-06 16:20] VITALS: BP 111/62; PULSE 81; RESP 20; TEMP 36.8; O2SAT 98; BMI 37.4
--- NOTE | 2025-04-06 16:21 | ED.GENADULT ---
HPI - General Adult General Chief complaint: General Medical Stated complaint: nausea, dizzy for 3 days Time Seen by Provider: 04/06/25 16:22 Source: patient Mode of arrival: ambulatory Limitations: no limitations History of Present Illness ED Provider: HPI narrative: patient with irregular menstruation missed her menses in February and in March she had only for 3 days comes here as she was feeling nauseated and when she checked the test at home was positive 2 times no vaginal bleeding no abdominal pain Related Data Previous Rx's ?Medication ?Instructions ?Recorded norethindrone (contraceptive) 0.35 0.35 mg PO DAILY #84 tabs 12/21/25 mg tablet cholecalciferol (vitamin D3) 125 125 mcg PO DAILY #90 caps 03/01/ mcg (5,000 unit) capsule iron,carbonyl 65 mg-vitamin C 125 1 tab PO DAILY #90 tabs 03/01/25 mg tablet,delayed release (Vitron-C) levothyroxine 50 mcg capsule 50 mcg PO DAILY #90 caps 03/01/25 mecobalamin (vitamin B12) 1,000 1,000 mcg sublingual DAILY #90 tabs 03/01/25 mcg disintegrating tablet,sublingual Allergies Allergy/AdvReac Type Severity Reaction Status Date / Time meperidine (From DEMEROL) Allergy Unknown SWELLING, Verified 04/06/25 16:20 ITCHY Review of Systems Review of Systems: Yes all other systems are reviewed and are negative PMF Past Medical History Medical History Dysuria Surveillance for control, oral contraceptives Possible exposure to STD Migraine without aura Hypothyroidism BMI 38.0-38.9,adult Obesity Recurrent headache Depression with anxiety History of anemia Vitamin D deficiency Depressed Surgical History History of loop electrical excision procedure (LEEP) Hx of cholecystectomy Family History Family History Mother HTN (hypertension) Diabetes Father HTN (hypertension) Social History Social History Housing: Apartment Alcohol intake: never Patient Tobacco Use Status: Former Tobacco user Tobacco use type: Cigarette e-Cigarette/Vaping Use: Never Used Advance Directives: No Advance Directives Information Provided: No service: No Current occupational status: unemployed Current occupational exposures/hazards: No Gender identity: Female Cognitive needs: No Hearing needs: No Vision needs: No Physical Exam ED Vital Signs: Vital Signs - 24 hr 04/06/25 16:20 Temperature 98.3 F Pulse Rate 81 Respiratory Rate 20 Blood Pressure 111/62 Pulse Oximetry 98 Oxygen Delivery Method Room Air BMI result Body Mass Index 37.4 Appearance: Alert. Oriented X3. No acute distress. Eyes: PERRLA, No Nystagmus ENT: Pharynx normal. Oral Mucosa moist Neck: Normal inspection. Neck supple. CVS: Normal heart rate and rhythm. Pulses normal. Respiratory: No respiratory distress. Equal air entry bilateral, no wheezing/rales/rhonchi Abdomen: Soft and nontender. Bowel sounds are present, no mass palpable, no CVA tenderness Skin: Skin warm and dry. Normal skin color. Normal skin turgor. Extremities: No lower extremity edema. No calf tenderness Neuro: Oriented X 3. Course Course Course Narrative: This is an RME: Additional HPI, ROS, PE not included below will be deferred to primary provider. RME assessment and note performed by: Kasey Hermosillo PA-C This is a 34-imzl-orl-female who presents to the ER with complaints of nausea and dizziness x 3-4 days. Reports that there is a chance she may be , LMP was March 04, did not have menses in February. No fevers. No CP or SOB. Pt with tests > very positive. Plan: Labs, UA, further ER eval needed Medical Decision Making Medical Decision Making MDM Narrative: patient's with early bedside ultrasound done showed small gestational sac in uterine with no heart activity likely early patient advised to follow up with Ob G Lab Data [facility] Lab Attestation statement: I reviewed the patient's lab results. Labs: Lab Results 04/06/25 Range/Units 16:31 Urine Color Dark Yellow Urine Appearance Clear Urine pH 6.5 (5.0-9.0) Ur Specific [place] >= 1.030 H (1.005-1.025) Urine Protein Trace (Neg-Trace) mg/dL Urine Glucose (UA) Negative (Negative) mg/dL Urine Ketones 15 (Negative) mg/dL Urine Blood Negative (Negative) Urine Nitrite Negative (Negative) Ur Leukocyte Esterase Trace H (Negative) Urine RBC 0-2 (0-2) /HPF Urine WBC 0-5 (0-5) /HPF Ur Squamous Epith Cells 11-20 (0-2) /HPF Urine Bacteria 1+ (None Seen) Hyaline Casts 0-2 (0-2) /LPF Urine Test POSITIVE H (NEGATIVE) Discharge Plan Discharge Clinical Impression: at early stage Patient Disposition: Home, Self-Care Instructions: at 7 to 10 Weeks (ED) Additional Instructions: you have very early likely 6-7 weeks follow up with your Ob G Prescriptions: No Action cholecalciferol (vitamin D3) 125 mcg (5,000 unit) capsule 125 mcg PO DAILY Qty: 90 0RF Vitron-C 65 mg iron- 125 mg tablet,delayed release (DR/EC) 1 tab PO DAILY Qty: 90 0RF Rx Instructions: swallow whole; do not chew/break/dissolve/open levothyroxine 50 mcg capsule 50 mcg PO DAILY Qty: 90 0RF mecobalamin (vitamin B12) 1,000 mcg tablet,disintegrating 1,000 mcg sublingual DAILY Qty: 90 0RF Rx Instructions: place tablet under tongue and allow to dissolve for at least30 secs before swallowing norethindrone (contraceptive) 0.35 mg tablet 0.35 mg PO DAILY Qty: 84 3RF Print Language: [place]
[2025-04-06 16:38] LABS: Appearance Urine Clear; Glucose Urine UA Negative (Negative); PH 6.5 (5.0-9.0); Specific Gravity - Urine >= 1.030 (1.005-1.025); UMIC TRIGGER UACC YES
[2025-04-06 16:52] LABS: UPreg QC Valid YES
[2025-04-06 17:42] VITALS: BP 111/62; PULSE 81; RESP 20; TEMP 36.8; O2SAT 98
== END 2025-04-06 17:43 | disposition home or self-care (01) ==
PROVIDERS: Physician Assistant Medical; Emergency Provider Internal Medicine; PCP Internal Medicine
DX: R11.2 Nausea with vomiting, unspecified (principal); R42 Dizziness and giddiness
CPT/HCPCS: 81001; 81025; 99282